=== PATIENT | female | born 1970 | race American Indian/Alaskan Native ===

== ENCOUNTER 2018-08-27 12:16 | Inpatient (IN) | payer MEDICARE ==
[2018-08-27] MEDS ORDERED: VANCOMYCIN 1,000 MG in NACL 0.9% 500 ML 500 ML IV ONE (12:34)
[2018-08-27] MEDS ORDERED: NACL 0.9% 1000 ML IV ONE (12:34)
[2018-08-27] MEDS ORDERED: CLEOCIN 600 MG/50 mL 600 MG/50 ML BAG IV ONE (12:38)
[2018-08-27] MEDS ORDERED: TYLENOL PR ONE (12:38)
--- NOTE | 2018-08-27 12:38 | Emergency Department Report ---
ED General Adult HPI - General Chief complaint: Fever Stated complaint: LOW BLOOD PRESSURE Time Seen by Provider: 08/27/18 12:33 Source: patient, EMS (ems notes not available at time of chart dictation), RN notes reviewed, old records reviewed Mode of arrival: Stretcher Limitations: Physical Limitation, Other (patient poor historian. Patient has Down syndrome.) - History of Present Illness Initial comments: Primary care Dr.: Dr. Mercer Past medical history: Down syndrome, anemia, iron deficiency anemia, depression, Alzheimer's, functional paraplegia, chronic sacral wounds His is a 48-year-old female who is brought to the hospital by EMS for history of hypotension. Patient currently being treated with doxycycline for "upper respiratory tract infection", as per her [facility] paperwork. As per verbal report from EMS, blood pressure was in the 90s, and may have had a fever. Patient is poorly verbal, a poor historian, he cannot describe exacerbating or relief factors. She is not able to describe the qualitative nature of her symptoms. Patient found to be febrile to 101, initially somewhat hypotensive with a blood pressure in the 90s, found to have a necrotic sacral wound, with foul-smelling discharge. Patient called as a code sepsis, and was resuscitated with IV fluids, vancomycin and aztreonam. Prior culture results were reviewed from August 2017, demonstrating Escherichia coli, with intermediate sensitivity to multiple agents, but sensitive to aztreonam. Patient was seen in consultation with general surgery, Dr. Beck, who will see the patient in consultation. Hospital physician, Dr. Perez, has accepted the patient to the medical service for continued medical management of presumed sepsis secondary to infected sacral wound, and possible healthcare associated pneumonia. -: unknown Quality: other Consistency: other Improves with: other Worsens with: other Associated Symptoms: fever/chills, weakness - Related Data Home Medications Medication Instructions Recorded Confirmed Last Taken Acetaminophen [Non-Aspirin] 650 mg PO Q4H 09/07/17 09/07/17 Unknown Docusate Sodium [Colace CAP] 100 mg PO BID PRN 09/07/17 09/07/17 Unknown Donepezil HCl 5 mg PO HS 09/07/17 09/07/17 Unknown Doxycycline Hyclate [Doxycycline 100 mg PO BID 09/07/17 09/07/17 Unknown Hyclate TAB] Famotidine [Pepcid] 20 mg PO BID 09/07/17 09/07/17 Unknown Ferrous Sulfate [Feosol 325 MG tab] 325 mg PO BID 09/07/17 09/07/17 Unknown Folic Acid [Folvite] 1 mg PO DAILY 09/07/17 09/07/17 Unknown Ipratropium/Albuterol Sulfate 1 puff PO BID 09/07/17 09/07/17 Unknown [DUONEB *Not for PRN Use*] Ketoconazole 2% [Nizoral] 1 applicatio TP DAILY 09/07/17 09/07/17 Unknown Vit D3/Folic Acid/B2/B6/B12 1 each PO DAILY 09/07/17 09/07/17 Unknown [Folgard Tablet] guaiFENesin DM [Robitussin Dm] 10 ml PO TID 09/07/17 09/07/17 Unknown Previous Rx's Medication Instructions Recorded Last Taken Type Warfarin [Coumadin] 5 mg PO DAILY@1700 #30 tablet 09/15/17 Unknown Rx cefUROXime [Ceftin] 500 mg PO Q12H 3 Days tablet 09/15/17 Unknown Rx Allergies Allergy/AdvReac Type Severity Reaction Status Date / Time lisinopril Allergy Unknown Verified 09/07/17 14:53 Penicillins Allergy Unknown Verified 09/07/17 14:53 ED Review of Systems ROS: Stated complaint: LOW BLOOD PRESSURE Other details as noted in HPI Comment: Unobtainable due to pts medical conditions Constitutional: fever ED Past Medical Hx - Past Medical History Additional medical history: Iron deficiency, Down Syndrome, Alzheimer's Disease, Major Depressive, Deficiency of other specified group vitamins, Spinal Stenosis, Paraplegia, gastro-esophageal reflux disease esophagitis, essential hypertension, anemia, calculus of kidney - Surgical History Additional Surgical History: cardiac surgery scar - Social History Smoking Status: Never Smoker - Medications Home Medications: Home Medications Medication Instructions Recorded Confirmed Last Taken Type Acetaminophen [Non-Aspirin] 650 mg PO Q4H 09/07/17 09/07/17 Unknown History Docusate Sodium [Colace CAP] 100 mg PO BID PRN 09/07/17 09/07/17 Unknown History Donepezil HCl 5 mg PO HS 09/07/17 09/07/17 Unknown History Doxycycline Hyclate [Doxycycline 100 mg PO BID 09/07/17 09/07/17 Unknown History Hyclate TAB] Famotidine [Pepcid] 20 mg PO BID 09/07/17 09/07/17 Unknown History Ferrous Sulfate [Feosol 325 MG tab] 325 mg PO BID 09/07/17 09/07/17 Unknown History Folic Acid [Folvite] 1 mg PO DAILY 09/07/17 09/07/17 Unknown History Ipratropium/Albuterol Sulfate 1 puff PO BID 09/07/17 09/07/17 Unknown History [DUONEB *Not for PRN Use*] Ketoconazole 2% [Nizoral] 1 applicatio TP DAILY 09/07/17 09/07/17 Unknown History Vit D3/Folic Acid/B2/B6/B12 1 each PO DAILY 09/07/17 09/07/17 Unknown History [Folgard Tablet] guaiFENesin DM [Robitussin Dm] 10 ml PO TID 09/07/17 09/07/17 Unknown History Warfarin [Coumadin] 5 mg PO DAILY@1700 #30 tablet 09/15/17 Unknown Rx cefUROXime [Ceftin] 500 mg PO Q12H 3 Days tablet 09/15/17 Unknown Rx ED Physical Exam - General Limitations: Physical Limitation General appearance: in no apparent distress, obese - Head Head exam: Present: atraumatic - Eye Eye exam: Present: normal appearance - ENT ENT exam: Present: normal orophraynx, mucous membranes dry, normal external ear exam - Neck Neck exam: Present: normal inspection, full ROM. Absent: tenderness, meningismus - Respiratory Respiratory exam: Present: decreased breath sounds. Absent: respiratory distress, wheezes, rales, rhonchi, stridor - Cardiovascular Cardiovascular Exam: Present: normal rhythm, tachycardia, normal heart sounds - GI/Abdominal GI/Abdominal exam: Present: soft. Absent: distended, tenderness, guarding, rebound, rigid, pulsatile mass - Rectal Rectal exam: Present: other (unstable sacral wound, with black necrotic tissue, foul-smelling) - Extremities Exam Extremities exam: Present: other (ulcers noted on the bilateral heels.) - Back Exam Back exam: Present: normal inspection. Absent: tenderness, CVA tenderness (R), paraspinal tenderness - Neurological Exam Neurological exam: Present: alert (alert to name. Answer simple questions. Moving upper extremities spontaneously.), other (unable to complete detailed neurologic examination secondary to Down syndrome.) - Psychiatric Psychiatric exam: Present: anxious - Skin Skin exam: Present: other (unstageable sacral ulcer noted.). Absent: intact ED Course Vital Signs 08/27/18 08/27/18 08/27/18 12:47 14:22 16:37 Temperature 101.2 F H Temperature [ Pre-Procedure] Pulse Rate 115 H 101 H 90 Pulse Rate [Pre -Procedure] Respiratory 16 16 16 Rate Respiratory Rate [Pre- Procedure] Blood Pressure 90/50 Blood Pressure [Pre-Procedure] Blood Pressure 90/50 99/66 98/59 [Right] O2 Sat by Pulse 98 96 96 Oximetry 08/27/18 08/27/18 08/27/18 18:00 18:44 18:57 Temperature Temperature [ 99.0 F Pre-Procedure] Pulse Rate 88 88 Pulse Rate [Pre 100 H -Procedure] Respiratory 16 16 Rate Respiratory 18 Rate [Pre- Procedure] Blood Pressure Blood Pressure 80/53 [Pre-Procedure] Blood Pressure 79/48 92/59 [Right] O2 Sat by Pulse 98 96 Oximetry - Procedure Description Procedures done: Using ultrasound guidance, left internal jugular vein was visualized, and a 3 inch 18-gauge Angiocath is advanced, after the area is p repped with typical aseptic technique, and anesthetized with 5 mL of 1% lidocaine. Vein collapse, unable to cannulate, catheter withdrawn, direct pressure applied, patient tolerated the procedure well without complication. - Central Line Placement Right Femoral Consent Obtained: emergent situation Time Out Performed: Yes Patient Placed on Monitor/Pulse Ox: Yes MD Prep: mask, gown, gloves Central Line Prep: Povidone-Iodine 1%, Chlorhexidine scrub, sterile drapes applied Local Anesthesia Used: Lidocaine 2% Amount of Anesthesia Used (mls): 10 Ultrasound Used for Placement: Yes Central Line Lumen Inserted: triple Bloods Obtained for Lab: No Central Line Position: good blood return, all ports aspirated, flus, sutured in place with 2-0 Dressing Applied: Tegaderm Patient Tolerated Procedure: well, no complications Complications: none left femoral Consent Obtained: emergent situation Time Out Performed: Yes Patient Placed on Monitor/Pulse Ox: Yes MD Prep: mask, gown, gloves Central Line Prep: Povidone-Iodine 1%, Chlorhexidine scrub, sterile drapes applied Local Anesthesia Used: Lidocaine 1% Amount of Anesthesia Used (mls): 10 Ultrasound Used for Placement: Yes Central Line Lumen Inserted: triple Bloods Obtained for Lab: No Additional Comments: Using ultrasound guidance, the left femoral vein is visualized. Catheter is a dvanced, and successfully cannulates left femoral vein, however line became contaminated secondary wires touching the line, therefore line is withdrawn, dispose of, direct pressure applied, wound cleansed, and bandaged. Patient tolerated the procedure well. ED Medical Decision Making - Lab Data Result diagrams: 08/27/18 13:15 08/27/18 13:15 Vital Signs 08/27/18 08/27/18 12:47 14:22 Temperature 101.2 F H Pulse Rate 115 H 101 H Respiratory 16 16 Rate Blood Pressure 90/50 Blood Pressure 90/50 99/66 [Right] O2 Sat by Pulse 98 96 Oximetry Lab Results 08/27/18 08/27/18 08/27/18 Range/Units 13:15 13:15 13:15 WBC 15.2 H (4.5-11.0) K/mm3 RBC 3.34 L (3.65-5.03) M/mm3 Hgb 9.1 L (10.1-14.3) gm/dl Hct 29.2 L (30.3-42.9) % MCV 87 (79-97) fl MCH 27 L (28-32) pg MCHC 31 (30-34) % RDW 19.3 H (13.2-15.2) % Plt Count 438 (140-440) K/mm3 Lymph % (Auto) 12.2 L (13.4-35.0) % Pickett % (Auto) 5.5 (0.0-7.3) % Eos % (Auto) 0.3 (0.0-4.3) % Baso % (Auto) 0.9 (0.0-1.8) % Lymph # 1.9 (1.2-5.4) K/mm3 Pickett # 0.8 (0.0-0.8) K/mm3 Eos # 0.0 (0.0-0.4) K/mm3 Baso # 0.1 (0.0-0.1) K/mm3 Seg Neutrophils % 81.1 H (40.0-70.0) % Seg Neutrophils # 12.4 H (1.8-7.7) K/mm3 PT (12.2-14.9) Sec. INR (0.87-1.13) APTT (24.2-36.6) Sec. Sodium (137-145) mmol/L Potassium (3.6-5.0) mmol/L Chloride (98-107) mmol/L Carbon Dioxide (22-30) mmol/L Anion Gap mmol/L BUN (7-17) mg/dL Creatinine (0.7-1.2) mg/dL Estimated GFR ml/min BUN/Creatinine Ratio % Glucose (65-100) mg/dL Lactic Acid 1.80 (0.7-2.0) mmol/L Calcium (8.4-10.2) mg/dL Total Bilirubin (0.1-1.2) mg/dL AST (5-40) units/L ALT (7-56) units/L Alkaline Phosphatase (35-129) units/L Total Creatine Kinase (30-135) units/L Total Protein (6.3-8.2) g/dL Albumin (3.9-5) g/dL Albumin/Globulin Ratio % Blood Type A POSITIVE Antibody Screen Negative 08/27/18 08/27/18 Range/Units 13:15 13:15 WBC (4.5-11.0) K/mm3 RBC (3.65-5.03) M/mm3 Hgb (10.1-14.3) gm/dl Hct (30.3-42.9) % MCV (79-97) fl MCH (28-32) pg MCHC (30-34) % RDW (13.2-15.2) % Plt Count (140-440) K/mm3 Lymph % (Auto) (13.4-35.0) % Pickett % (Auto) (0.0-7.3) % Eos % (Auto) (0.0-4.3) % Baso % (Auto) (0.0-1.8) % Lymph # (1.2-5.4) K/mm3 Pickett # (0.0-0.8) K/mm3 Eos # (0.0-0.4) K/mm3 Baso # (0.0-0.1) K/mm3 Seg Neutrophils % (40.0-70.0) % Seg Neutrophils # (1.8-7.7) K/mm3 PT 16.4 H (12.2-14.9) Sec. INR 1.28 H (0.87-1.13) APTT 37.8 H (24.2-36.6) Sec. Sodium 147 H (137-145) mmol/L Potassium 4.4 (3.6-5.0) mmol/L Chloride 112.3 H (98-107) mmol/L Carbon Dioxide 22 (22-30) mmol/L Anion Gap 17 mmol/L BUN 33 H (7-17) mg/dL Creatinine 1.1 (0.7-1.2) mg/dL Estimated GFR > 60 ml/min BUN/Creatinine Ratio 30 % Glucose 121 H (65-100) mg/dL Lactic Acid (0.7-2.0) mmol/L Calcium 8.3 L (8.4-10.2) mg/dL Total Bilirubin 0.30 (0.1-1.2) mg/dL AST 35 (5-40) units/L ALT 35 (7-56) units/L Alkaline Phosphatase 87 (35-129) units/L Total Creatine Kinase 242 H (30-135) units/L Total Protein 6.5 (6.3-8.2) g/dL Albumin 2.4 L (3.9-5) g/dL Albumin/Globulin Ratio 0.6 % Blood Type Antibody Screen - Radiology Data Radiology results: report reviewed, image reviewed X-ray of the chest shows median sternotomy, airspace opacities. CT scan of the pelvis: Findings [facility] [address] [place] [address] Cat Scan Report Signed Patient: JOANA MOER MR#: [id number] : 1970 Acct:[id number] Age/Sex: 48 / F ADM Date: 08/27/18 [facility] [address]: VIGNESH PEREZ MD Ordering Physician: MORTEZA FAGAN MD Date of Service: 08/27/18 Procedure(s): CT pelvis wo con Accession Number(s): [id number] cc: MORTEZA FAGAN MD FINAL REPORT PROCEDURE: CT PELVIS WO CON TECHNIQUE: Computerized axial tomography of the pelvis was performed without contrast material. HISTORY: infected wound. BEST STUDY POSSIBLE. PT HAS MENTAL/PHYSICAL DISABILITY. COMPARISON: None available for comparison TECHNICAL QUALITY: Satisfactory. FINDINGS: Imaged small and large intestine: There is a large volume of stool in the visualized portions of the colon. Genitourinary system: Urinary bladder wall thickening. The uterus is present. Lymph nodes/mesentery: Bilateral inguinal lymphadenopathy Intraperitoneal fluid: None . There is a right hip joint effusion. There are subarticular cysts or erosions in the right acetabulum and right femoral head. This could be related to an inflammatory arthritis, with infectious arthritis not excluded. There also some erosive changes of the posterior cortex of the right acetabulum. There is stranding in the right posterior subcutaneous tissues which could be related to cellulitis. There appear to be a few dots of subcutaneous air also present, which could be related to the given history of a wound. IMPRESSION: There is a right hip joint effusion with subarticular erosive changes, as well as erosive changes of the posterior right acetabulum. Although findings could be related to nonspecific inflammatory arthritis, cannot exclude inflammatory infectious process. There is right posterior subcutaneous stranding and a few dots of air, which are compatible with given history of a soft tissue wound. No IV contrast was administered to evaluate for small abscess. Transcribed By: [facility] Dictated By: DEYANIRA BRANHAM M.D. Electronically Authenticated By: Dianelys TAMAYO Date/Time: 08/27/18 [id number] - Medical Decision Making Differential diagnosis, including but not limited to: Urinary tract infection, pneumonia, bacteremia, inspected sacral decubitus ulcer Assessment and plan: 48-year-old female with probable sepsis secondary to infected sacral decubitus ulcer. Patient febrile, tachycardic, initially hypotensive, blood pressure now the 100s. Pending bed placement. Right femoral central line was attempted in the right groin, however it was aborted due to breaches in sterility. The patient tolerated this procedure wel l. Blood pressure now in the 100s, patient being adequately resuscitated, and does have peripheral IV access. Currently, does not meet criteria for vasopressor therapy, does not require central venous access at this time. Critical Care Time: Yes Critical care time in (mins) excluding proc time.: 35 Critical care attestation.: If time is entered above; I have spent that time in minutes in the direct care of this critically ill patient, excluding procedure time. ED Disposition Clinical Impression: Infected decubitus ulcer Sepsis Qualifiers: Sepsis type: sepsis due to unspecified organism Qualified Code(s): A41.9 - Sepsis, unspecified organism Disposition: DC-09 OP ADMIT IP TO THIS HOSP Is pt being admited?: Yes Condition: Fair
[2018-08-27] MEDS ORDERED: VANCOMYCIN/NS 1 GM/250 ML 1 GM/250 ML BAG IV ONE (13:00)
[2018-08-27] MEDS ORDERED: XYLOCAINE 1% 20 mL INFILTRATI ONE (13:10)
--- NOTE | 2018-08-27 13:18 | Consultation ---
History of Present Illness Consult date: 08/27/18 Chief complaint: sespis, sacral wound - History of present illness History of present illness: 48 yo F with hx of down's syndrome, bedbound, residing at custodial who presents for hypotension. She was found to have a foul smelling sacral wound along with multiple other wounds. The patient cannot provide any history due to baseline mental status and all history is obtained from the chart. No family at the bedside. Further workup of hypotension is pending. Surgery consulted by ER to evaluate sacral wounds. +fever in ER of 101.2 Past History Past Medical History: other (downs syndrome, GERD, dementia) Social history: other (lives in custodial) Family history: no significant family history Medications and Allergies Allergies Allergy/AdvReac Type Severity Reaction Status Date / Time lisinopril Allergy Unknown Verified 09/07/17 14:53 Penicillins Allergy Unknown Verified 09/07/17 14:53 Home Medications Medication Instructions Recorded Confirmed Last Taken Type Acetaminophen [Non-Aspirin] 650 mg PO Q4H 09/07/17 09/07/17 Unknown History Docusate Sodium [Colace CAP] 100 mg PO BID PRN 09/07/17 09/07/17 Unknown History Donepezil HCl 5 mg PO HS 09/07/17 09/07/17 Unknown History Doxycycline Hyclate [Doxycycline 100 mg PO BID 09/07/17 09/07/17 Unknown History Hyclate TAB] Famotidine [Pepcid] 20 mg PO BID 09/07/17 09/07/17 Unknown History Ferrous Sulfate [Feosol 325 MG tab] 325 mg PO BID 09/07/17 09/07/17 Unknown History Folic Acid [Folvite] 1 mg PO DAILY 09/07/17 09/07/17 Unknown History Ipratropium/Albuterol Sulfate 1 puff PO BID 09/07/17 09/07/17 Unknown History [DUONEB *Not for PRN Use*] Ketoconazole 2% [Nizoral] 1 applicatio TP DAILY 09/07/17 09/07/17 Unknown History Vit D3/Folic Acid/B2/B6/B12 1 each PO DAILY 09/07/17 09/07/17 Unknown History [Folgard Tablet] guaiFENesin DM [Robitussin Dm] 10 ml PO TID 09/07/17 09/07/17 Unknown History Warfarin [Coumadin] 5 mg PO DAILY@1700 #30 tablet 09/15/17 Unknown Rx cefUROXime [Ceftin] 500 mg PO Q12H 3 Days tablet 09/15/17 Unknown Rx Active Meds: Active Medications Vancomycin HCl (Vancomycin/Ns 1 Gm/250 Ml) 1 gm in 250 mls @ 166.667 mls/hr IV ONCE.ED ONE Stop: 08/27/18 14:29 Aztreonam 500 mg/ Sodium (Chloride) 50 mls @ 50 mls/hr IV Q12H YOSEPH; Protocol Sodium Hypochlorite (Dakin's Half Strength) 1 applic TP ONCE ONE Stop: 08/27/18 13:17 Review of Systems ROS unobtainable: due to mental status Exam Vital Signs Temp Pulse Resp BP Pulse Ox 101.2 F H 115 H 16 90/50 96 08/27/18 12:47 08/27/18 12:47 08/27/18 12:47 08/27/18 12:47 08/27/18 12:47 Narrative exam: Gen; awake and alert. NAD ENT: no scleral icterus or conjunctival pallor CV: s1, S2+ resp: even and unlabored Ext: multiple stage 2 wounds of feet - do not appear to be infected sacrum: large excoriation of lower back and sacral area with an approximately 5cm unstageable sacral wound. Foul smelling with necrotic tissue throughout wound. No drainage. No surrounding cellulitis. Moderate sensation in the area. Assessment and Plan 48 yo F with 1. unstageable sacral wound, infected 2. sepsis 3. hypotension Plan; 1. dakins to all wounds 2. antibiotics 3. sepsis w/u per 1'. 4. will need debridement of wound - will check with OR in the am to see when we can get her scheduled 5. consulting psychiatrist consult Thank you, please call with questions.
[2018-08-27 13:36] LABS: Basophils # (Auto) 0.1 K/mm3 (0.0-0.1); Basophils % (Auto) 0.9 % (0.0-1.8); Eosinophils % (Auto) 0.3 % (0.0-4.3); Hemoglobin 9.1 gm/dl (10.1-14.3); Lymphocytes # (Auto) 1.9 K/mm3 (1.2-5.4); Lymphocytes % (Auto) 12.2 % (13.4-35.0); Monocytes # (Auto) 0.8 K/mm3 (0.0-0.8); Monocytes % (Auto) 5.5 % (0.0-7.3)
[2018-08-27 13:45] LABS: Hematocrit 29.2 % (30.3-42.9); Mean Corpuscular HGB Conc 31 % (30-34); Mean Corpuscular Volume 87 fl (79-97); Platelet Count 438 K/mm3 (140-440); Red Blood Count 3.34 M/mm3 (3.65-5.03); Red Cell Distribution Width 19.3 % (13.2-15.2)
[2018-08-27 13:46] LABS: INR 1.28 (0.87-1.13)
[2018-08-27 13:47] LABS: Partial Thromboplastin Time 37.8 Sec. (24.2-36.6)
[2018-08-27 13:58] LABS: Alanine Aminotransferase 35 units/L (7-56); Albumin 2.4 g/dL (3.9-5); BUN/Creatinine Ratio 30; Blood Urea Nitrogen 33 mg/dL (7-17); Calcium 8.3 mg/dL (8.4-10.2); Hemolysis Index 3
[2018-08-27] MEDS ORDERED: DAKIN'S HALF STRENGTH TP ONE (14:16)
--- NOTE | 2018-08-27 14:17 | XRay Report ---
FINAL REPORT PROCEDURE: XR CHEST 1V AP TECHNIQUE: Chest radiograph anteroposterior view. CPT 35827 HISTORY: sepsis COMPARISON: 09/08/2017 FINDINGS: Heart: Normal. Mediastinum/Vessels: Normal. Lungs/Pleural space: Minimal patchy bilateral perihilar airspace opacities. No effusion or pneumothor ax. Bony thorax: No acute osseous abnormality. Life support devices: None. IMPRESSION: Mild patchy bilateral perihilar airspace opacities could be related to mild pulmonary edema or infect ious process.
[2018-08-27] MEDS ORDERED: TYLENOL PO ONE (14:23)
--- NOTE | 2018-08-27 14:25 | History and Physical Report ---
History of Present Illness Chief complaint: Unresponsive History of present illness: 48 YO Female [employer] [facility] Res[facility] with Downs Syndrome, Dementia, Debility, Sacral Decubitus Ulcer, HTN, GERD, Spinal Stenosis, Depression, Paraplegia presents to ED for evaluation. Pt is stuporous and unable to provide history. Pt history taken from ED staff as well as SNF staff. As per staff, the patient was found to have foul smelling discharge in the area of her sacral decubitus ulcer, as well as fever to 101.2 and low blood pressure. EMS notified and upon arrival the patient was found to be in distress with systolic blood pressure in the 80's. Pt transported to [facility] for further care and evaluation. Pt seen and evaluated in ED and found to have Sepsis, Infected Sacral Decubitus Ulcer and Encephalopathy. Pt admitted to [facility] and initiated on sepsis protocol. Surgery consulted in ED. Past History Past Medical History: pulmonary embolism, other (downs syndrome, GERD, dementia) Past Surgical History: CABG Social history: single, other (lives in residential) Family history: no significant family history Medications and Allergies Allergies Allergy/AdvReac Type Severity Reaction Status Date / Time lisinopril Allergy Unknown Verified 09/07/17 14:53 Penicillins Allergy Unknown Verified 09/07/17 14:53 Home Medications Medication Instructions Recorded Confirmed Last Taken Type Acetaminophen [Non-Aspirin] 650 mg PO Q4H 09/07/17 09/07/17 Unknown History Docusate Sodium [Colace CAP] 100 mg PO BID PRN 09/07/17 09/07/17 Unknown History Donepezil HCl 5 mg PO HS 09/07/17 09/07/17 Unknown History Doxycycline Hyclate [Doxycycline 100 mg PO BID 09/07/17 09/07/17 Unknown History Hyclate TAB] Famotidine [Pepcid] 20 mg PO BID 09/07/17 09/07/17 Unknown History Ferrous Sulfate [Feosol 325 MG tab] 325 mg PO BID 09/07/17 09/07/17 Unknown History Folic Acid [Folvite] 1 mg PO DAILY 09/07/17 09/07/17 Unknown History Ipratropium/Albuterol Sulfate 1 puff PO BID 09/07/17 09/07/17 Unknown History [DUONEB *Not for PRN Use*] Ketoconazole 2% [Nizoral] 1 applicatio TP DAILY 09/07/17 09/07/17 Unknown History Vit D3/Folic Acid/B2/B6/B12 1 each PO DAILY 09/07/17 09/07/17 Unknown History [Folgard Tablet] guaiFENesin DM [Robitussin Dm] 10 ml PO TID 09/07/17 09/07/17 Unknown History Warfarin [Coumadin] 5 mg PO DAILY@1700 #30 tablet 09/15/17 Unknown Rx cefUROXime [Ceftin] 500 mg PO Q12H 3 Days tablet 09/15/17 Unknown Rx Active Meds: Active Medications Vancomycin HCl (Vancomycin/Ns 1 Gm/250 Ml) 1 gm in 250 mls @ 166.667 mls/hr IV ONCE.ED ONE Stop: 08/27/18 14:29 Aztreonam 500 mg/ Sodium (Chloride) 50 mls @ 50 mls/hr IV Q12H YOSEPH; Protocol Review of Systems ROS unobtainable: due to mental status Exam - Constitutional Vitals: Temp Pulse Resp BP Pulse Ox 101.2 F H 101 H 16 99/66 96 08/27/18 12:47 08/27/18 14:22 08/27/18 14:22 08/27/18 14:22 08/27/18 14:22 General appearance: Present: mild distress - EENT Eyes: Present: miosis - Neck Neck: Present: supple, normal ROM - Respiratory Respiratory effort: normal Respiratory: bilateral: CTA - Cardiovascular Rhythm: other (tachycardia) Heart Sounds: Present: S1 & S2. Absent: rub, click Peripheral Pulses: abnormal (capillary refill greater than 3.5 seconds) - Abdominal General gastrointestinal: Present: soft, non-tender, non-distended, normal bowel sounds Female genitourinary: Present: normal - Integumentary Integumentary: Present: clear, dry, clammy, pale, decreased turgor - Musculoskeletal Musculoskeletal: generalized weakness - Psychiatric Psychiatric: no appropriate mood/affect, no intact judgment & insight, no memory intact - Neurologic Neurologic: CNII-XII intact, moves all extremities, no gait normal Results - Labs CBC & Chem 7: 08/27/18 13:15 08/27/18 13:15 Labs: Abnormal lab results 08/27/18 08/27/18 08/27/18 Range/Units 13:15 13:15 13:15 WBC 15.2 H (4.5-11.0) K/mm3 RBC 3.34 L (3.65-5.03) M/mm3 Hgb 9.1 L (10.1-14.3) gm/dl Hct 29.2 L (30.3-42.9) % MCH 27 L (28-32) pg RDW 19.3 H (13.2-15.2) % Lymph % (Auto) 12.2 L (13.4-35.0) % Seg Neutrophils % 81.1 H (40.0-70.0) % Seg Neutrophils # 12.4 H (1.8-7.7) K/mm3 PT 16.4 H (12.2-14.9) Sec. INR 1.28 H (0.87-1.13) APTT 37.8 H (24.2-36.6) Sec. Sodium 147 H (137-145) mmol/L Chloride 112.3 H (98-107) mmol/L BUN 33 H (7-17) mg/dL Glucose 121 H (65-100) mg/dL Calcium 8.3 L (8.4-10.2) mg/dL Total Creatine Kinase 242 H (30-135) units/L Albumin 2.4 L (3.9-5) g/dL Assessment and Plan - Patient Problems (1) Sepsis Current Visit: Yes Status: Acute Qualifiers: Sepsis type: sepsis due to unspecified organism Qualified Code(s): A41.9 - Sepsis, unspecified organism Plan to address problem: Sepsis protocol: IV Antibiotic therapy, IVF resuscitation therapy, serial lactic acid level, monitor uop q shift, chest x ray, CBC, CMP, (2) Encephalopathy Current Visit: Yes Status: Acute Plan to address problem: Toxic encephalopathy: Treat sepsis, neuro checks, seizure precautions, IVF res uscitation therapy. (3) Infected decubitus ulcer Current Visit: Yes Status: Acute Plan to address problem: IV antiboitic therapy, wound care consulted, surgery consulted in ED. (4) DVT prophylaxis Current Visit: Yes Status: Acute Plan to address problem: SCD to BLE while in bed.
[2018-08-27] MEDS ORDERED: SODIUM CHLORIDE FLUSH SYRINGE 10 ML IV PRN (14:53)
[2018-08-27] MEDS ORDERED: MORPHINE IV PRN (14:53)
[2018-08-27] MEDS ORDERED: COLACE PO PRN (14:57)
[2018-08-27] MEDS: TYLENOL PO SCH ×2 (15:07→22:43)
[2018-08-27] MEDS: NACL 0.9% IV SCH (16:14)
[2018-08-27] MEDS: AZACTAM IV SCH (16:14)
[2018-08-27] MEDS ORDERED: COUMADIN PO SCH (17:00)
--- NOTE | 2018-08-27 17:07 | Cat Scan Report ---
FINAL REPORT PROCEDURE: CT PELVIS WO CON TECHNIQUE: Computerized axial tomography of the pelvis was performed without contrast material. HISTORY: infected wound. BEST STUDY POSSIBLE. PT HAS MENTAL/PHYSICAL DISABILITY. COMPARISON: None available for comparison TECHNICAL QUALITY: Satisfactory. FINDINGS: Imaged small and large intestine: There is a large volume of stool in the visualized portions of the colon. Genitourinary system: Urinary bladder wall thickening. The uterus is present. Lymph nodes/mesentery: Bilateral inguinal lymphadenopathy Intraperitoneal fluid: None . There is a right hip joint effusion. There are subarticular cysts or erosions in the right acetabulum and right femoral head. This could be related to an inflammatory arthritis, with infectious arthriti s not excluded. There also some erosive changes of the posterior cortex of the right acetabulum. Ther e is stranding in the right posterior subcutaneous tissues which could be related to cellulitis. Ther e appear to be a few dots of subcutaneous air also present, which could be related to the given histo ry of a wound. IMPRESSION: There is a right hip joint effusion with subarticular erosive changes, as well as erosive changes of the posterior right acetabulum. Although findings could be related to nonspecific inflammatory arthri tis, cannot exclude inflammatory infectious process. There is right posterior subcutaneous stranding and a few dots of air, which are compatible with give n history of a soft tissue wound. No IV contrast was administered to evaluate for small abscess.
[2018-08-27] MEDS ORDERED: NACL 0.9% 1000 ML 1,000 ML ONE ×2 (17:59)
[2018-08-27] MEDS ORDERED: XYLOCAINE 1% 20 mL ONE (18:09)
[2018-08-27] MEDS ORDERED: LEVOPHED DRIP 4 MG/NS 250 ML 4 MG/250 ML BAG IV ONE (19:07)
[2018-08-27] MEDS: LEVOPHED DRIP 4 MG/NS 250 ML 4 MG/250 ML BAG IV SCH (19:42)
[2018-08-27] MEDS ORDERED: NACL 0.45% 1000 ML 1,000 ML IV ONE (22:43)
[2018-08-27] MEDS: NACL 0.45% 1000 ML 1,000 ML IV SCH (22:45)
[2018-08-27] MEDS: ARICEPT PO SCH (22:53)
[2018-08-27] MEDS: FEOSOL PO SCH (22:54)
[2018-08-27] MEDS: PEPCID PO SCH (22:54)
[2018-08-27] MEDS: SODIUM CHLORIDE FLUSH SYRINGE 10 ML IV SCH (22:54)
[2018-08-28 00:41] LABS: Bacteria,Urine 1+ /HPF (Negative); Bilirubin,Urine NEG (Negative); Blood,Urine MOD (Negative); Color,Urine Yellow (Yellow); Mucus,Urine FEW /HPF; Urobilinogen,Urine < 2.0 mg/dL (<2.0)
[2018-08-28 00:53] LABS: WBC,Urine > 182.0 /HPF (0.0-6.0)
[2018-08-28] MEDS: TYLENOL PO SCH ×6 (02:31→19:00)
[2018-08-28] MEDS ORDERED: LEVOPHED DRIP 4 MG/NS 250 ML 4 MG/250 ML BAG IV ONE ×2 (03:54→15:30)
[2018-08-28] MEDS: NACL 0.9% IV SCH ×2 (03:56→14:00)
[2018-08-28] MEDS: AZACTAM IV SCH ×2 (03:56→14:00)
[2018-08-28 05:02] LABS: INR 1.32 (0.87-1.13)
[2018-08-28] MEDS ORDERED: NACL 0.45% 1000 ML 1,000 ML IV ONE ×2 (06:28→14:21)
--- NOTE | 2018-08-28 07:15 | Progress Note ---
Assessment and Plan Assessment and plan: Unresponsive History of present illness: 48 YO Female [facility] [facility] Resident with Downs Syndrome, Dementia, Debility, Sacral Decubitus Ulcer, HTN, GERD, Spinal Stenosis, Depression, Paraplegia presents to ED for evaluation. Pt is stuporous and unable to provide history. Pt history taken from ED staff as well as SNF staff. As per staff, the patient was found to have foul smelling discharge in the area of her sacral decubitus ulcer, as well as fever to 101.2 and low blood pressure. EMS notified and upon arrival the patient was found to be in distress with systolic blood pressure in the 80's. Pt transported to [facility] for further care and evaluation. Pt seen and evaluated in ED and found to have Sepsis, Infected Sacral Decubitus Ulcer and Encephalopathy. Pt admitted to [facility] and initiated on sepsis protocol. Surgery consulted in ED. Past History Past Medical History: hx of pulmonary embolism, other (downs syndrome, GERD, dementia) Sepsis/ Infected decubitus ulcer POA wound care, empiric abx, case dw jessie DUKE to wounds, planned for surgical debridement metabolic Encephalopathy due to sepsis, improving hx of PE; on warfarin, INR currently 1.3 dvt ppx; chemical fully anticoagulated on warfarin, will dw periop INR goal with mann DUKE 1.3 History Interval history: Review of systems Constitutional: No fevers, no malaise, no joint pains CVS: No chest pain, no orthopnea, no dyspnea on exertion, no pedal edema GI: No abdominal pain, no diarrhea, no vomiting, no constipation Respiratory: No shortness of breath, no wheezing, no coughing Hospitalist Physical - Physical exam Narrative exam: General.:mild distress HEENT: Moist mucous membranes, extraocular muscles intact, no lymphadenopathy Neck: supple Cardiac: S1-S2 heard Lungs: clear to auscultation bilaterally Abdomen: soft , nontender, nondistended, bowel sounds positive Extremities: no edema clubbing or cyanosis Skin: : multiple stage 2 wounds of feet - do not appear to be infected sacrum: large excoriation of lower back and sacral area with an approximately 5cm unstageable sacral wound. Foul smelling with necrotic tissue throughout wound. No drainage. No surrounding cellulitis. Moderate sensation in the area. Neurologic: non verbal, moves all extremities Psych: calm - Constitutional Vitals: Temp Pulse Resp BP Pulse Ox 98.8 F 76 13 106/70 100 08/28/18 04:00 08/28/18 06:45 08/28/18 06:45 08/28/18 06:45 08/28/18 06:45 General appearance: Present: mild distress Results - Labs CBC & Chem 7: 08/27/18 13:15 08/27/18 13:15 Labs: Laboratory Last Values WBC 15.2 K/mm3 (4.5-11.0) H 08/27/18 13:15 RBC 3.34 M/mm3 (3.65-5.03) L 08/27/18 13:15 Hgb 9.1 gm/dl (10.1-14.3) L 08/27/18 13:15 Hct 29.2 % (30.3-42.9) L 08/27/18 13:15 MCV 87 fl (79-97) 08/27/18 13:15 MCH 27 pg (28-32) L 08/27/18 13:15 MCHC 31 % (30-34) 08/27/18 13:15 RDW 19.3 % (13.2-15.2) H 08/27/18 13:15 Plt Count 438 K/mm3 (140-440) 08/27/18 13:15 Lymph % (Auto) 12.2 % (13.4-35.0) L 08/27/18 13:15 [place] % (Auto) 5.5 % (0.0-7.3) 08/27/18 13:15 Eos % (Auto) 0.3 % (0.0-4.3) 08/27/18 13:15 Baso % (Auto) 0.9 % (0.0-1.8) 08/27/18 13:15 Lymph # 1.9 K/mm3 (1.2-5.4) 08/27/18 13:15 [place] # 0.8 K/mm3 (0.0-0.8) 08/27/18 13:15 Eos # 0.0 K/mm3 (0.0-0.4) 08/27/18 13:15 Baso # 0.1 K/mm3 (0.0-0.1) 08/27/18 13:15 Seg Neutrophils % 81.1 % (40.0-70.0) H 08/27/18 13:15 Seg Neutrophils # 12.4 K/mm3 (1.8-7.7) H 08/27/18 13:15 PT 16.8 Sec. (12.2-14.9) H 08/28/18 04:16 INR 1.32 (0.87-1.13) H 08/28/18 04:16 APTT 37.8 Sec. (24.2-36.6) H 08/27/18 13:15 Sodium 147 mmol/L (137-145) H 08/27/18 13:15 Potassium 4.4 mmol/L (3.6-5.0) 08/27/18 13:15 Chloride 112.3 mmol/L (98-107) H 08/27/18 13:15 Carbon Dioxide 22 mmol/L (22-30) 08/27/18 13:15 Anion Gap 17 mmol/L 08/27/18 13:15 BUN 33 mg/dL (7-17) H 08/27/18 13:15 Creatinine 1.1 mg/dL (0.7-1.2) 08/27/18 13:15 Estimated GFR > 60 ml/min 08/27/18 13:15 BUN/Creatinine Ratio 30 % 08/27/18 13:15 Glucose 121 mg/dL (65-100) H 08/27/18 13:15 Lactic Acid 1.40 mmol/L (0.7-2.0) 08/27/18 20:57 Calcium 8.3 mg/dL (8.4-10.2) L 08/27/18 13:15 Total Bilirubin 0.30 mg/dL (0.1-1.2) 08/27/18 13:15 AST 35 units/L (5-40) 08/27/18 13:15 ALT 35 units/L (7-56) 08/27/18 13:15 Alkaline Phosphatase 87 units/L (35-129) 08/27/18 13:15 Total Creatine Kinase 242 units/L (30-135) H 08/27/18 13:15 Total Protein 6.5 g/dL (6.3-8.2) 08/27/18 13:15 Albumin 2.4 g/dL (3.9-5) L 08/27/18 13:15 Albumin/Globulin Ratio 0.6 % 08/27/18 13:15 Urine Color Yellow (Yellow) 08/27/18 00:15 Urine Turbidity Cloudy (Clear) 08/27/18 00:15 Urine pH 5.0 (5.0-7.0) 08/27/18 00:15 Ur Specific [place] 1.010 (1.003-1.030) 08/27/18 00:15 Urine Protein 30 mg/dl mg/dL (Negative) 08/27/18 00:15 Urine Glucose (UA) Neg mg/dL (Negative) 08/27/18 00:15 Urine Ketones Neg mg/dL (Negative) 08/27/18 00:15 Urine Blood Mod (Negative) 08/27/18 00:15 Urine Nitrite Neg (Negative) 08/27/18 00:15 Urine Bilirubin Neg (Negative) 08/27/18 00:15 Urine Urobilinogen < 2.0 mg/dL (<2.0) 08/27/18 00:15 Ur Leukocyte Esterase Lg (Negative) 08/27/18 00:15 Urine WBC (Auto) > 182.0 /HPF (0.0-6.0) H 08/27/18 00:15 Urine RBC (Auto) 37.0 /HPF (0.0-6.0) 08/27/18 00:15 Urine Bacteria (Auto) 1+ /HPF (Negative) 08/27/18 00:15 Urine WBC Clumps 3+ /HPF 08/27/18 00:15 Urine Mucus Few /HPF 08/27/18 00:15 Blood Type A POSITIVE 08/27/18 13: Antibody Screen Negative 08/27/18 13:15
[2018-08-28] MEDS: LEVOPHED DRIP 4 MG/NS 250 ML 4 MG/250 ML BAG IV SCH ×2 (07:42→19:21)
[2018-08-28] MEDS: PEPCID PO SCH (10:00)
[2018-08-28] MEDS: FOLVITE PO SCH (10:00)
[2018-08-28] MEDS ORDERED: NON-FORMULARY (Vit D3/Folic Acid/B2/B6/B12 [Folgard Tablet] 1 EACH) PO SCH (10:00)
[2018-08-28] MEDS: NIZORAL TP SCH (10:00)
[2018-08-28] MEDS: FEOSOL PO SCH (10:00)
--- NOTE | 2018-08-28 11:43 | Consultation ---
History of Present Illness Consult date: 08/28/18 Requesting physician: SHEY GUAMAN Reason for consult: other (Severe sepsis with septic shock) History of present illness: 48 YO Female [facility] Resident with Downs Syndrome, Dementia, Debility, Sacral Decubitus Ulcer, HTN, GERD, Spinal Stenosis, Depression, Paraplegia presents to ED for evaluation. Pt is unable to provide history. Pt history taken from medical records and ED staff She is brought to the hospital by EMS for history of hypotension. Patient currently being treated with doxycycline for "upper respiratory tract infection", as per her halfway paperwork. Patient is poorly verbal, a poor historian, she cannot describe exacerbating or relief factors. She is not able to describe the qualitative nature of her symptoms. Patient found to be febrile to 101.2, initially somewhat hypotensive with a blood pressure in the 90s, found to have a necrotic sacral wound, with foul- smelling discharge. Patient called as a code sepsis, and was resuscitated with IV fluids, vancomycin and aztreonam. Prior culture results from August 2017, demonstrating Escherichia coli, with intermediate sensitivity to multiple agents, but sensitive to aztreonam. Patient received 3L of fluid in [facility] ED and remains hypotensive. A right femoral CVC was placed and the vasopressor support was initiated with norepinephrine. patient continues to require vasopressor support to maintain adequate perfusion pressures. I have been consulted for critical care management. Patient was seen and examined in the ED. Vitals, labs, medications, chart and imaging were reviewed. She is awake, moans and groans but able to give further history. She is currently on vasopressor support. Past medical history: Down syndrome, iron deficiency anemia, depression, functional paraplegia, chronic sacral wounds Past History Past Medical History: pulmonary embolism, other (downs syndrome, GERD, dementia) Past Surgical History: CABG Social history: single, other (lives in halfway) Family history: no significant family history Medications and Allergies Allergies Allergy/AdvReac Type Severity Reaction Status Date / Time lisinopril Allergy Unknown Verified 09/07/17 14:53 Penicillins Allergy Unknown Verified 09/07/17 14:53 Home Medications Medication Instructions Recorded Confirmed Last Taken Type Acetaminophen [Non-Aspirin] 650 mg PO Q8H PRN 09/07/17 08/27/18 Unknown History Docusate Sodium [Colace CAP] 100 mg PO BID PRN 09/07/17 08/27/18 Unknown History Doxycycline Hyclate [Doxycycline 100 mg PO BID 09/07/17 08/27/18 Unknown History Hyclate TAB] Famotidine [Pepcid] 20 mg PO BID 09/07/17 08/27/18 Unknown History Ketoconazole 2% [Nizoral] 1 applicatio TP DAILY 09/07/17 08/27/18 Unknown History Vit D3/Folic Acid/B2/B6/B12 1 each PO DAILY 09/07/17 08/27/18 Unknown History [Folgard Tablet] guaiFENesin DM [Robitussin Dm] 10 ml PO QID PRN 09/07/17 08/27/18 Unknown History Multivitamin Tab W-MINERAL 1 each PO QD 08/27/18 08/27/18 Unknown History [Multiple Vitamin/Mineral (Theragran M)] Active Meds: Active Medications Acetaminophen (Tylenol) 650 mg PO Q4H COUNTS INCLUDE 234 BEDS AT THE [facility] Last Admin: 08/28/18 05:27 Dose: Not Given Documented by: Docusate Sodium (Colace) 100 mg PO BID PRN PRN Reason: Constipation Donepezil HCl (Aricept) 5 mg PO HS COUNTS INCLUDE 234 BEDS AT THE [facility] Last Admin: 08/27/18 22:53 Dose: Not Given Documented by: Famotidine (Pepcid) 20 mg PO BID COUNTS INCLUDE 234 BEDS AT THE [facility] Last Admin: 08/27/18 22:54 Dose: Not Given Documented by: Ferrous Sulfate (Feosol) 325 mg PO BID COUNTS INCLUDE 234 BEDS AT THE [facility] Last Admin: 08/27/18 22:54 Dose: Not Given Documented by: Folic Acid (Folvite) 1 mg PO DAILY COUNTS INCLUDE 234 BEDS AT THE [facility] Guaifenesin (Guaifenesin Dm Syrup) 10 ml PO TID COUNTS INCLUDE 234 BEDS AT THE [facility] Last Admin: 08/27/18 22:53 Dose: Not Given Documented by: Aztreonam 500 mg/ Sodium (Chloride) 50 mls @ 50 mls/hr IV Q12H COUNTS INCLUDE 234 BEDS AT THE [facility]; Protocol Last Admin: 08/28/18 03:56 Dose: 50 mls/hr Documented by: Sodium Chloride (Nacl 0.45% 1000 Ml) 1,000 mls @ 125 mls/hr IV DIRECT COUNTS INCLUDE 234 BEDS AT THE [facility] Last Admin: 08/27/18 22:45 Dose: 125 mls/hr Documented by: Norepinephrine (Levophed Drip 4 Mg/Ns 250 Ml) 4 mg in 250 mls @ 7.5 mls/hr IV TITR YOSEPH; Protocol Last Admin: 08/28/18 07:42 Dose: 8 mcg/min, 30 mls/hr Documented by: Ketoconazole (Nizoral) 1 applic TP DAILY COUNTS INCLUDE 234 BEDS AT THE [facility] Morphine Sulfate (Morphine) 2 mg IV Q4H PRN PRN Reason: Pain, Moderate (4-6) Sodium Chloride (Sodium Chloride Flush Syringe 10 Ml) 10 ml IV BID COUNTS INCLUDE 234 BEDS AT THE [facility] Last Admin: 08/27/18 22:54 Dose: 10 ml Documented by: Sodium Chloride (Sodium Chloride Flush Syringe 10 Ml) 10 ml IV PRN PRN PRN Reason: LINE FLUSH Warfarin Sodium (Coumadin) 5 mg PO DAILY@1700 COUNTS INCLUDE 234 BEDS AT THE [facility]; Protocol Review of Systems ROS unobtainable: due to mental status Physical Examination Vital signs: Vital Signs Temp Pulse Resp BP Pulse Ox 101.2 F H 115 H 16 90/50 96 08/27/18 12:47 08/27/18 12:47 08/27/18 12:47 08/27/18 12:47 08/27/18 12:47 General.:mild distress, awake, alert HEENT: Dry mucous membranes, extraocular muscles intact, no lymphadenopathy Neck: supple Cardiac: Sternotomy scar, Tachycardia, S1-S2 heard Lungs: Decreased AE bilaterally, occasional rhonchi Abdomen: soft , obese, non tender, non distended, bowel sounds positive right femoral CVC, garland catheter Extremities: no edema clubbing or cyanosis Skin: : multiple stage 2 wounds of feet - do not appear to be infected sacrum: large excoriation of lower back and sacral area with an approximately 5cm unstageable sacral wound. Foul smelling with necrotic tissue throughout wound. No drainage. No surrounding cellulitis. Moderate sensation in the area( p er documentation). Neurologic: non verbal, moves all extremities Results - Laboratory Findings CBC and BMP: 08/27/18 13:15 08/27/18 13:15 PT/INR, D-dimer PT 16.8 Sec. (12.2-14.9) H 08/28/18 04:16 INR 1.32 (0.87-1.13) H 08/28/18 04:16 Abnormal lab findings: Abnormal Labs 08/27/18 08/27/18 08/27/18 00:15 13:15 13:15 WBC 15.2 H RBC 3.34 L Hgb 9.1 L Hct 29.2 L MCH 27 L RDW 19.3 H Lymph % (Auto) 12.2 L Seg Neutrophils % 81.1 H Seg Neutrophils # 12.4 H PT 16.4 H INR 1.28 H APTT 37.8 H Sodium Chloride BUN Glucose Lactic Acid Calcium Total Creatine Kinase Albumin Urine WBC (Auto) > 182.0 H 08/27/18 08/27/18 08/28/18 13:15 15:18 04:16 WBC RBC Hgb Hct MCH RDW Lymph % (Auto) Seg Neutrophils % Seg Neutrophils # PT 16.8 H INR 1.32 H APTT Sodium 147 H Chloride 112.3 H BUN 33 H Glucose 121 H Lactic Acid 2.40 H* Calcium 8.3 L Total Creatine Kinase 242 H Albumin 2.4 L Urine WBC (Auto) - Diagnostic Findings Chest x-ray: image reviewed (Bilateral perihilar infitrates, Sternotomy wires, no effusions) Assessment and Plan -Severe sepsis with septic shock -Sacral decubitius ulcer, infected POA -Lactic acidosis -Hyperglycemia -Hypernatremia -Acute on chronic encephalopathy( toxic, metabolic) -h/o CAD, unknown EF -Perihilar infiltrates on CXR -Anemia -History of PE, subtherapeutic INR -Admit ICU -Wean vasopressor support for MAP>65 -Continue broad spectrum antibiotics (Aztreonam, Vancomycin) ,follow cultures -De-escalate antibiotic therapy based on LILIANA and cultures reports -Garland catheter for accurate intake and output monitoring in this critically ill patient on vasopressor support in the setting of severe sepsis and septic shock -Re-assess need for garland catheter in the next 24 hours -Will discontinue femoral CVC in the next 24 hours and assess need for ongoing CVC access -PT/OT to evaluate -Nutritional consult for malnutrition -Aspiration precautions, place a small bowel feeding tube for nutritional support and free water administration if she fails swallow evaluation -Accuchecks with glycemic control. Target glucose 140-180 mg/dL -Therapeutic anticoagulation with lovenox. Once sacral debridement is done, bridge to coumadin with goal INR 2-3 for history of PE. -Mobility program for pressure ulcer prevention -Wound care, surgery plans for debridement once she is hemodynamically normal -Echocardiogram to assess LVEF especially in the setting of CXR findings suggestive of pulmonary edema FULL CODE CONDITION: CRITICAL PROGNOSIS: GUARDED The high probability of a clinically significant, sudden or life-threatening deterioration of the [respiratory, cardiovascular] system(s) required my full and direct attention, intervention and personal management. The aggregate critical care time was [75] minutes without overlap. Time includes spent on; [x] Data Review and interpretation [x] Patient assessment and monitoring of vital signs [x] Documentation [x] Medication orders and management
--- NOTE | 2018-08-28 13:35 | Event Note ---
Date: 08/28/18 Chart reviewed. Patient with UTI, sepsis on pressors, sacral wound. Will plan on bedside debridement when patient is more stable and able to be weaned from pressors. Until then, may be managed with BID dressing changes with dakmarcela per RN and antibiotics. I spoke with her sister Ms. Steinberg (POA) who is agreeable to bedside debridement but does not want anesthesia at this time. I will call her again when the patient is stable and obtain consent, hopefully within the next 24-48 hrs.
[2018-08-28] MEDS: NACL 0.45% 1000 ML 1,000 ML IV SCH (14:23)
[2018-08-29] MEDS: LEVOPHED DRIP 4 MG/NS 250 ML 4 MG/250 ML BAG IV SCH ×2 (01:39→23:53)
[2018-08-29] MEDS ORDERED: VANCOMYCIN PHARMACY TO DOSE IV SCH (01:46)
[2018-08-29] MEDS: NACL 0.9% IV SCH ×2 (02:53→12:41)
[2018-08-29] MEDS: AZACTAM IV SCH ×2 (02:53→12:41)
[2018-08-29] MEDS: VANCOMYCIN/NS 1 GM/250 ML 1 GM/250 ML BAG IV SCH ×2 (02:55→13:03)
[2018-08-29 05:17] LABS: INR 1.21 (0.87-1.13)
[2018-08-29] MEDS: TYLENOL PO SCH (06:12)
[2018-08-29] MEDS: NACL 0.45% 1000 ML 1,000 ML IV SCH (08:20)
[2018-08-29] MEDS: LOVENOX SUB-Q SCH ×2 (09:28→22:22)
[2018-08-29] MEDS: FOLVITE PO SCH (09:28)
[2018-08-29] MEDS: PEPCID PO SCH ×2 (09:28→22:22)
[2018-08-29] MEDS: FEOSOL PO SCH ×2 (09:29→22:23)
[2018-08-29] MEDS ORDERED: TYLENOL PO PRN (10:00)
[2018-08-29] MEDS ORDERED: XYLOCAINE TOPICAL 4% TP ONE (11:00)
--- NOTE | 2018-08-29 11:36 | Progress Note ---
Assessment and Plan Severe sepsis with septic shock Sacral decubitius ulcer, infected POA Lactic acidosis Hyperglycemia Hypernatremia Acute on chronic encephalopathy( toxic, metabolic) h/o CAD, unknown EF Perihilar infiltrates on CXR Anemia History of PE, subtherapeutic INR - Bolus 500 mls IVNS and 25 gms of 25% Albumin - continue to Wean vasopressor support for MAP>65 - Continue broad spectrum antibiotics (Aztreonam, Vancomycin) - De-escalate antibiotic therapy based on LILIANA and cultures reports - Garland catheter for accurate intake and output monitoring in this critically ill patient on vasopressor support in the setting of severe sepsis and septic shock - Re-assess need for garland catheter in the next 24 hours - Will discontinue femoral CVC in the next 24 hours and assess need for ongoing CVC access - PT/OT to evaluate - Nutritional consult for malnutrition - tolerating oral meals well - continue accuchecks with glycemic control for target glucose 140-180 mg/dL - continue anticoagulation for target INR 2.0 to 3.0 - repeat CBC in am re: bleeding post debridement - continue mobility program for pressure ulcer prevention - continue wound care per RN, WCT, surgeon - follow 2D ECHO ... re-evaluate in am & prn FULL CODE CONDITION: CRITICAL PROGNOSIS: GUARDED The high probability of a clinically significant, sudden or life-threatening deterioration of the [respiratory, cardiovascular] system(s) required my full and direct attention, intervention and personal management. The aggregate critical care time was [33] minutes without overlap. Time includes spent on; [x] Data Review and interpretation [x] Patient assessment and monitoring of vital signs [x] Documentation [x] Medication orders and management Subjective Date of service: 08/29/18 Principal diagnosis: Severe sepsis with septic shock; Sacral decubitus ulcer (infected POA) Interval history: Patient is seen today for: Severe sepsis with septic shock; Sacral decubitus ulcer, infected POA; Lactic acidosis; Hyperglycemia; Hypernatremia Seen and examined at bedside; 24hour events reviewed; nursing and respiratory care staff consulted; no adverse overnight events reported to me; remains on levophed drip at 4 mics/min; s/p sacral decubitus debridement by surgeon; no emesis or overt aspiration; no gross bleeding Objective Vital Signs - 12hr 08/29/18 08/29/18 08/29/18 00:00 00:04 01:24 Temperature 98.7 F 98.8 F Pulse Rate 78 78 Pulse Rate [ From Monitor] Respiratory 18 13 Rate Blood Pressure 109/63 Blood Pressure 118/65 [Right] O2 Sat by Pulse 100 100 100 Oximetry 08/29/18 08/29/18 08/29/18 01:30 01:40 01:50 Temperature Pulse Rate 79 81 73 Pulse Rate [ From Monitor] Respiratory 15 16 18 Rate Blood Pressure 109/63 109/63 Blood Pressure [Right] O2 Sat by Pulse 100 100 100 Oximetry 08/29/18 08/29/18 08/29/18 02:00 02:10 02:20 Temperature Pulse Rate 70 74 72 Pulse Rate [ From Monitor] Respiratory 17 16 17 Rate Blood Pressure 101/59 101/59 101/59 Blood Pressure [Right] O2 Sat by Pulse 100 100 100 Oximetry 08/29/18 08/29/18 08/29/18 02:30 02:40 02:50 Temperature Pulse Rate 80 75 76 Pulse Rate [ From Monitor] Respiratory 19 14 19 Rate Blood Pressure 101/59 93/66 93/66 Blood Pressure [Right] O2 Sat by Pulse 100 100 100 Oximetry 08/29/18 08/29/18 08/29/18 03:00 03:10 03:20 Temperature Pulse Rate 78 80 87 Pulse Rate [ From Monitor] Respiratory 16 14 15 Rate Blood Pressure 93/66 129/71 129/71 Blood Pressure [Right] O2 Sat by Pulse 100 100 100 Oximetry 08/29/18 08/29/18 08/29/18 03:30 03:37 03:40 Temperature 98.5 F Pulse Rate 74 82 Pulse Rate [ From Monitor] Respiratory 15 16 Rate Blood Pressure 129/71 130/67 Blood Pressure [Right] O2 Sat by Pulse 100 100 Oximetry 08/29/18 08/29/18 08/29/18 03:50 04:00 04:10 Temperature Pulse Rate 77 80 79 Pulse Rate [ From Monitor] Respiratory 12 13 16 Rate Blood Pressure 130/67 130/67 123/74 Blood Pressure [Right] O2 Sat by Pulse 100 100 100 Oximetry 08/29/18 08/29/18 08/29/18 04:20 04:30 04:40 Temperature Pulse Rate 79 78 78 Pulse Rate [ From Monitor] Respiratory 13 15 11 L Rate Blood Pressure 123/74 106/72 106/72 Blood Pressure [Right] O2 Sat by Pulse 100 100 100 Oximetry 08/29/18 08/29/18 08/29/18 04:50 05:00 05:10 Temperature Pulse Rate 81 94 H 96 H Pulse Rate [ From Monitor] Respiratory 17 14 14 Rate Blood Pressure 123/74 109/82 109/82 Blood Pressure [Right] O2 Sat by Pulse 100 95 100 Oximetry 08/29/18 08/29/18 08/29/18 05:20 05:30 05:40 Temperature Pulse Rate 75 82 82 Pulse Rate [ From Monitor] Respiratory 12 15 13 Rate Blood Pressure 109/82 120/84 120/84 Blood Pressure [Right] O2 Sat by Pulse 100 100 100 Oximetry 08/29/18 08/29/18 08/29/18 05:50 06:00 06:10 Temperature Pulse Rate 80 70 77 Pulse Rate [ From Monitor] Respiratory 11 L 20 18 Rate Blood Pressure 120/84 120/84 139/69 Blood Pressure [Right] O2 Sat by Pulse 100 100 100 Oximetry 08/29/18 08/29/18 08/29/18 06:20 06:30 06:40 Temperature Pulse Rate 79 80 78 Pulse Rate [ From Monitor] Respiratory 16 17 16 Rate Blood Pressure 139/69 139/69 85/42 Blood Pressure [Right] O2 Sat by Pulse 100 100 100 Oximetry 08/29/18 08/29/18 08/29/18 06:50 07:00 07:10 Temperature Pulse Rate 76 77 77 Pulse Rate [ From Monitor] Respiratory 19 19 20 Rate Blood Pressure 85/42 93/52 93/52 Blood Pressure [Right] O2 Sat by Pulse 100 100 Oximetry 08/29/18 08/29/18 08/29/18 07:20 07:30 07:40 Temperature Pulse Rate 79 90 85 Pulse Rate [ From Monitor] Respiratory 18 14 14 Rate Blood Pressure 93/52 98/65 98/65 Blood Pressure [Right] O2 Sat by Pulse 100 100 100 Oximetry 08/29/18 08/29/18 07:50 08:00 Temperature 98.3 F Pulse Rate 83 87 Pulse Rate [ 87 From Monitor] Respiratory 15 10 L Rate Blood Pressure 98/65 116/68 Blood Pressure [Right] O2 Sat by Pulse 100 100 Oximetry Constitutional: appears uncomfortable, other (middle aged AAF with downs syndrome fascies and mildly increased respiratory effort) Eyes: non-icteric ENT: oropharynx moist Neck: supple, no lymphadenopathy, no JVD Effort: mildly labored Ascultation: Bilateral: diminished breath sounds, rhonchi Percussion: Bilateral: not dull Cardiovascular: regular rate and rhythm Gastrointestinal: normoactive bowel sounds, soft, non-tender, non-distended Integumentary: decubitus ulcer Extremities: no cyanosis, edema, other (contracted) Neurologic: non-focal exam (grossly), pupils equal and round, unable to assess (otherwise) Psychiatric: anxious, other CBC and BMP: 08/27/18 13:15 08/27/18 13:15 ABG, PT/INR, D-dimer: PT/INR, D-dimer PT 15.7 Sec. (12.2-14.9) H 08/29/18 04:55 INR 1.21 (0.87-1.13) H 08/29/18 04:55 Abnormal lab findings: Abnormal Labs 08/27/18 08/27/18 08/27/18 00:15 13:15 13:15 WBC 15.2 H RBC 3.34 L Hgb 9.1 L Hct 29.2 L MCH 27 L RDW 19.3 H Lymph % (Auto) 12.2 L Seg Neutrophils % 81.1 H Seg Neutrophils # 12.4 H PT 16.4 H INR 1.28 H APTT 37.8 H Sodium Chloride BUN Glucose POC Glucose Lactic Acid Calcium Total Creatine Kinase Albumin Urine WBC (Auto) > 182.0 H 08/27/18 08/27/18 08/28/18 13:15 15:18 04:16 WBC RBC Hgb Hct MCH RDW Lymph % (Auto) Seg Neutrophils % Seg Neutrophils # PT 16.8 H INR 1.32 H APTT Sodium 147 H Chloride 112.3 H BUN 33 H Glucose 121 H POC Glucose Lactic Acid 2.40 H* Calcium 8.3 L Total Creatine Kinase 242 H Albumin 2.4 L Urine WBC (Auto) 08/29/18 08/29/18 08/29/18 03:23 04:55 05:56 WBC RBC Hgb Hct MCH RDW Lymph % (Auto) Seg Neutrophils % Seg Neutrophils # PT 15.7 H INR 1.21 H APTT Sodium Chloride BUN Glucose POC Glucose 141 H 118 H Lactic Acid Calcium Total Creatine Kinase Albumin Urine WBC (Auto) 08/29/18 10:14 WBC RBC Hgb Hct MCH RDW Lymph % (Auto) Seg Neutrophils % Seg Neutrophils # PT INR APTT Sodium Chloride BUN Glucose POC Glucose 171 H Lactic Acid Calcium Total Creatine Kinase Albumin Urine WBC (Auto) Chest x-ray: image reviewed (mild increased interstitial edema pattern) Allied health notes reviewed: nursing
--- NOTE | 2018-08-29 12:44 | Progress Note ---
Assessment and Plan Assessment and plan: Unresponsive History of present illness: 48 YO Female [facility] Resident with Downs Syndrome, Dementia, Debility, Sacral Decubitus Ulcer, HTN, GERD, Spinal Stenosis, Depression, Paraplegia presents to ED for evaluation. Pt is stuporous and unable to provide history. Pt history taken from ED staff as well as SNF staff. As per staff, the patient was found to have foul smelling discharge in the area of her sacral decubitus ulcer, as well as fever to 101.2 and low blood pressure. EMS notified and upon arrival the patient was found to be in distress with systolic blood pressure in the 80's. Pt transported to [facility] for further care and evaluation. Pt seen and evaluated in ED and found to have Sepsis, Infected Sacral Decubitus Ulcer and Encephalopathy. Past History Past Medical History: hx of pulmonary embolism, other (downs syndrome, GERD, dementia) DX Sepsis/ Infected decubitus ulcer POA septic shock Bilat feet ulcers POA- not infected septic shock acute metabolic Encephalopathy hx of PE Plan wound care, empiric abx, case dw jessie [facility] to wounds, planned for surgical debridement of sacral ulcer cont ivf, on iv pressors ID consult appreciated on lovenox, will bridge to warfarin after surgical debridement dvt ppx; fully anticoagulated CCT 33 minutes History Interval history: Review of systems Constitutional: No fevers, no malaise, no joint pains CVS: No chest pain, no orthopnea, no dyspnea on exertion, no pedal edema GI: No abdominal pain, no diarrhea, no vomiting, no constipation Respiratory: No shortness of breath, no wheezing, no coughing Hospitalist Physical - Physical exam Narrative exam: General.:mild distress HEENT: Moist mucous membranes, extraocular muscles intact, no lymphadenopathy Neck: supple Cardiac: S1-S2 heard Lungs: clear to auscultation bilaterally Abdomen: soft , nontender, nondistended, bowel sounds positive Extremities: no edema clubbing or cyanosis Skin: : multiple stage 2 wounds of feet - do not appear to be infected sacrum: large excoriation of lower back and sacral area with an approximately 5cm unstageable sacral wound. Foul smelling with necrotic tissue throughout woun d. No drainage. No surrounding cellulitis. Moderate sensation in the area. Neurologic: non verbal, moves all extremities Psych: calm - Constitutional Vitals: Temp Pulse Resp BP Pulse Ox 98.3 F 87 10 L 116/68 100 08/29/18 08:00 08/29/18 08:00 08/29/18 08:00 08/29/18 08:00 08/29/18 08:00 General appearance: Present: mild distress - Additional findings Additional findings: Results - Labs CBC & Chem 7: 08/30/18 13:53 08/30/18 Unknown Labs: Laboratory Last Values WBC 15.2 K/mm3 (4.5-11.0) H 08/27/18 13:15 RBC 3.34 M/mm3 (3.65-5.03) L 08/27/18 13:15 Hgb 9.1 gm/dl (10.1-14.3) L 08/27/18 13:15 Hct 29.2 % (30.3-42.9) L 08/27/18 13:15 MCV 87 fl (79-97) 08/27/18 13:15 MCH 27 pg (28-32) L 08/27/18 13:15 MCHC 31 % (30-34) 08/27/18 13:15 RDW 19.3 % (13.2-15.2) H 08/27/18 13:15 Plt Count 438 K/mm3 (140-440) 08/27/18 13:15 Lymph % (Auto) 12.2 % (13.4-35.0) L 08/27/18 13:15 [place] % (Auto) 5.5 % (0.0-7.3) 08/27/18 13:15 Eos % (Auto) 0.3 % (0.0-4.3) 08/27/18 13:15 Baso % (Auto) 0.9 % (0.0-1.8) 08/27/18 13:15 Lymph # 1.9 K/mm3 (1.2-5.4) 08/27/18 13:15 [place] # 0.8 K/mm3 (0.0-0.8) 08/27/18 13:15 Eos # 0.0 K/mm3 (0.0-0.4) 08/27/18 13:15 Baso # 0.1 K/mm3 (0.0-0.1) 08/27/18 13:15 Seg Neutrophils % 81.1 % (40.0-70.0) H 08/27/18 13:15 Seg Neutrophils # 12.4 K/mm3 (1.8-7.7) H 08/27/18 13:15 PT 15.7 Sec. (12.2-14.9) H 08/29/18 04:55 INR 1.21 (0.87-1.13) H 08/29/18 04:55 APTT 37.8 Sec. (24.2-36.6) H 08/27/18 13:15 Sodium 147 mmol/L (137-145) H 08/27/18 13:15 Potassium 4.4 mmol/L (3.6-5.0) 08/27/18 13:15 Chloride 112.3 mmol/L (98-107) H 08/27/18 13:15 Carbon Dioxide 22 mmol/L (22-30) 08/27/18 13:15 Anion Gap 17 mmol/L 08/27/18 13:15 BUN 33 mg/dL (7-17) H 08/27/18 13:15 Creatinine 1.1 mg/dL (0.7-1.2) 08/27/18 13:15 Estimated GFR > 60 ml/min 08/27/18 13:15 BUN/Creatinine Ratio 30 % 08/27/18 13:15 Glucose 121 mg/dL (65-100) H 08/27/18 13:15 POC Glucose 171 (70-105) H 08/29/18 10:14 Lactic Acid 1.40 mmol/L (0.7-2.0) 08/27/18 20:57 Calcium 8.3 mg/dL (8.4-10.2) L 08/27/18 13:15 Total Bilirubin 0.30 mg/dL (0.1-1.2) 08/27/18 13:15 AST 35 units/L (5-40) 08/27/18 13:15 ALT 35 units/L (7-56) 08/27/18 13:15 Alkaline Phosphatase 87 units/L (35-129) 08/27/18 13:15 Total Creatine Kinase 242 units/L (30-135) H 08/27/18 13:15 Total Protein 6.5 g/dL (6.3-8.2) 08/27/18 13:15 Albumin 2.4 g/dL (3.9-5) L 08/27/18 13:15 Albumin/Globulin Ratio 0.6 % 08/27/18 13:15 Urine Color Yellow (Yellow) 08/27/18 00:15 Urine Turbidity Cloudy (Clear) 08/27/18 00:15 Urine pH 5.0 (5.0-7.0) 08/27/18 00:15 Ur Specific [place] 1.010 (1.003-1.030) 08/27/18 00:15 Urine Protein 30 mg/dl mg/dL (Negative) 08/27/18 00:15 Urine Glucose (UA) Neg mg/dL (Negative) 08/27/18 00:15 Urine Ketones Neg mg/dL (Negative) 08/27/18 00:15 Urine Blood Mod (Negative) 08/27/18 00:15 Urine Nitrite Neg (Negative) 08/27/18 00:15 Urine Bilirubin Neg (Negative) 08/27/18 00:15 Urine Urobilinogen < 2.0 mg/dL (<2.0) 08/27/18 00:15 Ur Leukocyte Esterase Lg (Negative) 08/27/18 00:15 Urine WBC (Auto) > 182.0 /HPF (0.0-6.0) H 08/27/18 00:15 Urine RBC (Auto) 37.0 /HPF (0.0-6.0) 08/27/18 00:15 Urine Bacteria (Auto) 1+ /HPF (Negative) 08/27/18 00:15 Urine WBC Clumps 3+ /HPF 08/27/18 00:15 Urine Mucus Few /HPF 08/27/18 00:15 Blood Type A POSITIVE 08/27/18 13: Antibody Screen Negative 08/27/18 13:15
[2018-08-29] MEDS ORDERED: NACL 0.9% 500 ML 500 ML IV SCH (13:00)
--- NOTE | 2018-08-29 13:00 | Procedure Note ---
Date of procedure: 08/29/18 Pre-op diagnosis: infected sacral wound Post-op diagnosis: same Procedure: excisional debridement of infected sacral wound Findings: Consent obtained from the patient's sister/POA and timeout performed. 4% topical lidocaine was applied to the wound for approximately 10 minutes. The patient was positioned in a left lateral decubitus position. An excisional debridement was performed of all necrotic skin and subcutaneous tissue using a forcep, scalpel. There was pinpoint bleeding from the subcutaneous tissue which was controlled with pressure. Cultures were obtained. The wound did extend down to the bone, making this a stage IV sacral wound. Once all of the necrotic tissue was debrided, the wound was cleansed and packed with Dakin's moistened Kerlix (1 piece). This was covered with a sacral foam dressing. Predebridement measurements: 5 cm (l) x 5cm (w) x 5 cm (d) Post-debridement measurements: 6 cm (l) x 5cm (w) x 5.5 cm (d) Patient tolerated the procedure well, all sharps are disposed appropriately. The patient was in stable condition end of the procedure. Will plan to place wound vac tomorrow. Discussed with cyanide case hardener Anesthesia: local Surgeon: MAURIZIO FAM Estimated blood loss: minimal Pathology: list (wound culture) Specimen disposition: to lab Condition: stable Disposition: ICU
[2018-08-29] MEDS: SODIUM CHLORIDE FLUSH SYRINGE 10 ML IV SCH (13:04)
[2018-08-29] MEDS: AZACTAM/NS 2 GM/100 ML 2 GM/100 ML VIAL IV SCH ×2 (14:00→22:48)
--- NOTE | 2018-08-29 15:12 | Consultation ---
History of Present Illness - Reason for Consult Consult date: 08/29/18 sepsis, infected sacral decubitus Requesting physician: SHEY GUAMAN - History of Present Illness The patient is a 48-year-old female who is a sn[facility] resident with Down syndrome, dementia, debility, sacral decubitus ulcer, spinal stenosis, paraplegia was brought to the emergency room on 08/27/2018 with fever and altered mental status. She was noted to have some foul-smelling drainage from he r sacral decubitus ulcer and a fever of 101.2F with hypotension. Was admitted to the hospital, given IV fluids, started on empiric antibiotics due to concerns for sepsis. Patient was evaluated by general surgery who performed an excisional debridement of the infected sacral wound on 08/29/2018. Intraoperatively, as per the operative note, the wound was debrided all the way down to the bone. She is currently in ICU, on pressors which were just weaned off earlier today. Has indwelling Garland catheter which was inserted in the emergency room for discussion with the nurse. Patient is nonverbal at baseline, able to provide history. Review of Systems: Cannot be obtained due to patient's mental status. Past History Past Medical History: pulmonary embolism, other (downs syndrome, GERD, dementia) Past Surgical History: CABG Social history: single, other (lives in snf) Family history: no significant family history Medications and Allergies Allergies Allergy/AdvReac Type Severity Reaction Status Date / Time lisinopril Allergy Unknown Verified 09/07/17 14:53 Penicillins Allergy Unknown Verified 09/07/17 14:53 Home Medications Medication Instructions Recorded Confirmed Last Taken Type Acetaminophen [Non-Aspirin] 650 mg PO Q8H PRN 09/07/17 08/27/18 Unknown History Docusate Sodium [Colace CAP] 100 mg PO BID PRN 09/07/17 08/27/18 Unknown History Doxycycline Hyclate [Doxycycline 100 mg PO BID 09/07/17 08/27/18 Unknown History Hyclate TAB] Famotidine [Pepcid] 20 mg PO BID 09/07/17 08/27/18 Unknown History Ketoconazole 2% [Nizoral] 1 applicatio TP DAILY 09/07/17 08/27/18 Unknown History Vit D3/Folic Acid/B2/B6/B12 1 each PO DAILY 09/07/17 08/27/18 Unknown History [Folgard Tablet] guaiFENesin DM [Robitussin Dm] 10 ml PO QID PRN 09/07/17 08/27/18 Unknown History Multivitamin Tab W-MINERAL 1 each PO QD 08/27/18 08/27/18 Unknown History [Multiple Vitamin/Mineral (Theragran M)] Active Meds: Active Medications Acetaminophen (Tylenol) 650 mg PO Q4H PRN PRN Reason: Pain, Mild (1-3) Docusate Sodium (Colace) 100 mg PO BID PRN PRN Reason: Constipation Donepezil HCl (Aricept) 5 mg PO HS [facility] Last Admin: 08/27/18 22:53 Dose: Not Given Documented by: Enoxaparin Sodium (Lovenox) 70 mg 1 mg/kg (70 mg) SUB-Q Q12HR [facility] Last Admin: 08/29/18 09:28 Dose: 70 mg Documented by: Famotidine (Pepcid) 20 mg PO BID [facility] Last Admin: 08/29/18 09:28 Dose: 20 mg Documented by: Ferrous Sulfate (Feosol) 325 mg PO BID [facility] Last Admin: 08/29/18 09:29 Dose: 325 mg Documented by: Folic Acid (Folvite) 1 mg PO DAILY [facility] Last Admin: 08/29/18 09:28 Dose: 1 mg Documented by: Guaifenesin (Guaifenesin Dm Syrup) 10 ml PO TID [facility] Last Admin: 08/29/18 13:03 Dose: 10 ml Documented by: Sodium Chloride (Nacl 0.45% 1000 Ml) 1,000 mls @ 125 mls/hr IV DIRECT [facility] Last Admin: 08/29/18 08:20 Dose: 125 mls/hr Documented by: Norepinephrine (Levophed Drip 4 Mg/Ns 250 Ml) 4 mg in 250 mls @ 7.5 mls/hr IV TITR [facility]; Protocol Last Titration: 08/29/18 13:06 Dose: 0 mcg/min, 0 mls/hr Documented by: Vancomycin HCl (Vancomycin/Ns 1 Gm/250 Ml) 1 gm in 250 mls @ 250 mls/hr IV Q12H [facility] Last Admin: 08/29/18 13:03 Dose: 250 mls/hr Documented by: Sodium Chloride (Nacl 0.9% 500 Ml) 500 mls @ 999 mls/hr IV ONCE [facility] Last Admin: 08/29/18 12:42 Dose: 999 mls/hr Documented by: Aztreonam (Azactam/Ns 2 Gm/100 Ml) 2 gm in 100 mls @ 100 mls/hr IV Q8HR YOSEPH; Protocol Metronidazole (Flagyl 500 Mg/100 Ml) 500 mg in 100 mls @ 100 mls/hr IV Q8HR YOSEPH; Protocol Ketoconazole (Nizoral) 1 applic TP DAILY [facility] Last Admin: 08/28/18 10:00 Dose: Not Given Documented by: Morphine Sulfate (Morphine) 2 mg IV Q4H PRN PRN Reason: Pain, Moderate (4-6) Sodium Chloride (Sodium Chloride Flush Syringe 10 Ml) 10 ml IV BID [facility] Last Admin: 08/29/18 13:04 Dose: 10 ml Documented by: Sodium Chloride (Sodium Chloride Flush Syringe 10 Ml) 10 ml IV PRN PRN PRN Reason: LINE FLUSH Physical Examination - Physical Exam Narrative exam: Physical Exam: Constitutional: awake, confused. Head, Ears, Nose: Normocephalic, atraumatic. External ears, nose normal Eyes: Conjunctivae/corneas clear. No icterus. No ptosis. Neck: Supple, no meningeal signs Oral: unable to examine Cardiovascular: S1, S2 normal. Respiratory: Good air entry, clear to auscultation bilaterally GI: Soft, non-tender; bowel sounds normal. No peritoneal signs Musculoskeletal: contractures +, no pedal edema. Sacral wound +. garland +, femor al CVL + Skin: No rash or abscess Hem/Lymphatic: No palpable cervical or supraclavicular nodes. No lymphangitis Psych: no agitation Neurological: Awake, alert, non verbal. - Constitutional Vitals: Vital Signs Temp Pulse Resp BP Pulse Ox 98.3 F 87 10 L 116/68 100 08/29/18 08:00 08/29/18 08:00 08/29/18 08:00 08/29/18 08:00 08/29/18 08:00 Temperature -Last 24 Hours Temperature 98.3 F Temperature 98.5 F Temperature 98.8 F Temperature 98.7 F Results - Labs CBC & Chem 7: 08/27/18 13:15 08/27/18 13:15 Labs: Abnormal lab results 01/08/29/18 08/29/18 Range/Units 03:23 04:55 05:56 PT 15.7 H (12.2-14.9) Sec. INR 1.21 H (0.87-1.13) POC Glucose 141 H 118 H (70-105) 08/29/18 08/29/18 Range/Units 10:14 13:56 PT (12.2-14.9) Sec. INR (0.87-1.13) POC Glucose 171 H 176 H (70-105) - Imaging and Cardiology Chest x-ray: report reviewed, image reviewed (did not show any obvious pneumonia.) CT scan - pelvis: report reviewed, image reviewed (showed sacral cellulitis, right hip effusion. ) Assessment and Plan Cultures: 09/13/2017 sacral wound culture: Gram-negative rods 08/27/2018 urine culture: No growth at 24 hours 08/27/2018 blood culture: No growth at 48 hours A/P: 48-year-old female who is a snf resident with Down syndrome, dementia, debility, sacral decubitus ulcer, spinal stenosis, paraplegia, admitted with: #1 Septic shock: Likely secondary to infected sacral decubitus ulcer, stage IV and possible UTI: Status post debridement which was all the way down to the bone on 08/29/2018 by general surgery. Expect this to be polymicrobial, recommend treating with IV aztreonam, vancomycin and Flagyl. #2 UTI: UA on admission showed significant pyuria. Patient cannot provide any history. Urine culture so far with no growth. Continue IV antibiotics. #3 Acute encephalopathy: On background of Down syndrome and dementia. #4 penicillin allergy: Cannot clarify what kind of allergic reaction was due to the patient's mental status. Hence we'll treat with IV aztreonam. #5 Right hip effusion noted on CT: likely inflammatory. Watch for now. Recs: Increased aztreonam dose to 2 g every 8 hours IV Added IV Flagyl 500 mg every 8 hours Continue IV vancomycin Consider removal of femoral central line when feasible Will follow. Please call with questions. MD Stef [facility] C: [phone] O: [phone] F: [phone]
[2018-08-29] MEDS ORDERED: D50W (25GM) Syringe IV PRN (17:19)
[2018-08-29] MEDS: HumuLIN R SUB-Q SCH (17:40)
[2018-08-29] MEDS: FLAGYL 500 MG/100 ML 500 MG/100 ML BAG IV SCH ×2 (17:45→22:22)
[2018-08-29] MEDS: ARICEPT PO SCH (22:23)
[2018-08-30] MEDS: SODIUM CHLORIDE FLUSH SYRINGE 10 ML IV SCH ×3 (02:17→22:18)
[2018-08-30] MEDS: VANCOMYCIN/NS 1 GM/250 ML 1 GM/250 ML BAG IV SCH (02:17)
[2018-08-30] MEDS: LEVOPHED DRIP 4 MG/NS 250 ML 4 MG/250 ML BAG IV SCH ×2 (02:25→06:20)
[2018-08-30] MEDS: NACL 0.45% 1000 ML 1,000 ML IV SCH ×3 (02:25→20:22)
[2018-08-30] MEDS: FLAGYL 500 MG/100 ML 500 MG/100 ML BAG IV SCH ×3 (06:20→22:32)
[2018-08-30] MEDS: HumuLIN R SUB-Q SCH ×4 (06:24→18:30)
[2018-08-30 08:13] LABS: INR 15.43 (0.87-1.13)
[2018-08-30] MEDS: NIZORAL TP SCH (10:00)
[2018-08-30 10:16] LABS: INR 1.29 (0.87-1.13)
[2018-08-30] MEDS: LOVENOX SUB-Q SCH ×2 (10:18→22:18)
[2018-08-30] MEDS: FOLVITE PO SCH (10:18)
[2018-08-30] MEDS: PEPCID PO SCH ×2 (10:18→22:17)
[2018-08-30] MEDS: FEOSOL PO SCH ×2 (10:18→22:18)
--- NOTE | 2018-08-30 11:50 | Progress Note ---
Assessment and Plan Cultures: 09/13/2017 sacral wound culture: Proteus mirabilis. 08/27/2018 urine culture: No growth at 24 hours 08/27/2018 blood culture: No growth at 48 hours 08/29/2018 Debridement culture: in process A/P: 48-year-old female who is a fdc resident with Down syndrome, dementia, debility, sacral decubitus ulcer, spinal stenosis, paraplegia, admitted with: #1 Septic shock: Likely secondary to infected sacral decubitus ulcer, stage IV and possible UTI: Status post debridement which was all the way down to the bone on 08/29/2018 by general surgery. Hence, eventually will plan to treat as acute osteomyelitis. #2 UTI: UA on admission showed significant pyuria. Patient cannot provide any history. Urine culture so far with no growth. Continue IV antibiotics. #3 Acute encephalopathy: On background of Down syndrome and dementia. #4 Penicillin allergy: Per review of her chart in detail, it seems patient received IV Ceftriaxone during a prior admission in 08/2017, hence Cephalosporins should be safe. #5 Right hip effusion noted on CT: likely inflammatory. Watch for now. Recs: discontinued Aztreonam and Vancomycin Started IV Ceftriaxone 2 gm q24 hrs Continue IV Flagyl 500 mg every 8 hours Consider removal of femoral central line when feasible Will follow. Please call with questions. Sly Wilson MD [facility] C: [phone] O: [phone] F: [phone] Subjective Date of service: 08/30/18 Interval history: Seems awake, no distress. No fever. Non verbal. Off pressors. Objective - Exam Narrative Exam: Physical Exam: Constitutional: awake, confused. Head, Ears, Nose: Normocephalic, atraumatic. External ears, nose normal Eyes: Conjunctivae/corneas clear. No icterus. No ptosis. Neck: Supple, no meningeal signs Oral: unable to examine Cardiovascular: S1, S2 normal. Respiratory: Good air entry, clear to auscultation bilaterally GI: Soft, non-tender; bowel sounds normal. No peritoneal signs Musculoskeletal: contractures +, no pedal edema. Sacral wound +. femoral CVL +. Skin: No rash. Hem/Lymphatic: No palpable cervical or supraclavicular nodes. No lymphangitis Psych: no agitation Neurological: Awake, alert, non verbal. - Constitutional Vitals: Vital Signs Temp Pulse Resp BP Pulse Ox 99.0 F 81 27 H 127/60 99 08/30/18 08:00 08/30/18 08:45 08/30/18 08:45 08/30/18 08:45 08/30/18 08:45 Temperature -Last 24 Hours Temperature 99.0 F Temperature 99.8 F Temperature 99.4 F Temperature 99.9 F Temperature 98.2 F Temperature 97.4 F - Labs CBC & Chem 7: 08/27/18 13:15 08/27/18 13:15 Labs: Abnormal lab results 08/29/18 08/29/18 08/29/18 Range/Units 13:56 17:36 21:38 PT (12.2-14.9) Sec. INR (0.87-1.13) POC Glucose 176 H 136 H 178 H (70-105) 08/30/18 08/30/18 08/30/18 Range/Units 00:31 05:31 07:09 PT 109.8 H (12.2-14.9) Sec. INR 15.43 H* (0.87-1.13) POC Glucose 184 H 184 H (70-105) 08/30/18 08/30/18 Range/Units 08:39 11:28 PT 16.5 H (12.2-14.9) Sec. INR 1.29 H (0.87-1.13) POC Glucose 174 H (70-105)
--- NOTE | 2018-08-30 13:15 | Progress Note ---
Assessment and Plan Severe sepsis with septic shock Sacral decubitius ulcer, infected POA Lactic acidosis Hyperglycemia Hypernatremia Acute on chronic encephalopathy( toxic, metabolic) h/o CAD, unknown EF Perihilar infiltrates on CXR Anemia History of PE, subtherapeutic INR - IVNS at 75 mls/hr X 2 liters - continue to Wean vasopressor support for MAP>65 - Continue broad spectrum antibiotics (Aztreonam, Vancomycin) - De-escalate antibiotic therapy based on LILIANA and cultures reports - continue garland catheter for accurate intake and output monitoring in this critically ill patient on vasopressor support in the setting of severe sepsis a nd septic shock (also s/p sacral ulcer debridement and ongoing wound care) - Re-assess need for garland catheter daily - Discontinued femoral CVL - PT/OT to evaluate - Nutritional consult for optimization of nutritional intake - has good appetite and is tolerating oral meals well - continue accuchecks with glycemic control for target glucose 140-180 mg/dL - continue anticoagulation for target INR 2.0 to 3.0 - continue mobility program for pressure ulcer prevention - continue wound care per RN, WCT, surgeon - follow 2D ECHO ... re-evaluate in am & prn FULL CODE CONDITION: CRITICAL PROGNOSIS: GUARDED The high probability of a clinically significant, sudden or life-threatening deterioration of the [respiratory, cardiovascular] system(s) required my full and direct attention, intervention and personal management. The aggregate critical care time was [31] minutes without overlap. Time includes spent on; [x] Data Review and interpretation [x] Patient assessment and monitoring of vital signs [x] Documentation [x] Medication orders and management Subjective Date of service: 08/30/18 Principal diagnosis: Severe sepsis with septic shock; Sacral decubitus ulcer (infected POA) Interval history: Patient is seen today for: Severe sepsis with septic shock; Sacral decubitus ulcer, infected POA; Lactic acidosis; Hyperglycemia; Hypernatremia Seen and examined at bedside; 24hour events reviewed; nursing and respiratory care staff consulted; no adverse overnight events reported to me; remains on levophed drip; no emesis or overt aspiration; no gross bleeding from debridement site; no new issues respiratory-[place]ol[place] Objective Vital Signs - 12hr 08/30/18 08/30/18 08/30/18 01:30 01:45 02:00 Temperature Pulse Rate 88 85 83 Pulse Rate [ From Monitor] Respiratory 27 H 22 23 Rate Blood Pressure 91/48 97/49 91/47 O2 Sat by Pulse 100 100 100 Oximetry 08/30/18 08/30/18 08/30/18 02:15 02:30 02:45 Temperature Pulse Rate 81 80 76 Pulse Rate [ From Monitor] Respiratory 23 24 22 Rate Blood Pressure 76/40 76/40 120/63 O2 Sat by Pulse 100 100 100 Oximetry 08/30/18 08/30/18 08/30/18 03:00 03:15 03:30 Temperature Pulse Rate 86 85 94 H Pulse Rate [ From Monitor] Respiratory 20 23 19 Rate Blood Pressure 125/63 119/48 100/52 O2 Sat by Pulse 100 100 100 Oximetry 08/30/18 08/30/18 08/30/18 03:45 03:57 04:00 Temperature 99.8 F H Pulse Rate 84 80 Pulse Rate [ 86 From Monitor] Respiratory 23 24 Rate Blood Pressure 86/41 89/39 O2 Sat by Pulse 100 100 Oximetry 08/30/18 08/30/18 08/30/18 04:15 04:30 04:45 Temperature Pulse Rate 90 78 81 Pulse Rate [ From Monitor] Respiratory 25 H 22 25 H Rate Blood Pressure 118/62 95/47 101/51 O2 Sat by Pulse 100 100 100 Oximetry 08/30/18 08/30/18 08/30/18 05:00 05:15 05:30 Temperature Pulse Rate 83 89 82 Pulse Rate [ From Monitor] Respiratory 20 26 H 22 Rate Blood Pressure 96/41 96/51 90/44 O2 Sat by Pulse 100 100 100 Oximetry 08/30/18 08/30/18 08/30/18 05:45 06:00 06:15 Temperature Pulse Rate 82 80 78 Pulse Rate [ From Monitor] Respiratory 17 23 24 Rate Blood Pressure 73/33 79/37 114/58 O2 Sat by Pulse 100 100 100 Oximetry 08/30/18 08/30/18 08/30/18 06:30 06:45 07:00 Temperature Pulse Rate 89 79 92 H Pulse Rate [ From Monitor] Respiratory 22 18 22 Rate Blood Pressure 120/62 120/62 101/57 O2 Sat by Pulse 100 100 100 Oximetry 08/30/18 08/30/18 08/30/18 07:15 07:30 07:45 Temperature Pulse Rate 78 84 72 Pulse Rate [ From Monitor] Respiratory 0 L 28 H 25 H Rate Blood Pressure 87/37 98/53 98/47 O2 Sat by Pulse 100 100 Oximetry 08/30/18 08/30/18 08/30/18 08:00 08:15 08:31 Temperature 99.0 F Pulse Rate 75 74 74 Pulse Rate [ 75 From Monitor] Respiratory 24 24 19 Rate Blood Pressure 117/59 116/51 111/62 O2 Sat by Pulse 100 100 100 Oximetry 08/30/18 08:45 Temperature Pulse Rate 81 Pulse Rate [ From Monitor] Respiratory 27 H Rate Blood Pressure 127/60 O2 Sat by Pulse 99 Oximetry Constitutional: appears uncomfortable, other (middle aged AAF with downs syndrome fascies and mildly increased respiratory effort) Eyes: non-icteric ENT: oropharynx moist Neck: supple, no lymphadenopathy, no JVD Effort: mildly labored Ascultation: Bilateral: diminished breath sounds, rhonchi Percussion: Bilateral: not dull Cardiovascular: regular rate and rhythm Gastrointestinal: normoactive bowel sounds, soft, non-tender, non-distended Integumentary: decubitus ulcer Extremities: no cyanosis, edema, other (contracted) Neurologic: non-focal exam (grossly), pupils equal and round, unable to assess (otherwise) Psychiatric: anxious, other CBC and BMP: 09/04/18 05:57 09/04/18 05:57 ABG, PT/INR, D-dimer: PT/INR, D-dimer PT 16.5 Sec. (12.2-14.9) H 08/30/18 08:39 INR 1.29 (0.87-1.13) H 08/30/18 08:39 Abnormal lab findings: Abnormal Labs 08/27/18 08/27/18 08/27/18 00:15 13:15 13:15 WBC 15.2 H RBC 3.34 L Hgb 9.1 L Hct 29.2 L MCH 27 L RDW 19.3 H Lymph % (Auto) 12.2 L Seg Neutrophils % 81.1 H Seg Neutrophils # 12.4 H PT 16.4 H INR 1.28 H APTT 37.8 H Sodium Chloride BUN Glucose POC Glucose Lactic Acid Calcium Total Creatine Kinase Albumin Urine WBC (Auto) > 182.0 H 08/27/18 08/27/18 08/28/18 13:15 15:18 04:16 WBC RBC Hgb Hct MCH RDW Lymph % (Auto) Seg Neutrophils % Seg Neutrophils # PT 16.8 H INR 1.32 H APTT Sodium 147 H Chloride 112.3 H BUN 33 H Glucose 121 H POC Glucose Lactic Acid 2.40 H* Calcium 8.3 L Total Creatine Kinase 242 H Albumin 2.4 L Urine WBC (Auto) 08/29/18 08/29/18 08/29/18 03:23 04:55 05:56 WBC RBC Hgb Hct MCH RDW Lymph % (Auto) Seg Neutrophils % Seg Neutrophils # PT 15.7 H INR 1.21 H APTT Sodium Chloride BUN Glucose POC Glucose 141 H 118 H Lactic Acid Calcium Total Creatine Kinase Albumin Urine WBC (Auto) 08/29/18 08/29/18 08/29/18 10:14 13:56 17:36 WBC RBC Hgb Hct MCH RDW Lymph % (Auto) Seg Neutrophils % Seg Neutrophils # PT INR APTT Sodium Chloride BUN Glucose POC Glucose 171 H 176 H 136 H Lactic Acid Calcium Total Creatine Kinase Albumin Urine WBC (Auto) 08/29/18 08/30/18 08/30/18 21:38 00:31 05:31 WBC RBC Hgb Hct MCH RDW Lymph % (Auto) Seg Neutrophils % Seg Neutrophils # PT INR APTT Sodium Chloride BUN Glucose POC Glucose 178 H 184 H 184 H Lactic Acid Calcium Total Creatine Kinase Albumin Urine WBC (Auto) 08/30/18 08/30/18 08/30/18 07:09 08:39 11:28 WBC RBC Hgb Hct MCH RDW Lymph % (Auto) Seg Neutrophils % Seg Neutrophils # PT 109.8 H 16.5 H INR 15.43 H* 1.29 H APTT Sodium Chloride BUN Glucose POC Glucose 174 H Lactic Acid Calcium Total Creatine Kinase Albumin Urine WBC (Auto) Chest x-ray: image reviewed (hypoventilation; new PICC line with tip in distal SVC) Allied health notes reviewed: nursing
[2018-08-30 14:24] LABS: Basophils # (Auto) 0.1 K/mm3 (0.0-0.1); Basophils % (Auto) 0.5 % (0.0-1.8); Eosinophils # (Auto) 0.1 K/mm3 (0.0-0.4); Hematocrit 25.4 % (30.3-42.9); Hemoglobin 7.6 gm/dl (10.1-14.3); Lymphocytes # (Auto) 1.4 K/mm3 (1.2-5.4); Lymphocytes % (Auto) 12.7 % (13.4-35.0); Mean Corpuscular HGB Conc 30 % (30-34); Mean Corpuscular Volume 90 fl (79-97); Monocytes # (Auto) 0.4 K/mm3 (0.0-0.8); Monocytes % (Auto) 3.3 % (0.0-7.3); Platelet Count 382 K/mm3 (140-440); Red Blood Count 2.81 M/mm3 (3.65-5.03); Red Cell Distribution Width 19.4 % (13.2-15.2)
[2018-08-30 14:39] LABS: BUN/Creatinine Ratio 17; Blood Urea Nitrogen 10 mg/dL (7-17); Hemolysis Index 0
[2018-08-30] MEDS: ROCEPHIN/NS 2 GM/100 ML 2 GM/100 ML BAG IV SCH (15:42)
[2018-08-30] MEDS: PROAMATINE PO SCH ×2 (15:42→22:18)
--- NOTE | 2018-08-30 15:43 | Progress Note ---
Assessment and Plan Assessment and plan: Unresponsive History of present illness: 48 YO Female Long Term Facility Resident with Downs Syndrome, Dementia, Debility, Sacral Decubitus Ulcer, HTN, GERD, Spinal Stenosis, Depression, Paraplegia presents to ED for evaluation. Pt is stuporous and unable to provide history. Pt history taken from ED staff as well as SNF staff. As per staff, the patient was found to have foul smelling discharge in the area of her sacral decubitus ulcer, as well as fever to 101.2 and low blood pressure. EMS notified and upon arrival the patient was found to be in distress with systolic blood pressure in the 80's. Pt transported to [facility] for further care and evaluation. Pt seen and evaluated in ED and found to have Sepsis, Infected Sacral Decubitus Ulcer and Encephalopathy. Past History Past Medical History: hx of pulmonary embolism, other (downs syndrome, GERD, dementia) DX Sepsis/ Infected decubitus ulcer POA septic shock Bilat feet ulcers POA- not infected septic shock acute metabolic Encephalopathy hx of PE Plan wound care, empiric abx, case dw LEILANI, jessie to wounds, sp excisional debridement of infected sacral wound 08/29/18 cont ivf, on iv pressors ID consult appreciated on lovenox, will bridge to warfarin after surgical debridement dvt ppx; fully anticoagulated CCT 33 minutes History Interval history: Review of systems Constitutional: No fevers, no malaise, no joint pains CVS: No chest pain, no orthopnea, no dyspnea on exertion, no pedal edema GI: No abdominal pain, no diarrhea, no vomiting, no constipation Respiratory: No shortness of breath, no wheezing, no coughing Hospitalist Physical - Physical exam Narrative exam: General.:mild distress HEENT: Moist mucous membranes, extraocular muscles intact, no lymphadenopathy Neck: supple Cardiac: S1-S2 heard Lungs: clear to auscultation bilaterally Abdomen: soft , nontender, nondistended, bowel sounds positive Extremities: no edema clubbing or cyanosis Skin: : multiple stage 2 wounds of feet - do not appear to be infected sacrum: large excoriation of lower back and sacral area with an approximately 5cm unstageable sacral wound. Foul smelling with necrotic tissue throughout wound. No drainage. No surrounding cellulitis. Moderate sensation in the area. Neurologic: non verbal, moves all extremities Psych: calm - Constitutional Vitals: Temp Pulse Resp BP Pulse Ox 99.0 F 81 27 H 127/60 99 08/30/18 08:00 08/30/18 08:45 08/30/18 08:45 08/30/18 08:45 08/30/18 08:45 General appearance: Present: mild distress Results - Labs CBC & Chem 7: 08/30/18 13:53 08/30/18 Unknown Labs: Laboratory Last Values WBC 11.3 K/mm3 (4.5-11.0) H 08/30/18 13:53 RBC 2.81 M/mm3 (3.65-5.03) L 08/30/18 13:53 Hgb 7.6 gm/dl (10.1-14.3) L 08/30/18 13:53 Hct 25.4 % (30.3-42.9) L 08/30/18 13:53 MCV 90 fl (79-97) 08/30/18 13:53 MCH 27 pg (28-32) L 08/30/18 13:53 MCHC 30 % (30-34) 08/30/18 13:53 RDW 19.4 % (13.2-15.2) H 08/30/18 13:53 Plt Count 382 K/mm3 (140-440) 08/30/18 13:53 Lymph % (Auto) 12.7 % (13.4-35.0) L 08/30/18 13:53 [place] % (Auto) 3.3 % (0.0-7.3) 08/30/18 13:53 Eos % (Auto) 1.0 % (0.0-4.3) 08/30/18 13:53 Baso % (Auto) 0.5 % (0.0-1.8) 08/30/18 13:53 Lymph # 1.4 K/mm3 (1.2-5.4) 08/30/18 13:53 [place] # 0.4 K/mm3 (0.0-0.8) 08/30/18 13:53 Eos # 0.1 K/mm3 (0.0-0.4) 08/30/18 13:53 Baso # 0.1 K/mm3 (0.0-0.1) 08/30/18 13:53 Seg Neutrophils % 82.5 % (40.0-70.0) H 08/30/18 13:53 Seg Neutrophils # 9.3 K/mm3 (1.8-7.7) H 08/30/18 13:53 PT 16.5 Sec. (12.2-14.9) H 08/30/18 08:39 INR 1.29 (0.87-1.13) H 08/30/18 08:39 APTT 37.8 Sec. (24.2-36.6) H 08/27/18 13:15 Sodium 143 mmol/L (137-145) 08/30/18 Unknown Potassium 3.6 mmol/L (3.6-5.0) 08/30/18 Unknown Chloride 112.2 mmol/L (98-107) H 08/30/18 Unknown Carbon Dioxide 22 mmol/L (22-30) 08/30/18 Unknown Anion Gap 12 mmol/L 08/30/18 Unknown BUN 10 mg/dL (7-17) 08/30/18 Unknown Creatinine 0.6 mg/dL (0.7-1.2) L 08/30/18 Unknown Estimated GFR > 60 ml/min 08/30/18 Unknown BUN/Creatinine Ratio 17 % 08/30/18 Unknown Glucose 137 mg/dL (65-100) H 08/30/18 Unknown POC Glucose 174 (70-105) H 08/30/18 11:28 Lactic Acid 1.40 mmol/L (0.7-2.0) 08/27/18 20:57 Calcium 8.0 mg/dL (8.4-10.2) L 08/30/18 Unknown Total Bilirubin 0.30 mg/dL (0.1-1.2) 08/27/18 13:15 AST 35 units/L (5-40) 08/27/18 13:15 ALT 35 units/L (7-56) 08/27/18 13:15 Alkaline Phosphatase 87 units/L (35-129) 08/27/18 13:15 Total Creatine Kinase 242 units/L (30-135) H 08/27/18 13:15 Total Protein 6.5 g/dL (6.3-8.2) 08/27/18 13:15 Albumin 2.4 g/dL (3.9-5) L 08/27/18 13:15 Albumin/Globulin Ratio 0.6 % 08/27/18 13:15 Urine Color Yellow (Yellow) 08/27/18 00:15 Urine Turbidity Cloudy (Clear) 08/27/18 00:15 Urine pH 5.0 (5.0-7.0) 08/27/18 00:15 Ur Specific [place] 1.010 (1.003-1.030) 08/27/18 00:15 Urine Protein 30 mg/dl mg/dL (Negative) 08/27/18 00:15 Urine Glucose (UA) Neg mg/dL (Negative) 08/27/18 00:15 Urine Ketones Neg mg/dL (Negative) 08/27/18 00:15 Urine Blood Mod (Negative) 08/27/18 00:15 Urine Nitrite Neg (Negative) 08/27/18 00:15 Urine Bilirubin Neg (Negative) 08/27/18 00:15 Urine Urobilinogen < 2.0 mg/dL (<2.0) 08/27/18 00:15 Ur Leukocyte Esterase Lg (Negative) 08/27/18 00:15 Urine WBC (Auto) > 182.0 /HPF (0.0-6.0) H 08/27/18 00:15 Urine RBC (Auto) 37.0 /HPF (0.0-6.0) 08/27/18 00:15 Urine Bacteria (Auto) 1+ /HPF (Negative) 08/27/18 00:15 Urine WBC Clumps 3+ /HPF 08/27/18 00:15 Urine Mucus Few /HPF 08/27/18 00:15 Vancomycin Trough 13.8 ug/mL (5.0-20.0) 08/30/18 13:53 Blood Type A POSITIVE 08/27/18 13:15 Antibody Screen Negative 08/27/18 13:15 Nutrition/Malnutrition Assess - Dietary Evaluation Nutrition/Malnutrition Findings: Nutrition Notes Start: 08/29/18 15:12 Freq: Status: Active Protocol: Document 08/29/18 15:12 JOHN (Rec: 08/29/18 15:48 JOHN [email or web address]) Co-Sign 08/29/18 15:12 NHALL Nutrition Notes Current Diagnosis Decubitus(Pressure Ulcer) Sepsis Other Pertinent Diagnosis Down syndrome, AMS, anemia, functional paraplegia, spinal stenosis Labs/Tests Na: 147 BUN: 33 Pertinent Medications Norepinephrine Height 4 ft 2 in Weight 69.7 kg [place] Body Weight (lbs) 50.0 BMI 43.2 Weight Status Morbidly Obese Subjective/Other Information MD consult for malnutrition. Observed pt. tray with only a few bites missing. Pt. cannot feed herself per RN. RN agreed pt. would benefit from ensure enlive for extra nutrition. FLAME DEGREASER note stated pt. would eat more of meals if her diet was downgraded to pureed with thin liquids. Burn Absent Trauma Absent Current % PO Negligible #1 Nutrition Diagnosis Inadequate oral intake Etiology Chewing difficulties As Evidenced by Signs and Symptoms Pt ate <25% of breakfast tray Is patient on ventilator? No Is Patient Ambulatory and/or Out of Bed No REE-([facility]-confined to bed) 1311.468 Calculation Used for Recommendations [facility] Additional Notes Pro: 57 g/day (2.5g/kg IBW) Fluid: 1 ml/kcal Nutrition Intervention Change Diet Order: Pureed diet with thin liquids Add Supplement/Snack (indicate name/kcal Ensure Enlive daily /protein ) Provides kCal: 350 Provides Protein (gm) 20 Goal #1 Meet at least 80% of energy and protein needs via PO and ONS intakes Anticipated Discharge Needs: Pureed Diet with ONS PRN Follow-Up By: 08/31/18 Additional Comments F/u: PO and ONS intake
--- NOTE | 2018-08-30 16:20 | XRay Report ---
FINAL REPORT EXAM: XR CHEST 1V AP HISTORY: picc placement. picc line was pulled back 5cm TECHNIQUE: Frontal portable view of the chest Comparison: Chest x-ray performed earlier today at 13:10 FINDINGS: The PICC line catheter has been pulled back with the tip now projected in the region of the superior vena cava. There continues to be hypoinflation with prominence of the interstitial markings in both lungs and pa tchy areas of pulmonary consolidation in both lungs similar in appearance to the previous study. The cardiac silhouette is enlarged similar in appearance to the previous study. The bony structures are not significantly changed in the interval. IMPRESSION: 1. Tip of PICC line catheter projected in the region of the superior vena cava. 2. Hypoinflation with bilateral interstitial and airspace process and enlarged cardiac silhouette whi ch may represent changes of CHF. An infectious process cannot entirely be excluded.
--- NOTE | 2018-08-30 16:24 | XRay Report ---
FINAL REPORT EXAM: XR CHEST 1V AP HISTORY: Right arm PICC placement TECHNIQUE: Frontal portable view of the chest Comparison: Chest x-ray performed later today at 15:35 and chest x-ray dated August 27, 2018 FINDINGS: There is bilateral hypoinflation. There is prominence of the interstitial markings in both lungs with areas of pulmonary consolidation in both lungs and possible small right pleural fluid collection. The cardiac silhouette is enlarged similar in appearance to the previous study. A right-sided PICC line is demonstrated with the tip projected in the region the right atrium. The bony structures are not significantly changed in the interval. IMPRESSION: 1. Right-sided PICC line with tip projected in the region the right atrium. On the subsequent study p erformed at 1535 today the catheter was pulled back with the tip subsequently projected in the region of the superior vena cava. 2. Bilateral interstitial and airspace process with possible small right pleural fluid collection and enlarged cardiac silhouette. This may represent changes of CHF. An infectious component cannot entir alicia be excluded.
[2018-08-30] MEDS ORDERED: COUMADIN PO ONE (20:39)
[2018-08-30] MEDS: ARICEPT PO SCH (22:17)
[2018-08-31] MEDS: HumuLIN R SUB-Q SCH ×3 (00:33→12:36)
[2018-08-31] MEDS: NACL 0.45% 1000 ML 1,000 ML IV SCH (05:27)
[2018-08-31] MEDS: PROAMATINE PO SCH ×3 (05:31→21:39)
[2018-08-31] MEDS: FLAGYL 500 MG/100 ML 500 MG/100 ML BAG IV SCH ×3 (05:31→21:37)
[2018-08-31 05:48] LABS: INR 1.23 (0.87-1.13)
--- NOTE | 2018-08-31 09:49 | Progress Note ---
Assessment and Plan -Severe sepsis with septic shock -Sacral decubitius ulcer, infected POA -Lactic acidosis -Hyperglycemia -Hypernatremia -Acute on chronic encephalopathy( toxic, metabolic) -h/o CAD, unknown EF -Perihilar infiltrates on CXR -Anemia -History of PE, subtherapeutic INR -Continue broad antibiotics to complete a total of 4 week course per discussions with ID -RUE PICC line -Aspiration precautions with modified diet -Accuchecks with glycemic control. Target glucose 140-180 mg/dL -Therapeutic anticoagulation -Mobility program for pressure ulcer prevention -Wound care, wound vac -Supportive care Subjective Date of service: 08/31/18 Principal diagnosis: Severe sepsis with septic shock; Sacral decubitus ulcer (infected POA) Interval history: Patient is seen today for: Severe sepsis with septic shock, pressure ulcer, encephaloapthy Seen and examined at bedside; 24-hour events reviewed; nursing and respiratory care staff consulted; no adverse overnight events reported to me; Off vasopressor support, tolerating diet. No fevers or chills.. Objective Vital Signs - 12hr 08/30/18 08/30/18 08/30/18 22:00 22:15 22:30 Temperature Pulse Rate 78 72 81 Respiratory 19 18 15 Rate Blood Pressure 110/55 116/59 110/53 O2 Sat by Pulse 100 100 100 Oximetry 08/30/18 08/30/18 08/30/18 22:45 23:00 23:15 Temperature Pulse Rate 66 75 73 Respiratory 19 20 21 Rate Blood Pressure 99/41 95/41 99/47 O2 Sat by Pulse 100 100 100 Oximetry 08/30/18 08/30/18 08/31/18 23:30 23:45 00:00 Temperature 97.9 F Pulse Rate 71 73 Respiratory 21 24 Rate Blood Pressure 106/48 106/48 89/45 O2 Sat by Pulse 100 100 Oximetry 08/31/18 08/31/18 08/31/18 00:15 01:00 02:00 Temperature Pulse Rate 72 75 69 Respiratory 19 12 20 Rate Blood Pressure 93/48 101/54 99/48 O2 Sat by Pulse 100 100 Oximetry 08/31/18 08/31/18 08/31/18 02:45 03:00 03:15 Temperature Pulse Rate 63 58 L 59 L Respiratory 21 20 24 Rate Blood Pressure 82/46 86/42 113/47 O2 Sat by Pulse 100 100 100 Oximetry 08/31/18 08/31/18 08/31/18 03:30 03:45 03:53 Temperature 97.7 F Pulse Rate 61 63 Respiratory 19 22 Rate Blood Pressure 147/58 144/54 O2 Sat by Pulse 100 100 Oximetry 08/31/18 08/31/18 08/31/18 04:00 04:01 04:15 Temperature Pulse Rate 73 71 73 Respiratory 20 18 Rate Blood Pressure 147/60 105/38 O2 Sat by Pulse 100 Oximetry 08/31/18 08/31/18 08/31/18 04:30 04:45 05:00 Temperature Pulse Rate 61 62 63 Respiratory 17 19 20 Rate Blood Pressure 102/45 103/55 100/49 O2 Sat by Pulse 100 100 100 Oximetry 08/31/18 08/31/18 08/31/18 05:15 05:30 05:45 Temperature Pulse Rate 70 76 79 Respiratory 18 16 22 Rate Blood Pressure 99/45 95/50 105/57 O2 Sat by Pulse 100 100 100 Oximetry 08/31/18 08/31/18 08/31/18 06:00 06:15 06:30 Temperature Pulse Rate 78 81 71 Respiratory 20 11 L 21 Rate Blood Pressure 113/62 118/62 102/43 O2 Sat by Pulse 99 100 100 Oximetry 08/31/18 08/31/18 08/31/18 06:45 07:00 07:01 Temperature 97.7 F Pulse Rate 60 60 Respiratory 18 18 Rate Blood Pressure 117/42 120/36 O2 Sat by Pulse 100 100 Oximetry 08/31/18 08:13 Temperature Pulse Rate Respiratory Rate Blood Pressure O2 Sat by Pulse 100 Oximetry Constitutional: appears uncomfortable, other (middle aged AAF with downs syndrome fascies and mildly increased respiratory effort) Eyes: non-icteric ENT: oropharynx moist Neck: supple, no lymphadenopathy, no JVD Effort: mildly labored Ascultation: Bilateral: diminished breath sounds, rhonchi Percussion: Bilateral: not dull Cardiovascular: regular rate and rhythm Gastrointestinal: normoactive bowel sounds, soft, non-tender, non-distended Integumentary: decubitus ulcer, other (left hip pressure ulcer with wound vac in place) Extremities: no cyanosis, edema, other (contracted) Neurologic: non-focal exam (grossly), pupils equal and round Psychiatric: anxious, other CBC and BMP: 09/03/18 06:16 09/03/18 08:02 ABG, PT/INR, D-dimer: PT/INR, D-dimer PT 15.9 Sec. (12.2-14.9) H 08/31/18 04:48 INR 1.23 (0.87-1.13) H 08/31/18 04:48 Abnormal lab findings: Abnormal Labs 08/27/18 08/27/18 08/27/18 00:15 13:15 13:15 WBC 15.2 H RBC 3.34 L Hgb 9.1 L Hct 29.2 L MCH 27 L RDW 19.3 H Lymph % (Auto) 12.2 L Seg Neutrophils % 81.1 H Seg Neutrophils # 12.4 H PT 16.4 H INR 1.28 H APTT 37.8 H Sodium Chloride BUN Creatinine Glucose POC Glucose Lactic Acid Calcium Total Creatine Kinase Albumin Urine WBC (Auto) > 182.0 H 08/27/18 08/27/18 08/28/18 13:15 15:18 04:16 WBC RBC Hgb Hct MCH RDW Lymph % (Auto) Seg Neutrophils % Seg Neutrophils # PT 16.8 H INR 1.32 H APTT Sodium 147 H Chloride 112.3 H BUN 33 H Creatinine Glucose 121 H POC Glucose Lactic Acid 2.40 H* Calcium 8.3 L Total Creatine Kinase 242 H Albumin 2.4 L Urine WBC (Auto) 08/29/18 08/29/18 08/29/18 03:23 04:55 05:56 WBC RBC Hgb Hct MCH RDW Lymph % (Auto) Seg Neutrophils % Seg Neutrophils # PT 15.7 H INR 1.21 H APTT Sodium Chloride BUN Creatinine Glucose POC Glucose 141 H 118 H Lactic Acid Calcium Total Creatine Kinase Albumin Urine WBC (Auto) 08/29/18 08/29/18 08/29/18 10:14 13:56 17:36 WBC RBC Hgb Hct MCH RDW Lymph % (Auto) Seg Neutrophils % Seg Neutrophils # PT INR APTT Sodium Chloride BUN Creatinine Glucose POC Glucose 171 H 176 H 136 H Lactic Acid Calcium Total Creatine Kinase Albumin Urine WBC (Auto) 08/29/18 08/30/18 08/30/18 21:38 00:31 05:31 WBC RBC Hgb Hct MCH RDW Lymph % (Auto) Seg Neutrophils % Seg Neutrophils # PT INR APTT Sodium Chloride BUN Creatinine Glucose POC Glucose 178 H 184 H 184 H Lactic Acid Calcium Total Creatine Kinase Albumin Urine WBC (Auto) 08/30/18 08/30/18 08/30/18 07:09 08:39 11:28 WBC RBC Hgb Hct MCH RDW Lymph % (Auto) Seg Neutrophils % Seg Neutrophils # PT 109.8 H 16.5 H INR 15.43 H* 1.29 H APTT Sodium Chloride BUN Creatinine Glucose POC Glucose 174 H Lactic Acid Calcium Total Creatine Kinase Albumin Urine WBC (Auto) 08/30/18 08/30/18 08/30/18 13:53 17:56 Unknown WBC 11.3 H RBC 2.81 L Hgb 7.6 L Hct 25.4 L MCH 27 L RDW 19.4 H Lymph % (Auto) 12.7 L Seg Neutrophils % 82.5 H Seg Neutrophils # 9.3 H PT INR APTT Sodium Chloride 112.2 H BUN Creatinine 0.6 L Glucose 137 H POC Glucose 126 H Lactic Acid Calcium 8.0 L Total Creatine Kinase Albumin Urine WBC (Auto) 08/31/18 08/31/18 00:33 04:48 WBC RBC Hgb Hct MCH RDW Lymph % (Auto) Seg Neutrophils % Seg Neutrophils # PT 15.9 H INR 1.23 H APTT Sodium Chloride BUN Creatinine Glucose POC Glucose 126 H Lactic Acid Calcium Total Creatine Kinase Albumin Urine WBC (Auto) Allied health notes reviewed: nursing
[2018-08-31] MEDS: FOLVITE PO SCH (09:52)
[2018-08-31] MEDS: FEOSOL PO SCH ×2 (09:52→21:39)
[2018-08-31] MEDS: LOVENOX SUB-Q SCH ×2 (09:53→21:38)
[2018-08-31] MEDS: ROCEPHIN/NS 2 GM/100 ML 2 GM/100 ML BAG IV SCH (10:12)
[2018-08-31] MEDS: SODIUM CHLORIDE FLUSH SYRINGE 10 ML IV SCH ×2 (10:13→21:37)
--- NOTE | 2018-08-31 10:50 | Progress Note ---
Assessment and Plan Cultures: 09/13/2017 sacral wound culture: Proteus mirabilis. 08/27/2018 urine culture: No growth 08/27/2018 blood culture: No growth 08/29/2018 Debridement culture: in process, no growth thus far A/P: 48-year-old female who is a alf resident with Down syndrome, dementia, debility, sacral decubitus ulcer, spinal stenosis, paraplegia, admitted with: #1 Septic shock: Likely secondary to infected sacral decubitus ulcer, stage IV and possible UTI: Status post debridement which was all the way down to the bone on 08/29/2018 by general surgery. Hence, eventually will plan to treat as acute osteomyelitis. #2 UTI: UA on admission showed significant pyuria. Patient cannot provide any history. Urine culture so far with no growth. Continue IV antibiotics. #3 Acute encephalopathy: On background of Down syndrome and dementia. #4 Penicillin allergy: Per review of her chart in detail, it seems patient received IV Ceftriaxone during a prior admission in 08/2017, hence Cephalosporins should be safe and she has been tolerating it well. #5 Right hip effusion noted on CT: likely inflammatory. Watch for now. Recs: Continue IV Ceftriaxone 2 gm q24 hrs Continue IV Flagyl 500 mg every 8 hours Will follow. Please call with questions. Sly Wilson MD [facility] C: [phone] O: [phone] F: [phone] Subjective Date of service: 08/31/18 Principal diagnosis: Severe sepsis with septic shock; Sacral decubitus ulcer (infected POA) Interval history: Off pressors. Had a new PICC line. Femoral CVL removed. Objective - Exam Narrative Exam: Physical Exam: Constitutional: awake, confused but no distress Head, Ears, Nose: Normocephalic, atraumatic. External ears, nose normal Eyes: Conjunctivae/corneas clear. No icterus. No ptosis. Neck: Supple, no meningeal signs Oral: unable to examine Cardiovascular: S1, S2 normal. Respiratory: Good air entry, clear to auscultation bilaterally GI: Soft, non-tender; bowel sounds normal. No peritoneal signs Musculoskeletal: contractures +, no pedal edema. Sacral wound + with dressing Skin: No rash. Hem/Lymphatic: No palpable cervical or supraclavicular nodes. No lymphangitis Psych: calm, not agitated Neurological: Awake, alert, non verbal. - Constitutional Vitals: Vital Signs Temp Pulse Resp BP Pulse Ox 97.7 F 60 18 120/36 100 08/31/18 07:00 08/31/18 07:01 08/31/18 07:01 08/31/18 07:01 08/31/18 08:13 Temperature -Last 24 Hours Temperature 97.7 F Temperature 97.7 F Temperature 97.9 F Temperature 97.5 F Temperature 98.9 F Temperature 98.8 F - Labs CBC & Chem 7: 08/30/18 13:53 08/30/18 Unknown Labs: Abnormal lab results 08/30/18 08/30/18 08/30/18 Range/Units 11:28 13:53 17:56 WBC 11.3 H (4.5-11.0) K/mm3 RBC 2.81 L (3.65-5.03) M/mm3 Hgb 7.6 L (10.1-14.3) gm/dl Hct 25.4 L (30.3-42.9) % MCH 27 L (28-32) pg RDW 19.4 H (13.2-15.2) % Lymph % (Auto) 12.7 L (13.4-35.0) % Seg Neutrophils % 82.5 H (40.0-70.0) % Seg Neutrophils # 9.3 H (1.8-7.7) K/mm3 PT (12.2-14.9) Sec. INR (0.87-1.13) Chloride (98-107) mmol/L Creatinine (0.7-1.2) mg/dL Glucose (65-100) mg/dL POC Glucose 174 H 126 H (70-105) Calcium (8.4-10.2) mg/dL 08/30/18 08/31/18 08/31/18 Range/Units Unknown 00:33 04:48 WBC (4.5-11.0) K/mm3 RBC (3.65-5.03) M/mm3 Hgb (10.1-14.3) gm/dl Hct (30.3-42.9) % MCH (28-32) pg RDW (13.2-15.2) % Lymph % (Auto) (13.4-35.0) % Seg Neutrophils % (40.0-70.0) % Seg Neutrophils # (1.8-7.7) K/mm3 PT 15.9 H (12.2-14.9) Sec. INR 1.23 H (0.87-1.13) Chloride 112.2 H (98-107) mmol/L Creatinine 0.6 L (0.7-1.2) mg/dL Glucose 137 H (65-100) mg/dL POC Glucose 126 H (70-105) Calcium 8.0 L (8.4-10.2) mg/dL
[2018-08-31] MEDS: NIZORAL TP SCH (13:20)
[2018-08-31] MEDS: PEPCID PO SCH ×2 (13:26→21:38)
--- NOTE | 2018-08-31 15:59 | Progress Note ---
Assessment and Plan Assessment and plan: Unresponsive History of present illness: 48 YO Female Nursing Home Facility Resident with Downs Syndrome, Dementia, Debility, Sacral Decubitus Ulcer, HTN, GERD, Spinal Stenosis, Depression, Paraplegia presents to ED for evaluation. Pt is stuporous and unable to provide history. Pt history taken from ED staff as well as SNF staff. As per staff, the patient was found to have foul smelling discharge in the area of her sacral decubitus ulcer, as well as fever to 101.2 and low blood pressure. EMS notified and upon arrival the patient was found to be in distress with systolic blood pressure in the 80's. Pt transported to [facility] for further care and evaluation. Pt seen and evaluated in ED and found to have Sepsis, Infected Sacral Decubitus Ulcer and Encephalopathy. Past History Past Medical History: hx of pulmonary embolism, other (downs syndrome, GERD, dementia) DX Sepsis/ Infected decubitus ulcer POA septic shock Bilat feet ulcers POA- not infected septic shock acute metabolic Encephalopathy hx of PE Plan wound care, empiric abx, case dw LEILANI, jessie to wounds, sp excisional debridement of infected sacral wound 08/29/18 cont ivf, on iv pressors ID consult appreciated on warfarin with lovenox bridge, goal INR is 2 dvt ppx; fully anticoagulated CCT 33 minutes History Interval history: Review of systems Constitutional: No fevers, no malaise, no joint pains CVS: No chest pain, no orthopnea, no dyspnea on exertion, no pedal edema GI: No abdominal pain, no diarrhea, no vomiting, no constipation Respiratory: No shortness of breath, no wheezing, no coughing Hospitalist Physical - Physical exam Narrative exam: General.:mild distress HEENT: Moist mucous membranes, extraocular muscles intact, no lymphadenopathy Neck: supple Cardiac: S1-S2 heard Lungs: clear to auscultation bilaterally Abdomen: soft , nontender, nondistended, bowel sounds positive Extremities: no edema clubbing or cyanosis Skin: : multiple stage 2 wounds of feet - do not appear to be infected sacrum: sacral dressing was not removed Neurologic: non verbal, moves all extremities Psych: calm - Constitutional Vitals: Temp Pulse Resp BP Pulse Ox 97.6 F 83 17 101/56 100 08/31/18 12:00 08/31/18 13:00 08/31/18 13:00 08/31/18 13:00 08/31/18 12:45 General appearance: Present: mild distress Results - Labs CBC & Chem 7: 09/01/18 09:00 09/01/18 09:00 Labs: Laboratory Last Values WBC 11.3 K/mm3 (4.5-11.0) H 08/30/18 13:53 RBC 2.81 M/mm3 (3.65-5.03) L 08/30/18 13:53 Hgb 7.6 gm/dl (10.1-14.3) L 08/30/18 13:53 Hct 25.4 % (30.3-42.9) L 08/30/18 13:53 MCV 90 fl (79-97) 08/30/18 13:53 MCH 27 pg (28-32) L 08/30/18 13:53 MCHC 30 % (30-34) 08/30/18 13:53 RDW 19.4 % (13.2-15.2) H 08/30/18 13:53 Plt Count 382 K/mm3 (140-440) 08/30/18 13:53 Lymph % (Auto) 12.7 % (13.4-35.0) L 08/30/18 13:53 Bell % (Auto) 3.3 % (0.0-7.3) 08/30/18 13:53 Eos % (Auto) 1.0 % (0.0-4.3) 08/30/18 13:53 Baso % (Auto) 0.5 % (0.0-1.8) 08/30/18 13:53 Lymph # 1.4 K/mm3 (1.2-5.4) 08/30/18 13:53 Bell # 0.4 K/mm3 (0.0-0.8) 08/30/18 13:53 Eos # 0.1 K/mm3 (0.0-0.4) 08/30/18 13:53 Baso # 0.1 K/mm3 (0.0-0.1) 08/30/18 13:53 Seg Neutrophils % 82.5 % (40.0-70.0) H 08/30/18 13:53 Seg Neutrophils # 9.3 K/mm3 (1.8-7.7) H 08/30/18 13:53 PT 15.9 Sec. (12.2-14.9) H 08/31/18 04:48 INR 1.23 (0.87-1.13) H 08/31/18 04:48 APTT 37.8 Sec. (24.2-36.6) H 08/27/18 13:15 Sodium 143 mmol/L (137-145) 08/30/18 Unknown Potassium 3.6 mmol/L (3.6-5.0) 08/30/18 Unknown Chloride 112.2 mmol/L (98-107) H 08/30/18 Unknown Carbon Dioxide 22 mmol/L (22-30) 08/30/18 Unknown Anion Gap 12 mmol/L 08/30/18 Unknown BUN 10 mg/dL (7-17) 08/30/18 Unknown Creatinine 0.6 mg/dL (0.7-1.2) L 08/30/18 Unknown Estimated GFR > 60 ml/min 08/30/18 Unknown BUN/Creatinine Ratio 17 % 08/30/18 Unknown Glucose 137 mg/dL (65-100) H 08/30/18 Unknown POC Glucose 96 (70-105) 08/31/18 11:20 Lactic Acid 1.40 mmol/L (0.7-2.0) 08/27/18 20:57 Calcium 8.0 mg/dL (8.4-10.2) L 08/30/18 Unknown Total Bilirubin 0.30 mg/dL (0.1-1.2) 08/27/18 13:15 AST 35 units/L (5-40) 08/27/18 13:15 ALT 35 units/L (7-56) 08/27/18 13:15 Alkaline Phosphatase 87 units/L (35-129) 08/27/18 13:15 Total Creatine Kinase 242 units/L (30-135) H 08/27/18 13:15 Total Protein 6.5 g/dL (6.3-8.2) 08/27/18 13:15 Albumin 2.4 g/dL (3.9-5) L 08/27/18 13:15 Albumin/Globulin Ratio 0.6 % 08/27/18 13:15 Urine Color Yellow (Yellow) 08/27/18 00:15 Urine Turbidity Cloudy (Clear) 08/27/18 00:15 Urine pH 5.0 (5.0-7.0) 08/27/18 00:15 Ur Specific [place] 1.010 (1.003-1.030) 08/27/18 00:15 Urine Protein 30 mg/dl mg/dL (Negative) 08/27/18 00:15 Urine Glucose (UA) Neg mg/dL (Negative) 08/27/18 00:15 Urine Ketones Neg mg/dL (Negative) 08/27/18 00:15 Urine Blood Mod (Negative) 08/27/18 00:15 Urine Nitrite Neg (Negative) 08/27/18 00:15 Urine Bilirubin Neg (Negative) 08/27/18 00:15 Urine Urobilinogen < 2.0 mg/dL (<2.0) 08/27/18 00:15 Ur Leukocyte Esterase Lg (Negative) 08/27/18 00:15 Urine WBC (Auto) > 182.0 /HPF (0.0-6.0) H 08/27/18 00:15 Urine RBC (Auto) 37.0 /HPF (0.0-6.0) 08/27/18 00:15 Urine Bacteria (Auto) 1+ /HPF (Negative) 08/27/18 00:15 Urine WBC Clumps 3+ /HPF 08/27/18 00:15 Urine Mucus Few /HPF 08/27/18 00:15 Vancomycin Trough 13.8 ug/mL (5.0-20.0) 08/30/18 13:53 Blood Type A POSITIVE 08/27/18 13:15 Antibody Screen Negative 08/27/18 13:15 Nutrition/Malnutrition Assess - Dietary Evaluation Nutrition/Malnutrition Findings: Nutrition Notes Start: 08/29/18 15:12 Freq: Status: Active Protocol: Document 08/31/18 12:32 KH (Rec: 08/31/18 13:10 [email or web address]) Co-Sign 08/31/18 12:32 OL Nutrition Notes Initial or Follow up Reassessment Current Diagnosis Decubitus(Pressure Ulcer) Sepsis Other Pertinent Diagnosis Down syndrome, AMS, anemia, functional paraplegia, spinal stenosis Current Diet Pureed Diet Labs/Tests Reviewed Pertinent Medications Coumadin Height 4 ft 2 in Weight 69.7 kg [place] Body Weight (lbs) 50.0 BMI 43.2 Weight Status Morbidly Obese Subjective/Other Information MD consult for DNI education and F/u for PO and ONS intakes . Per RN, PO and ONS intakes are good. Franki has been ordered for pt. to aid in sacral wound healing. Pt. not appropriate for diet education . #2 Nutrition Diagnosis Increased nutrient needs ( specify in comment below) Comments: Protein Etiology wound healing needs As Evidenced by Signs and Symptoms Presence of chronic sacral wounds #1 Nutrition Diagnosis Inadequate oral intake As Evidenced by Signs and Symptoms Pt eating most of food trays Diagnosis Progress(for reassessment Improved documentation) Is patient on ventilator? No Is Patient Ambulatory and/or Out of Bed No [facility] [phone] Calculation Used for Recommendations [facility] Additional Notes Pro: 57 g/day (2.5g/kg IBW) Fluid: 1 ml/kcal Nutrition Intervention Change Diet Order: Continue Pureed diet with thin liquids Add Supplement/Snack (indicate name/kcal Ensure Enlive daily and franki /protein ) BID Provides kCal: 540 Provides Protein (gm) 25 Goal #1 Meet at least 80% of energy and protein needs via PO and ONS intakes Follow-Up By: 09/04/18 Additional Comments F/u: PO and ONS intakes
[2018-08-31] MEDS: COUMADIN PO SCH (18:44)
[2018-08-31] MEDS ORDERED: D5/0.45NS 1,000 ML IV SCH (20:00)
[2018-08-31] MEDS: ARICEPT PO SCH (21:38)
[2018-09-01] MEDS: HumuLIN R SUB-Q SCH ×4 (00:15→20:30)
[2018-09-01 03:37] LABS: INR 1.3 (0.87-1.13)
[2018-09-01] MEDS: FLAGYL 500 MG/100 ML 500 MG/100 ML BAG IV SCH (05:00)
[2018-09-01] MEDS: PROAMATINE PO SCH ×3 (05:44→22:33)
[2018-09-01] MEDS: SODIUM CHLORIDE FLUSH SYRINGE 10 ML IV SCH ×3 (07:43→22:33)
[2018-09-01] MEDS: NIZORAL TP SCH ×2 (07:43→11:16)
[2018-09-01] MEDS: AZACTAM/NS 2 GM/100 ML 2 GM/100 ML VIAL IV SCH (07:44)
[2018-09-01] MEDS: ARICEPT PO SCH ×2 (07:45→22:34)
[2018-09-01] MEDS: PEPCID PO SCH ×3 (07:45→22:34)
[2018-09-01] MEDS: FEOSOL PO SCH ×3 (07:45→22:34)
--- NOTE | 2018-09-01 10:01 | Progress Note ---
Assessment and Plan -Severe sepsis with septic shock -Sacral decubitius ulcer, infected POA -Lactic acidosis -Hyperglycemia -Hypernatremia -Acute on chronic encephalopathy( toxic, metabolic) -h/o CAD, unknown EF -Perihilar infiltrates on CXR -Anemia -History of PE, subtherapeutic INR -Continue antibiotics to complete a 4 week course per discussions with ID -Wound care, has wound vac to the left trochanteric region -Aspiration precautions -Accuchecks with glycemic control. Target glucose 140-180 mg/dL -Therapeutic anticoagulation -Mobility program for pressure ulcer prevention -Discharge planning Subjective Date of service: 09/01/18 Principal diagnosis: Severe sepsis with septic shock; Sacral decubitus ulcer (infected POA) Interval history: Patient is seen today for: severe sepsis with septic shock, decubitus ulcer, encephalopathy Seen and examined at bedside; 24-hour events reviewed; nursing and respiratory care staff consulted; no adverse overnight events reported to me; No fevers, no vomiting, tolerating her diet. Wound care on going Objective - Exam Narrative Exam: General.:mild distress HEENT: Moist mucous membranes, extraocular muscles intact, no lymphadenopathy Neck: supple Cardiac: S1-S2 heard Lungs: clear to auscultation bilaterally Abdomen: soft , nontender, nondistended, bowel sounds positive Extremities: no edema clubbing or cyanosis Skin: : multiple stage 2 wounds of feet - do not appear to be infected sacrum: sacral dressing was not removed Neurologic: non verbal, moves all extremities Psych: calm Vital Signs - 12hr 08/31/18 08/31/18 08/31/18 22:15 22:31 22:45 Temperature Pulse Rate 79 76 77 Respiratory 21 20 19 Rate Blood Pressure 106/52 103/53 99/57 O2 Sat by Pulse 100 100 100 Oximetry 08/31/18 08/31/18 08/31/18 23:00 23:15 23:27 Temperature Pulse Rate 78 74 72 Respiratory 20 18 19 Rate Blood Pressure 103/60 103/60 103/60 O2 Sat by Pulse 100 100 100 Oximetry 08/31/18 08/31/18 08/31/18 23:30 23:31 23:34 Temperature 96.5 F L Pulse Rate 75 Respiratory 18 20 Rate Blood Pressure 103/60 O2 Sat by Pulse 100 100 Oximetry 08/31/18 09/01/18 09/01/18 23:45 00:00 00:03 Temperature Pulse Rate 77 75 76 Respiratory 21 19 18 Rate Blood Pressure 103/60 97/54 97/54 O2 Sat by Pulse 100 100 100 Oximetry 09/01/18 09/01/18 09/01/18 00:05 00:13 00:15 Temperature 97.5 F L Pulse Rate 77 67 Respiratory 19 Rate Blood Pressure 103/60 O2 Sat by Pulse 100 Oximetry 09/01/18 09/01/18 09/01/18 00:31 00:45 01:00 Temperature Pulse Rate 72 71 69 Respiratory 18 18 19 Rate Blood Pressure 103/60 103/60 80/36 O2 Sat by Pulse 100 100 100 Oximetry 09/01/18 09/01/18 09/01/18 01:15 01:31 01:45 Temperature Pulse Rate 70 78 73 Respiratory 24 23 21 Rate Blood Pressure 94/56 94/56 94/56 O2 Sat by Pulse 100 97 100 Oximetry 09/01/18 09/01/18 09/01/18 02:00 02:05 02:15 Temperature Pulse Rate 72 73 73 Respiratory 20 18 16 Rate Blood Pressure 103/59 103/59 O2 Sat by Pulse 100 100 100 Oximetry 09/01/18 09/01/18 09/01/18 02:31 02:45 03:01 Temperature Pulse Rate 59 L 68 73 Respiratory 19 17 17 Rate Blood Pressure 103/59 103/59 116/67 O2 Sat by Pulse 100 100 100 Oximetry 09/01/18 09/01/18 09/01/18 03:15 03:19 03:31 Temperature Pulse Rate 76 78 77 Respiratory 18 17 Rate Blood Pressure 103/59 103/59 O2 Sat by Pulse 100 100 Oximetry 09/01/18 09/01/18 09/01/18 03:45 04:00 04:10 Temperature 97.5 F L Pulse Rate 74 72 68 Respiratory 13 19 18 Rate Blood Pressure 103/59 108/57 O2 Sat by Pulse 100 100 100 Oximetry 09/01/18 09/01/18 09/01/18 04:15 04:31 04:45 Temperature Pulse Rate 68 55 L 68 Respiratory 18 20 18 Rate Blood Pressure 108/57 108/57 108/57 O2 Sat by Pulse 100 100 100 Oximetry 09/01/18 09/01/18 09/01/18 05:00 05:15 05:31 Temperature Pulse Rate 74 88 76 Respiratory 17 19 19 Rate Blood Pressure 100/59 100/59 100/59 O2 Sat by Pulse 100 100 100 Oximetry 09/01/18 09/01/18 09/01/18 05:45 06:00 06:15 Temperature Pulse Rate 76 74 77 Respiratory 17 17 17 Rate Blood Pressure 100/59 108/53 108/53 O2 Sat by Pulse 100 100 100 Oximetry 09/01/18 09/01/18 09/01/18 06:31 06:45 07:00 Temperature Pulse Rate 76 71 70 Respiratory 18 17 19 Rate Blood Pressure 108/53 108/53 110/50 O2 Sat by Pulse 100 100 100 Oximetry 09/01/18 09/01/18 09/01/18 07:15 07:31 07:45 Temperature Pulse Rate 64 61 59 L Respiratory 17 18 16 Rate Blood Pressure 110/50 108/53 108/53 O2 Sat by Pulse 100 100 100 Oximetry 09/01/18 08:07 Temperature Pulse Rate Respiratory Rate Blood Pressure O2 Sat by Pulse 100 Oximetry Constitutional: appears uncomfortable, other (middle aged AAF with downs syndrome fascies and mildly increased respiratory effort) Eyes: non-icteric ENT: oropharynx moist Neck: supple, no lymphadenopathy, no JVD Effort: mildly labored Ascultation: Bilateral: diminished breath sounds, rhonchi Percussion: Bilateral: not dull Cardiovascular: regular rate and rhythm Gastrointestinal: normoactive bowel sounds, soft, non-tender, non-distended Integumentary: decubitus ulcer, other (left hip wound vac) Extremities: no cyanosis, edema, other (contracted) Neurologic: non-focal exam (grossly), pupils equal and round, unable to assess (otherwise) Psychiatric: anxious, other CBC and BMP: 09/03/18 06:16 09/03/18 08:02 ABG, PT/INR, D-dimer: PT/INR, D-dimer PT 16.6 Sec. (12.2-14.9) H 09/01/18 03:15 INR 1.30 (0.87-1.13) H 09/01/18 03:15 Abnormal lab findings: Abnormal Labs 08/27/18 08/27/18 08/27/18 00:15 13:15 13:15 WBC 15.2 H RBC 3.34 L Hgb 9.1 L Hct 29.2 L MCH 27 L RDW 19.3 H Lymph % (Auto) 12.2 L Seg Neutrophils % 81.1 H Seg Neutrophils # 12.4 H PT 16.4 H INR 1.28 H APTT 37.8 H Sodium Chloride BUN Creatinine Glucose POC Glucose Lactic Acid Calcium Total Creatine Kinase Albumin Urine WBC (Auto) > 182.0 H 08/27/18 08/27/18 08/28/18 13:15 15:18 04:16 WBC RBC Hgb Hct MCH RDW Lymph % (Auto) Seg Neutrophils % Seg Neutrophils # PT 16.8 H INR 1.32 H APTT Sodium 147 H Chloride 112.3 H BUN 33 H Creatinine Glucose 121 H POC Glucose Lactic Acid 2.40 H* Calcium 8.3 L Total Creatine Kinase 242 H Albumin 2.4 L Urine WBC (Auto) 08/29/18 08/29/18 08/29/18 03:23 04:55 05:56 WBC RBC Hgb Hct MCH RDW Lymph % (Auto) Seg Neutrophils % Seg Neutrophils # PT 15.7 H INR 1.21 H APTT Sodium Chloride BUN Creatinine Glucose POC Glucose 141 H 118 H Lactic Acid Calcium Total Creatine Kinase Albumin Urine WBC (Auto) 08/29/18 08/29/18 08/29/18 10:14 13:56 17:36 WBC RBC Hgb Hct MCH RDW Lymph % (Auto) Seg Neutrophils % Seg Neutrophils # PT INR APTT Sodium Chloride BUN Creatinine Glucose POC Glucose 171 H 176 H 136 H Lactic Acid Calcium Total Creatine Kinase Albumin Urine WBC (Auto) 08/29/18 08/30/18 08/30/18 21:38 00:31 05:31 WBC RBC Hgb Hct MCH RDW Lymph % (Auto) Seg Neutrophils % Seg Neutrophils # PT INR APTT Sodium Chloride BUN Creatinine Glucose POC Glucose 178 H 184 H 184 H Lactic Acid Calcium Total Creatine Kinase Albumin Urine WBC (Auto) 08/30/18 08/30/18 08/30/18 07:09 08:39 11:28 WBC RBC Hgb Hct MCH RDW Lymph % (Auto) Seg Neutrophils % Seg Neutrophils # PT 109.8 H 16.5 H INR 15.43 H* 1.29 H APTT Sodium Chloride BUN Creatinine Glucose POC Glucose 174 H Lactic Acid Calcium Total Creatine Kinase Albumin Urine WBC (Auto) 08/30/18 08/30/18 08/30/18 13:53 17:56 Unknown WBC 11.3 H RBC 2.81 L Hgb 7.6 L Hct 25.4 L MCH 27 L RDW 19.4 H Lymph % (Auto) 12.7 L Seg Neutrophils % 82.5 H Seg Neutrophils # 9.3 H PT INR APTT Sodium Chloride 112.2 H BUN Creatinine 0.6 L Glucose 137 H POC Glucose 126 H Lactic Acid Calcium 8.0 L Total Creatine Kinase Albumin Urine WBC (Auto) 08/31/18 08/31/18 08/31/18 00:33 04:48 16:48 WBC RBC Hgb Hct MCH RDW Lymph % (Auto) Seg Neutrophils % Seg Neutrophils # PT 15.9 H INR 1.23 H APTT Sodium Chloride BUN Creatinine Glucose POC Glucose 126 H 148 H Lactic Acid Calcium Total Creatine Kinase Albumin Urine WBC (Auto) 08/31/18 09/01/18 09/01/18 21:35 00:14 03:15 WBC RBC Hgb Hct MCH RDW Lymph % (Auto) Seg Neutrophils % Seg Neutrophils # PT 16.6 H INR 1.30 H APTT Sodium Chloride BUN Creatinine Glucose POC Glucose 134 H 177 H Lactic Acid Calcium Total Creatine Kinase Albumin Urine WBC (Auto) 09/01/18 04:44 WBC RBC Hgb Hct MCH RDW Lymph % (Auto) Seg Neutrophils % Seg Neutrophils # PT INR APTT Sodium Chloride BUN Creatinine Glucose POC Glucose 161 H Lactic Acid Calcium Total Creatine Kinase Albumin Urine WBC (Auto) Allied health notes reviewed: nursing
--- NOTE | 2018-09-01 10:09 | Progress Note ---
Assessment and Plan Cultures: 09/13/2017 sacral wound culture: Proteus mirabilis. 08/27/2018 urine culture: No growth 08/27/2018 blood culture: No growth 08/29/2018 Debridement culture: in process, no growth thus far A/P: 48-year-old female who is a shelter resident with Down syndrome, dementia, debility, sacral decubitus ulcer, spinal stenosis, paraplegia, admitted with: #1 Septic shock: Likely secondary to infected sacral decubitus ulcer, stage IV and possible UTI: Status post debridement which was all the way down to the bone on 08/29/2018 by general surgery. Hence, eventually will plan to treat as acute osteomyelitis. #2 UTI: UA on admission showed significant pyuria. Patient cannot provide any history. Urine culture so far with no growth. Has received adequate antibiotics. #3 Acute encephalopathy: On background of Down syndrome and dementia. #4 Penicillin allergy: Per review of her chart in detail, it seems patient re ceived IV Ceftriaxone during a prior admission in 08/2017, hence Cephalosporins should be safe and she has been tolerating it well. #5 Right hip effusion noted on CT: likely inflammatory. Watch for now. Recs: Continue IV Ceftriaxone 2 gm q24 hrs, plan for 4 weeks from date of debridement will discontinue Flagyl Will follow. Please call with questions. Sly Wilson MD [facility], [place], [facility] C: [phone] O: [phone] F: [phone] Subjective Date of service: 09/01/18 Principal diagnosis: Severe sepsis with septic shock; Sacral decubitus ulcer (infected POA) Interval history: No fever. Stable. Non verbal at baseline. Objective - Exam Narrative Exam: Physical Exam: Constitutional: awake, non verbal. No distress Head, Ears, Nose: Normocephalic, atraumatic. External ears, nose normal Eyes: Conjunctivae/corneas clear. No icterus. No ptosis. Neck: Supple, no meningeal signs Oral: unable to examine. Cardiovascular: S1, S2 normal. Respiratory: Good air entry, clear to auscultation bilaterally GI: Soft, non-tender; bowel sounds normal. No peritoneal signs Musculoskeletal: contractures +, no pedal edema. Sacral wound + with dressing Skin: No rash. Hem/Lymphatic: No palpable cervical or supraclavicular nodes. No lymphangitis Psych: no agitation Neurological: Awake, alert, non verbal. - Constitutional Vitals: Vital Signs Temp Pulse Resp BP Pulse Ox 97.5 F L 59 L 16 108/53 100 09/01/18 04:10 09/01/18 07:45 09/01/18 07:45 09/01/18 07:45 09/01/18 08:07 Temperature -Last 24 Hours Temperature 97.5 F Temperature 97.5 F Temperature 96.5 F Temperature 98.4 F Temperature 97.5 F Temperature 97.6 F - Labs CBC & Chem 7: 08/30/18 13:53 08/30/18 Unknown Labs: Abnormal lab results 08/31/18 08/31/18 09/01/18 Range/Units 16:48 21:35 00:14 PT (12.2-14.9) Sec. INR (0.87-1.13) POC Glucose 148 H 134 H 177 H (70-105) 09/01/18 09/01/18 Range/Units 03:15 04:44 PT 16.6 H (12.2-14.9) Sec. INR 1.30 H (0.87-1.13) POC Glucose 161 H (70-105)
[2018-09-01] MEDS: FOLVITE PO SCH (10:30)
[2018-09-01] MEDS: LOVENOX SUB-Q SCH ×2 (11:16→22:33)
[2018-09-01] MEDS: ROCEPHIN/NS 2 GM/100 ML 2 GM/100 ML BAG IV SCH (11:17)
[2018-09-01 12:03] LABS: Mean Corpuscular HGB Conc 30 % (30-34); Mean Corpuscular Volume 93 fl (79-97); Platelet Count 283 K/mm3 (140-440); Red Blood Count 3.42 M/mm3 (3.65-5.03)
[2018-09-01 12:05] LABS: Hematocrit 31.8 % (30.3-42.9); Hemoglobin 9.6 gm/dl (10.1-14.3)
[2018-09-01 12:06] LABS: Red Cell Distribution Width 20.4 % (13.2-15.2)
[2018-09-01 12:27] LABS: BUN/Creatinine Ratio 10; Blood Urea Nitrogen 7 mg/dL (7-17); Calcium 7.6 mg/dL (8.4-10.2); Hemolysis Index 42
[2018-09-01 13:09] LABS: Basophils % (Manual) 0 % (0.0-1.8); Eosinophils % (Manual) 0 % (0.0-4.3); Total Cells Counted 100
[2018-09-01 13:15] LABS: Anisocytosis 1+; Platelet Estimate c
--- NOTE | 2018-09-01 14:43 | Progress Note ---
Assessment and Plan Assessment and plan: 48 YO Female Long Term Facility Resident with Downs Syndrome, Dementia, Debility, Sacral Decubitus Ulcer, HTN, GERD, Spinal Stenosis, Depression, Paraplegia presents to ED for evaluation. As per NH staff, the patient was found to have foul smelling discharge in the area of her sacral decubitus ulcer, as well as fever to 101.2 , and hypotension, was also less responsive Past History Past Medical History: hx of pulmonary embolism, other (downs syndrome, GERD, dementia) DX Sepsis/ Infected decubitus ulcer POA septic shock Bilat feet ulcers POA- not infected septic shock acute metabolic Encephalopathy hx of PE Plan wound care, empiric abx, case dw GS, jessie to wounds, sp excisional debridement of infected sacral wound 08/29/18 weaned off pressors on 08/31/18 ID consult appreciated, to continue abx for total of 4 weeks from day, till September 26 2018 planned for dc to [facility] on Tuesday for intensive wound care, then back to SNF on warfarin with lovenox bridge, goal INR is 2 dvt ppx; fully anticoagulated transfer to Med/surg if continues to improve CCT 33 minutes History Interval history: Review of systems Constitutional: No fevers, no malaise, no joint pains CVS: No chest pain, no orthopnea, no dyspnea on exertion, no pedal edema GI: No abdominal pain, no diarrhea, no vomiting, no constipation Respiratory: No shortness of breath, no wheezing, no coughing Hospitalist Physical - Physical exam Narrative exam: General.:mild distress HEENT: Moist mucous membranes, extraocular muscles intact, no lymphadenopathy Neck: supple Cardiac: S1-S2 heard Lungs: clear to auscultation bilaterally Abdomen: soft , nontender, nondistended, bowel sounds positive Extremities: no edema clubbing or cyanosis Skin: : multiple stage 2 wounds of feet - do not appear to be infected sacrum: sacral dressing was not removed Neurologic: non verbal, moves all extremities Psych: calm - Constitutional Vitals: Temp Pulse Resp BP Pulse Ox 97.5 F L 79 15 118/67 100 09/01/18 04:10 09/01/18 12:15 09/01/18 12:15 09/01/18 12:15 09/01/18 12:15 General appearance: Present: mild distress Results - Labs CBC & Chem 7: 09/01/18 09:00 09/01/18 09:00 Labs: Laboratory Last Values WBC 8.3 K/mm3 (4.5-11.0) 09/01/18 09:00 RBC 3.42 M/mm3 (3.65-5.03) L 09/01/18 09:00 Hgb 9.6 gm/dl (10.1-14.3) L 09/01/18 09:00 Hct 31.8 % (30.3-42.9) D 09/01/18 09:00 MCV 93 fl (79-97) 09/01/18 09:00 MCH 28 pg (28-32) 09/01/18 09:00 MCHC 30 % (30-34) 09/01/18 09:00 RDW 20.4 % (13.2-15.2) H 09/01/18 09:00 Plt Count 283 K/mm3 (140-440) 09/01/18 09:00 Lymph % (Auto) 12.7 % (13.4-35.0) L 08/30/18 13:53 Simpson % (Auto) 3.3 % (0.0-7.3) 08/30/18 13:53 Eos % (Auto) 1.0 % (0.0-4.3) 08/30/18 13:53 Baso % (Auto) 0.5 % (0.0-1.8) 08/30/18 13:53 Lymph # 1.4 K/mm3 (1.2-5.4) 08/30/18 13:53 Simpson # 0.4 K/mm3 (0.0-0.8) 08/30/18 13:53 Eos # 0.1 K/mm3 (0.0-0.4) 08/30/18 13:53 Baso # 0.1 K/mm3 (0.0-0.1) 08/30/18 13:53 Add Manual Diff Complete 09/01/18 09:00 Total Counted 100 09/01/18 09:00 Seg Neutrophils % 82.5 % (40.0-70.0) H 08/30/18 13:53 Seg Neuts % (Manual) 84.0 % (40.0-70.0) H 09/01/18 09:00 Band Neutrophils % 0 % 09/01/18 09:00 Lymphocytes % (Manual) 13.0 % (13.4-35.0) L 09/01/18 09:00 Reactive Lymphs % (Man) 0 % 09/01/18 09:00 Monocytes % (Manual) 3.0 % (0.0-7.3) 09/01/18 09:00 Eosinophils % (Manual) 0 % (0.0-4.3) 09/01/18 09:00 Basophils % (Manual) 0 % (0.0-1.8) 09/01/18 09:00 Metamyelocytes % 0 % 09/01/18 09:00 Myelocytes % 0 % 09/01/18 09:00 Promyelocytes % 0 % 09/01/18 09:00 Blast Cells % 0 % 09/01/18 09:00 Nucleated RBC % Not Reportable 09/01/18 09:00 Seg Neutrophils # 9.3 K/mm3 (1.8-7.7) H 08/30/18 13:53 Seg Neutrophils # Man 7.0 K/mm3 (1.8-7.7) 09/01/18 09:00 Band Neutrophils # 0.0 K/mm3 09/01/18 09:00 Lymphocytes # (Manual) 1.1 K/mm3 (1.2-5.4) L 09/01/18 09:00 Abs React Lymphs (Man) 0.0 K/mm3 09/01/18 09:00 Monocytes # (Manual) 0.2 K/mm3 (0.0-0.8) 09/01/18 09:00 Eosinophils # (Manual) 0.0 K/mm3 (0.0-0.4) 09/01/18 09:00 Basophils # (Manual) 0.0 K/mm3 (0.0-0.1) 09/01/18 09:00 Metamyelocytes # 0.0 K/mm3 09/01/18 09:00 Myelocytes # 0.0 K/mm3 09/01/18 09:00 Promyelocytes # 0.0 K/mm3 09/01/18 09:00 Blast Cells # 0.0 K/mm3 09/01/18 09:00 WBC Morphology Not Reportable 09/01/18 09:00 Hypersegmented Neuts Not Reportable 09/01/18 09:00 Hyposegmented Neuts Not Reportable 09/01/18 09:00 Hypogranular Neuts Not Reportable 09/01/18 09:00 Smudge Cells Not Reportable 09/01/18 09:00 Toxic Granulation Not Reportable 09/01/18 09:00 Toxic Vacuolation Not Reportable 09/01/18 09:00 Dohle Bodies Not Reportable 09/01/18 09:00 Pelger-Huet Anomaly Not Reportable 09/01/18 09:00 Carlos Rods Not Reportable 09/01/18 09:00 Platelet Estimate c 09/01/18 09:00 Clumped Platelets Not Reportable 09/01/18 09:00 Plt Clumps, EDTA Not Reportable 09/01/18 09:00 Large Platelets Not Reportable 09/01/18 09:00 Giant Platelets Not Reportable 09/01/18 09:00 Platelet Satelliting Not Reportable 09/01/18 09:00 Plt Morphology Comment Not Reportable 09/01/18 09:00 RBC Morphology Not Reportable 09/01/18 09:00 Dimorphic RBCs Not Reportable 09/01/18 09:00 Polychromasia Not Reportable 09/01/18 09:00 Hypochromasia Not Reportable 09/01/18 09:00 Poikilocytosis Not Reportable 09/01/18 09:00 Anisocytosis 1+ 09/01/18 09:00 Microcytosis Not Reportable 09/01/18 09:00 Macrocytosis Not Reportable 09/01/18 09:00 Spherocytes Not Reportable 09/01/18 09:00 Pappenheimer Bodies Not Reportable 09/01/18 09:00 Sickle Cells Not Reportable 09/01/18 09:00 Target Cells Not Reportable 09/01/18 09:00 Tear Drop Cells Not Reportable 09/01/18 09:00 Ovalocytes Not Reportable 09/01/18 09:00 Helmet Cells Not Reportable 09/01/18 09:00 Cerv[place] Bodies Not Reportable 09/01/18 09:00 Morse Rings Not Reportable 09/01/18 09:00 Leanna Cells Not Reportable 09/01/18 09:00 Bite Cells Not Reportable 09/01/18 09:00 Crenated Cell Not Reportable 09/01/18 09:00 Elliptocytes Not Reportable 09/01/18 09:00 Acanthocytes (Spur) Not Reportable 09/01/18 09:00 Rouleaux Not Reportable 09/01/18 09:00 Hemoglobin C Crystals Not Reportable 09/01/18 09:00 Schistocytes Not Reportable 09/01/18 09:00 Malaria parasites Not Reportable 09/01/18 09:00 Emanuel Bodies Not Reportable 09/01/18 09:00 Hem Pathologist Commnt n 09/01/18 09:00 PT 16.6 Sec. (12.2-14.9) H 09/01/18 03:15 INR 1.30 (0.87-1.13) H 09/01/18 03:15 APTT 37.8 Sec. (24.2-36.6) H 08/27/18 13:15 Sodium 144 mmol/L (137-145) 09/01/18 09:00 Potassium 3.9 mmol/L (3.6-5.0) 09/01/18 09:00 Chloride 113.3 mmol/L (98-107) H 09/01/18 09:00 Carbon Dioxide 19 mmol/L (22-30) L 09/01/18 09:00 Anion Gap 16 mmol/L 09/01/18 09:00 BUN 7 mg/dL (7-17) 09/01/18 09:00 Creatinine 0.7 mg/dL (0.7-1.2) 09/01/18 09:00 Estimated GFR > 60 ml/min 09/01/18 09:00 BUN/Creatinine Ratio 10 % 09/01/18 09:00 Glucose 112 mg/dL (65-100) H 09/01/18 09:00 POC Glucose 190 (70-105) H 09/01/18 11:33 Lactic Acid 1.40 mmol/L (0.7-2.0) 08/27/18 20:57 Calcium 7.6 mg/dL (8.4-10.2) L 09/01/18 09:00 Total Bilirubin 0.30 mg/dL (0.1-1.2) 08/27/18 13:15 AST 35 units/L (5-40) 08/27/18 13:15 ALT 35 units/L (7-56) 08/27/18 13:15 Alkaline Phosphatase 87 units/L (35-129) 08/27/18 13:15 Total Creatine Kinase 242 units/L (30-135) H 08/27/18 13:15 Total Protein 6.5 g/dL (6.3-8.2) 08/27/18 13:15 Albumin 2.4 g/dL (3.9-5) L 08/27/18 13:15 Albumin/Globulin Ratio 0.6 % 08/27/18 13:15 Urine Color Yellow (Yellow) 08/27/18 00:15 Urine Turbidity Cloudy (Clear) 08/27/18 00:15 Urine pH 5.0 (5.0-7.0) 08/27/18 00:15 Ur Specific Ulen 1.010 (1.003-1.030) 08/27/18 00:15 Urine Protein 30 mg/dl mg/dL (Negative) 08/27/18 00:15 Urine Glucose (UA) Neg mg/dL (Negative) 08/27/18 00:15 Urine Ketones Neg mg/dL (Negative) 08/27/18 00:15 Urine Blood Mod (Negative) 08/27/18 00:15 Urine Nitrite Neg (Negative) 08/27/18 00:15 Urine Bilirubin Neg (Negative) 08/27/18 00:15 Urine Urobilinogen < 2.0 mg/dL (<2.0) 08/27/18 00:15 Ur Leukocyte Esterase Lg (Negative) 08/27/18 00:15 Urine WBC (Auto) > 182.0 /HPF (0.0-6.0) H 08/27/18 00:15 Urine RBC (Auto) 37.0 /HPF (0.0-6.0) 08/27/18 00:15 Urine Bacteria (Auto) 1+ /HPF (Negative) 08/27/18 00:15 Urine WBC Clumps 3+ /HPF 08/27/18 00:15 Urine Mucus Few /HPF 08/27/18 00:15 Vancomycin Trough 13.8 ug/mL (5.0-20.0) 08/30/18 13:53 Blood Type A POSITIVE 08/27/18 13:15 Antibody Screen Negative 08/27/18 13:15 Nutrition/Malnutrition Assess - Dietary Evaluation Nutrition/Malnutrition Findings: Nutrition Notes Start: 08/29/18 15:12 Freq: Status: Active Protocol: Document 08/31/18 12:32 KH (Rec: 08/31/18 13:10 [email or web address]) Co-Sign 08/31/18 12:32 OL Nutrition Notes Initial or Follow up Reassessment Current Diagnosis Decubitus(Pressure Ulcer) Sepsis Other Pertinent Diagnosis Down syndrome, AMS, anemia, functional paraplegia, spinal stenosis Current Diet Pureed Diet Labs/Tests Reviewed Pertinent Medications Coumadin Height 4 ft 2 in Weight 69.7 kg [place] Body Weight (lbs) 50.0 BMI 43.2 Weight Status Morbidly Obese Subjective/Other Information MD consult for DNI education and F/u for PO and ONS intakes . Per RN, PO and ONS intakes are good. Franki has been ordered for pt. to aid in sacral wound healing. Pt. not appropriate for diet education . #2 Nutrition Diagnosis Increased nutrient needs ( specify in comment below) Comments: Protein Etiology wound healing needs As Evidenced by Signs and Symptoms Presence of chronic sacral wounds #1 Nutrition Diagnosis Inadequate oral intake As Evidenced by Signs and Symptoms Pt eating most of food trays Diagnosis Progress(for reassessment Improved documentation) Is patient on ventilator? No Is Patient Ambulatory and/or Out of Bed No REE-([place]-confined to bed) 1311.468 Calculation Used for [facility]ations [facility] Additional Notes Pro: 57 g/day (2.5g/kg IBW) Fluid: 1 ml/kcal Nutrition Intervention Change Diet Order: Continue Pureed diet with thin liquids Add Supplement/Snack (indicate name/kcal Ensure Enlive daily and franki /protein ) BID Provides kCal: 540 Provides Protein (gm) 25 Goal #1 Meet at least 80% of energy and protein needs via PO and ONS intakes Follow-Up By: 09/04/18 Additional Comments F/u: PO and ONS intakes
[2018-09-01] MEDS: COUMADIN PO SCH (17:13)
[2018-09-02] MEDS: HumuLIN R SUB-Q SCH ×4 (01:32→17:14)
[2018-09-02] MEDS: PROAMATINE PO SCH ×4 (06:49→21:55)
[2018-09-02 09:23] LABS: INR 1.23 (0.87-1.13)
[2018-09-02] MEDS ORDERED: ATIVAN IV ONE (09:38)
[2018-09-02] MEDS: FOLVITE PO SCH (10:10)
[2018-09-02] MEDS: FEOSOL PO SCH ×3 (10:10→21:55)
[2018-09-02] MEDS: PEPCID PO SCH ×3 (10:11→21:55)
[2018-09-02] MEDS ORDERED: ATIVAN IV PRN (10:12)
[2018-09-02] MEDS: ROCEPHIN/NS 2 GM/100 ML 2 GM/100 ML BAG IV SCH (10:26)
[2018-09-02] MEDS: LOVENOX SUB-Q SCH ×2 (10:36→21:55)
--- NOTE | 2018-09-02 10:55 | XRay Report ---
FINAL REPORT EXAM: XR CHEST 1V AP HISTORY: ams COMPARISON: 08/30/2018 TECHNIQUE: Single frontal view of the chest FINDINGS: Median sternotomy wires are unchanged in position. Right upper extremity PICC line with tip in the superior vena cava. The cardiomediastinal silhouette is normal in appearance. Small right pleural effusion. Unchanged prominence of the interstitium. No acute bony or soft tissue abnormality. IMPRESSION: Small right pleural effusion and unchanged interstitial prominence that may represent interstitial ed leticia.
--- NOTE | 2018-09-02 11:27 | Cat Scan Report ---
FINAL REPORT EXAM: CT HEAD/BRAIN WO CON HISTORY: sz COMPARISON: None. TECHNIQUE: Multiple contiguous axial images were obtained from the skullbase to the vertex without a dministration of IV contrast. FINDINGS: There is cerebral cortical atrophy, advanced for the patient's age. There is no parenchymal hemorrhag e or extra-axial fluid collection. There is no mass or mass effect. There is no acute territorial inf arct. There are patchy areas of decreased attenuation in the subcortical and periventricular white ma tter, which may be due to chronic microvascular ischemic disease or demyelinating disease. The ventri cles are midline. The subarachnoid spaces and basilar cisterns are clear. There is no skull fracture. There is mucosal disease in the bilateral paranasal sinuses. Mastoid air cells are clear.. Bilateral orbits are intact. IMPRESSION: No acute intracranial abnormality. Cerebral cortical atrophy, advanced for the patient's age. Patchy areas of decreased attenuation in the subcortical and periventricular white matter, which may be due to chronic microvascular ischemic disease or demyelinating disease.
[2018-09-02] MEDS: KEPPRA 750 MG in NACL 0.9% 100 ML IV SCH ×2 (12:12→21:54)
[2018-09-02] MEDS: SODIUM CHLORIDE FLUSH SYRINGE 10 ML IV SCH ×2 (12:15→21:55)
[2018-09-02] MEDS: NIZORAL TP SCH (13:45)
[2018-09-02] MEDS ORDERED: NACL 0.9% 500 ML 500 ML IV ONE (15:28)
[2018-09-02] MEDS: NACL 0.9% 1000 ML 1,000 ML IV SCH (16:55)
[2018-09-02] MEDS: COUMADIN PO SCH (17:06)
--- NOTE | 2018-09-02 17:26 | Progress Note ---
Assessment and Plan - Patient Problems (1) Seizure disorder Current Visit: Yes Status: Acute Plan to address problem: patient with acute seizure given Ativan to stop an issue seizure patient was started on Keppra 500 mg twice a day. Neurology follow-up. Head CT scan evaluated showed advanced atrophy. Also white matter disease. Chest x-ray also evaluated possible aspiration pneumonia that his labs obtained. Already on broad-spectrum antibiotics. (2) Encephalopathy Current Visit: Yes Status: Acute Plan to address problem: Patient encephalopathic and also postictal. Encephalopathy multifactorial seizure disorder, sepsis and underlying dementia. (3) Infected decubitus ulcer Current Visit: Yes Status: Acute Plan to address problem: Infected decubitus ulcer. Continue antibiotics for 4 weeks appreciate infectious disease input. Local wound care. Patient scheduled to go to LTAC on Tuesday for further debridement and treatment of wounds and then back to longterm facility. (4) Sepsis Current Visit: Yes Status: Acute Qualifiers: Sepsis type: sepsis due to unspecified organism Qualified Code(s): A41.9 - Sepsis, unspecified organism Plan to address problem: Acute sepsis resolving continue current antibiotic coverage. (5) Acute renal failure Current Visit: No Status: Acute (6) Pulmonary embolism Current Visit: No Status: Acute Qualifiers: Chronicity: acute Acute cor pulmonale presence: without acute cor pulmonale Plan to address problem: Continue current anticoagulation no evidence of bleeding. CT head no evidence of bleeding. History Interval history: Patient today hospital course complicated by an acute seizure. Patient was just in the room being fair. An approximately 20 minutes later nurse was started back in the room to 5 patient having twitching right face arm consistent with Jacksonian seizure. By the time I arrived patient appeared to be in a postictal state. N did in continue to have some twitching. Patient hemodynamically was stable. Respiration was stable oxygenation was stable. After the seizure. During this procedure patient's sats did decrease somewhat. I did call physician from [facility] to assess patient's baseline and patient was not at her baseline at this particular time. Patient probably has not been in her baseline since sepsis. But I did not see the patient upon initial admission. All suggest this point to acute seizure disorder at this time. Hospitalist Physical - Constitutional Vitals: Temp Pulse Resp BP Pulse Ox 97.9 F 81 22 108/61 98 09/02/18 13:23 09/02/18 13:23 09/02/18 13:23 09/02/18 17:04 09/02/18 13:23 General appearance: Present: mild distress, other (remains encephalopathic) - EENT Eyes: Present: PERRL, EOM intact ENT: hearing intact, clear oral mucosa, poor dentition, no dentition normal, no thrush, no ulcerations - Neck Neck: Present: supple, normal ROM - Respiratory Respiratory effort: normal Respiratory: negative: diminished Details: She did not have any accessory muscle use. She did have deep inspirations cons istent with being post ictal. Encephalopathic consistent with both ictal. - Extremities Extremities: pulses intact Extremity abnormal: edema, ulceration, other (debility) Peripheral Pulses: within normal limits - Abdominal General gastrointestinal: non-tender, non-distended, hypoactive bowel sounds, other (obese) - Psychiatric Psychiatric: other (remains encephalopathic appears to have multi-infarct dementia.) Results - Labs CBC & Chem 7: 09/01/18 09:00 09/01/18 09:00 Labs: Laboratory Last Values WBC 8.3 K/mm3 (4.5-11.0) 09/01/18 09:00 RBC 3.42 M/mm3 (3.65-5.03) L 09/01/18 09:00 Hgb 9.6 gm/dl (10.1-14.3) L 09/01/18 09:00 Hct 31.8 % (30.3-42.9) D 09/01/18 09:00 MCV 93 fl (79-97) 09/01/18 09:00 MCH 28 pg (28-32) 09/01/18 09:00 MCHC 30 % (30-34) 09/01/18 09:00 RDW 20.4 % (13.2-15.2) H 09/01/18 09:00 Plt Count 283 K/mm3 (140-440) 09/01/18 09:00 Lymph % (Auto) 12.7 % (13.4-35.0) L 08/30/18 13:53 [place] % (Auto) 3.3 % (0.0-7.3) 08/30/18 13:53 Eos % (Auto) 1.0 % (0.0-4.3) 08/30/18 13:53 Baso % (Auto) 0.5 % (0.0-1.8) 08/30/18 13:53 Lymph # 1.4 K/mm3 (1.2-5.4) 08/30/18 13:53 [place] # 0.4 K/mm3 (0.0-0.8) 08/30/18 13:53 Eos # 0.1 K/mm3 (0.0-0.4) 08/30/18 13:53 Baso # 0.1 K/mm3 (0.0-0.1) 08/30/18 13:53 Add Manual Diff Complete 09/01/18 09:00 Total Counted 100 09/01/18 09:00 Seg Neutrophils % 82.5 % (40.0-70.0) H 08/30/18 13:53 Seg Neuts % (Manual) 84.0 % (40.0-70.0) H 09/01/18 09:00 Band Neutrophils % 0 % 09/01/18 09:00 Lymphocytes % (Manual) 13.0 % (13.4-35.0) L 09/01/18 09:00 Reactive Lymphs % (Man) 0 % 09/01/18 09:00 Monocytes % (Manual) 3.0 % (0.0-7.3) 09/01/18 09:00 Eosinophils % (Manual) 0 % (0.0-4.3) 09/01/18 09:00 Basophils % (Manual) 0 % (0.0-1.8) 09/01/18 09:00 Metamyelocytes % 0 % 09/01/18 09:00 Myelocytes % 0 % 09/01/18 09:00 Promyelocytes % 0 % 09/01/18 09:00 Blast Cells % 0 % 09/01/18 09:00 Nucleated RBC % Not Reportable 09/01/18 09:00 Seg Neutrophils # 9.3 K/mm3 (1.8-7.7) H 08/30/18 13:53 Seg Neutrophils # Man 7.0 K/mm3 (1.8-7.7) 09/01/18 09:00 Band Neutrophils # 0.0 K/mm3 09/01/18 09:00 Lymphocytes # (Manual) 1.1 K/mm3 (1.2-5.4) L 09/01/18 09:00 Abs React Lymphs (Man) 0.0 K/mm3 09/01/18 09:00 Monocytes # (Manual) 0.2 K/mm3 (0.0-0.8) 09/01/18 09:00 Eosinophils # (Manual) 0.0 K/mm3 (0.0-0.4) 09/01/18 09:00 Basophils # (Manual) 0.0 K/mm3 (0.0-0.1) 09/01/18 09:00 Metamyelocytes # 0.0 K/mm3 09/01/18 09:00 Myelocytes # 0.0 K/mm3 09/01/18 09:00 Promyelocytes # 0.0 K/mm3 09/01/18 09:00 Blast Cells # 0.0 K/mm3 09/01/18 09:00 WBC Morphology Not Reportable 09/01/18 09:00 Hypersegmented Neuts Not Reportable 09/01/18 09:00 Hyposegmented Neuts Not Reportable 09/01/18 09:00 Hypogranular Neuts Not Reportable 09/01/18 09:00 Smudge Cells Not Reportable 09/01/18 09:00 Toxic Granulation Not Reportable 09/01/18 09:00 Toxic Vacuolation Not Reportable 09/01/18 09:00 Dohle Bodies Not Reportable 09/01/18 09:00 Pelger-Huet Anomaly Not Reportable 09/01/18 09:00 Carlos Rods Not Reportable 09/01/18 09:00 Platelet Estimate c 09/01/18 09:00 Clumped Platelets Not Reportable 09/01/18 09:00 Plt Clumps, EDTA Not Reportable 09/01/18 09:00 Large Platelets Not Reportable 09/01/18 09:00 Giant Platelets Not Reportable 09/01/18 09:00 Platelet Satelliting Not Reportable 09/01/18 09:00 Plt Morphology Comment Not Reportable 09/01/18 09:00 RBC Morphology Not Reportable 09/01/18 09:00 Dimorphic RBCs Not Reportable 09/01/18 09:00 Polychromasia Not Reportable 09/01/18 09:00 Hypochromasia Not Reportable 09/01/18 09:00 Poikilocytosis Not Reportable 09/01/18 09:00 Anisocytosis 1+ 09/01/18 09:00 Microcytosis Not Reportable 09/01/18 09:00 Macrocytosis Not Reportable 09/01/18 09:00 Spherocytes Not Reportable 09/01/18 09:00 Pappenheimer Bodies Not Reportable 09/01/18 09:00 Sickle Cells Not Reportable 09/01/18 09:00 Target Cells Not Reportable 09/01/18 09:00 Tear Drop Cells Not Reportable 09/01/18 09:00 Ovalocytes Not Reportable 09/01/18 09:00 Helmet Cells Not Reportable 09/01/18 09:00 Cervantes-Max Bodies Not Reportable 09/01/18 09:00 [place] Rings Not Reportable 09/01/18 09:00 [place] Cells Not Reportable 09/01/18 09:00 Bite Cells Not Reportable 09/01/18 09:00 Crenated Cell Not Reportable 09/01/18 09:00 Elliptocytes Not Reportable 09/01/18 09:00 Acanthocytes (Spur) Not Reportable 09/01/18 09:00 Rouleaux Not Reportable 09/01/18 09:00 Hemoglobin C Crystals Not Reportable 09/01/18 09:00 Schistocytes Not Reportable 09/01/18 09:00 Malaria parasites Not Reportable 09/01/18 09:00 Emanuel Bodies Not Reportable 09/01/18 09:00 Hem Pathologist Commnt n 09/01/18 09:00 PT 15.9 Sec. (12.2-14.9) H 09/02/18 08:55 INR 1.23 (0.87-1.13) H 09/02/18 08:55 APTT 37.8 Sec. (24.2-36.6) H 08/27/18 13:15 Sodium 144 mmol/L (137-145) 09/01/18 09:00 Potassium 3.9 mmol/L (3.6-5.0) 09/01/18 09:00 Chloride 113.3 mmol/L (98-107) H 09/01/18 09:00 Carbon Dioxide 19 mmol/L (22-30) L 09/01/18 09:00 Anion Gap 16 mmol/L 09/01/18 09:00 BUN 7 mg/dL (7-17) 09/01/18 09:00 Creatinine 0.7 mg/dL (0.7-1.2) 09/01/18 09:00 Estimated GFR > 60 ml/min 09/01/18 09:00 BUN/Creatinine Ratio 10 % 09/01/18 09:00 Glucose 112 mg/dL (65-100) H 09/01/18 09:00 POC Glucose 131 (70-105) H 09/02/18 17:13 Lactic Acid 1.40 mmol/L (0.7-2.0) 08/27/18 20:57 Calcium 7.6 mg/dL (8.4-10.2) L 09/01/18 09:00 Total Bilirubin 0.30 mg/dL (0.1-1.2) 08/27/18 13:15 AST 35 units/L (5-40) 08/27/18 13:15 ALT 35 units/L (7-56) 08/27/18 13:15 Alkaline Phosphatase 87 units/L (35-129) 08/27/18 13:15 Total Creatine Kinase 242 units/L (30-135) H 08/27/18 13:15 Total Protein 6.5 g/dL (6.3-8.2) 08/27/18 13:15 Albumin 2.4 g/dL (3.9-5) L 08/27/18 13:15 Albumin/Globulin Ratio 0.6 % 08/27/18 13:15 Urine Color Yellow (Yellow) 08/27/18 00:15 Urine Turbidity Cloudy (Clear) 08/27/18 00:15 Urine pH 5.0 (5.0-7.0) 08/27/18 00:15 Ur Specific [place] 1.010 (1.003-1.030) 08/27/18 00:15 Urine Protein 30 mg/dl mg/dL (Negative) 08/27/18 00:15 Urine Glucose (UA) Neg mg/dL (Negative) 08/27/18 00:15 Urine Ketones Neg mg/dL (Negative) 08/27/18 00:15 Urine Blood Mod (Negative) 08/27/18 00:15 Urine Nitrite Neg (Negative) 08/27/18 00:15 Urine Bilirubin Neg (Negative) 08/27/18 00:15 Urine Urobilinogen < 2.0 mg/dL (<2.0) 08/27/18 00:15 Ur Leukocyte Esterase Lg (Negative) 08/27/18 00:15 Urine WBC (Auto) > 182.0 /HPF (0.0-6.0) H 08/27/18 00:15 Urine RBC (Auto) 37.0 /HPF (0.0-6.0) 08/27/18 00:15 Urine Bacteria (Auto) 1+ /HPF (Negative) 08/27/18 00:15 Urine WBC Clumps 3+ /HPF 08/27/18 00:15 Urine Mucus Few /HPF 08/27/18 00:15 Vancomycin Trough 13.8 ug/mL (5.0-20.0) 08/30/18 13:53 Blood Type A POSITIVE 08/27/18 13:15 Antibody Screen Negative 08/27/18 13:15 Nutrition/Malnutrition Assess - Dietary Evaluation Nutrition/Malnutrition Findings: Nutrition Notes Start: 08/29/18 15:12 Freq: Status: Active Protocol: Document 08/31/18 12:32 KH (Rec: 08/31/18 13:10 [email or web address]) Co-Sign 08/31/18 12:32 OL Nutrition Notes Initial or Follow up Reassessment Current Diagnosis Decubitus(Pressure Ulcer) Sepsis Other Pertinent Diagnosis Down syndrome, AMS, anemia, functional paraplegia, spinal stenosis Current Diet Pureed Diet Labs/Tests Reviewed Pertinent Medications Coumadin Height 4 ft 2 in Weight 69.7 kg [place] Body Weight (lbs) 50.0 BMI 43.2 Weight Status Morbidly Obese Subjective/Other Information MD consult for DNI education and F/u for PO and ONS intakes . Per RN, PO and ONS intakes are good. Franki has been ordered for pt. to aid in sacral wound healing. Pt. not appropriate for diet education . #2 Nutrition Diagnosis Increased nutrient needs ( specify in comment below) Comments: Protein Etiology wound healing needs As Evidenced by Signs and Symptoms Presence of chronic sacral wounds #1 Nutrition Diagnosis Inadequate oral intake As Evidenced by Signs and Symptoms Pt eating most of food trays Diagnosis Progress(for reassessment Improved documentation) Is patient on ventilator? No Is Patient Ambulatory and/or Out of Bed No REE-(Barron-St. Jeor-confined to bed) 1311.468 Calculation Used for Recommendations Barron-St Jeor Additional Notes Pro: 57 g/day (2.5g/kg IBW) Fluid: 1 ml/kcal Nutrition Intervention Change Diet Order: Continue Pureed diet with thin liquids Add Supplement/Snack (indicate name/kcal Ensure Enlive daily and franki /protein ) BID Provides kCal: 540 Provides Protein (gm) 25 Goal #1 Meet at least 80% of energy and protein needs via PO and ONS intakes Follow-Up By: 09/04/18 Additional Comments F/u: PO and ONS intakes
[2018-09-02] MEDS: ARICEPT PO SCH ×2 (21:54→21:55)
[2018-09-03] MEDS: NACL 0.9% 1000 ML 1,000 ML IV SCH (02:22)
[2018-09-03] MEDS: PROAMATINE PO SCH ×3 (06:08→22:26)
[2018-09-03] MEDS: HumuLIN R SUB-Q SCH ×4 (06:26→17:18)
[2018-09-03 06:48] LABS: Hematocrit 23.7 % (30.3-42.9); Hemoglobin 7.3 gm/dl (10.1-14.3); Mean Corpuscular HGB Conc 31 % (30-34); Mean Corpuscular Volume 91 fl (79-97); Platelet Count 361 K/mm3 (140-440); Red Cell Distribution Width 20.4 % (13.2-15.2)
[2018-09-03 06:52] LABS: INR 1.28 (0.87-1.13)
[2018-09-03] MEDS ORDERED: NACL 0.9% 1000 ML 1,000 ML IV ONE (07:29)
--- NOTE | 2018-09-03 07:32 | Progress Note ---
Assessment and Plan Assessment and plan: - Patient Problems (1) Seizure disorder Current Visit: Yes Status: Acute Plan to address problem: patient with acute seizure given Ativan to stop an issue seizure patient was started on Keppra 500 mg twice a day. Neurology follow-up. Head CT scan evaluated showed advanced atrophy. Also white matter disease. Chest x-ray also evaluated possible aspiration pneumonia that his labs obtained. Already on broad-spectrum antibiotics. (2) Encephalopathy Current Visit: Yes Status: Acute Plan to address problem: Patient encephalopathic and also postictal. Encephalopathy multifactorial seizure disorder, sepsis and underlying dementia. (3) Infected decubitus ulcer Current Visit: Yes Status: Acute Plan to address problem: Infected decubitus ulcer. Continue antibiotics for 4 weeks appreciate infectious disease input. Local wound care. Patient scheduled to go to LTAC on Tuesday for further debridement and treatment of wounds and then back to alf facility. (4) Sepsis Current Visit: Yes Status: Acute Qualifiers: Sepsis type: sepsis due to unspecified organism Qualified Code(s): A41.9 - Sepsis, unspecified organism Plan to address problem: Acute sepsis resolving continue current antibiotic coverage. (5) Acute renal failure Current Visit: No Status: Acute (6) Pulmonary embolism Current Visit: No Status: Acute Qualifiers: Chronicity: acute Acute cor pulmonale presence: without acute cor pulmonale Plan to address problem: Continue current anticoagulation no evidence of bleeding. CT head no evidence of bleeding. (7) Hypotensive- Give a bolus of fluids (8) Secondary Hypercoagluoble state. Continue with wafarin till goal INR Awaiting transfer to LTAC History Interval history: Patient was seen and examined, remains lethargic, groans but not following any direction at this time. No other complaints from nursing staff. Hospitalist Physical - Physical exam Narrative exam: General appearance: Present: mild distress, other (remains encephalopathic) - EENT Eyes: Present: PERRL, EOM intact ENT: clear oral mucosa, poor dentition, no dentition normal, no thrush, no ulcerations - Neck Neck: Present: supple, normal ROM - Respiratory Respiratory effort: normal Respiratory: negative: diminished Details: She did not have any accessory muscle use. She did have deep inspirations consistent with being post ictal. Encephalopathic consistent with both ictal. - Extremities Extremities: pulses intact Extremity abnormal: edema, ulceration, other (debility) Peripheral Pulses: within normal limits - Abdominal General gastrointestinal: non-tender, non-distended, hypoactive bowel sounds, other (obese) - Psychiatric Psychiatric: other (remains encephalopathic appears to have multi-infarct dementia.) - Constitutional Vitals: Temp Pulse Resp BP Pulse Ox 98.5 F 78 20 88/47 97 09/03/18 05:32 09/03/18 05:32 09/03/18 05:32 09/03/18 05:32 09/03/18 05:32 General appearance: Present: mild distress, other (remains encephalopathic) Results - Labs CBC & Chem 7: 09/04/18 05:57 09/04/18 05:57 Labs: Laboratory Last Values WBC 8.9 K/mm3 (4.5-11.0) 09/03/18 06:16 RBC 2.60 M/mm3 (3.65-5.03) L 09/03/18 06:16 Hgb 7.3 gm/dl (10.1-14.3) L 09/03/18 06:16 Hct 23.7 % (30.3-42.9) L D 09/03/18 06:16 MCV 91 fl (79-97) 09/03/18 06:16 MCH 28 pg (28-32) 09/03/18 06:16 MCHC 31 % (30-34) 09/03/18 06:16 RDW 20.4 % (13.2-15.2) H 09/03/18 06:16 Plt Count 361 K/mm3 (140-440) 09/03/18 06:16 Lymph % (Auto) 12.7 % (13.4-35.0) L 08/30/18 13:53 [place] % (Auto) 3.3 % (0.0-7.3) 08/30/18 13:53 Eos % (Auto) 1.0 % (0.0-4.3) 08/30/18 13:53 Baso % (Auto) 0.5 % (0.0-1.8) 08/30/18 13:53 Lymph # 1.4 K/mm3 (1.2-5.4) 08/30/18 13:53 [place] # 0.4 K/mm3 (0.0-0.8) 08/30/18 13:53 Eos # 0.1 K/mm3 (0.0-0.4) 08/30/18 13:53 Baso # 0.1 K/mm3 (0.0-0.1) 08/30/18 13:53 Add Manual Diff Complete 09/01/18 09:00 Total Counted 100 09/01/18 09:00 Seg Neutrophils % 82.5 % (40.0-70.0) H 08/30/18 13:53 Seg Neuts % (Manual) 84.0 % (40.0-70.0) H 09/01/18 09:00 Band Neutrophils % 0 % 09/01/18 09:00 Lymphocytes % (Manual) 13.0 % (13.4-35.0) L 09/01/18 09:00 Reactive Lymphs % (Man) 0 % 09/01/18 09:00 Monocytes % (Manual) 3.0 % (0.0-7.3) 09/01/18 09:00 Eosinophils % (Manual) 0 % (0.0-4.3) 09/01/18 09:00 Basophils % (Manual) 0 % (0.0-1.8) 09/01/18 09:00 Metamyelocytes % 0 % 09/01/18 09:00 Myelocytes % 0 % 09/01/18 09:00 Promyelocytes % 0 % 09/01/18 09:00 Blast Cells % 0 % 09/01/18 09:00 Nucleated RBC % Not Reportable 09/01/18 09:00 Seg Neutrophils # 9.3 K/mm3 (1.8-7.7) H 08/30/18 13:53 Seg Neutrophils # Man 7.0 K/mm3 (1.8-7.7) 09/01/18 09:00 Band Neutrophils # 0.0 K/mm3 09/01/18 09:00 Lymphocytes # (Manual) 1.1 K/mm3 (1.2-5.4) L 09/01/18 09:00 Abs React Lymphs (Man) 0.0 K/mm3 09/01/18 09:00 Monocytes # (Manual) 0.2 K/mm3 (0.0-0.8) 09/01/18 09:00 Eosinophils # (Manual) 0.0 K/mm3 (0.0-0.4) 09/01/18 09:00 Basophils # (Manual) 0.0 K/mm3 (0.0-0.1) 09/01/18 09:00 Metamyelocytes # 0.0 K/mm3 09/01/18 09:00 Myelocytes # 0.0 K/mm3 09/01/18 09:00 Promyelocytes # 0.0 K/mm3 09/01/18 09:00 Blast Cells # 0.0 K/mm3 09/01/18 09:00 WBC Morphology Not Reportable 09/01/18 09:00 Hypersegmented Neuts Not Reportable 09/01/18 09:00 Hyposegmented Neuts Not Reportable 09/01/18 09:00 Hypogranular Neuts Not Reportable 09/01/18 09:00 Smudge Cells Not Reportable 09/01/18 09:00 Toxic Granulation Not Reportable 09/01/18 09:00 Toxic Vacuolation Not Reportable 09/01/18 09:00 Dohle Bodies Not Reportable 09/01/18 09:00 Pelger-Huet Anomaly Not Reportable 09/01/18 09:00 Carlos Rods Not Reportable 09/01/18 09:00 Platelet Estimate c 09/01/18 09:00 Clumped Platelets Not Reportable 09/01/18 09:00 Plt Clumps, EDTA Not Reportable 09/01/18 09:00 Large Platelets Not Reportable 09/01/18 09:00 Giant Platelets Not Reportable 09/01/18 09:00 Platelet Satelliting Not Reportable 09/01/18 09:00 Plt Morphology Comment Not Reportable 09/01/18 09:00 RBC Morphology Not Reportable 09/01/18 09:00 Dimorphic RBCs Not Reportable 09/01/18 09:00 Polychromasia Not Reportable 09/01/18 09:00 Hypochromasia Not Reportable 09/01/18 09:00 Poikilocytosis Not Reportable 09/01/18 09:00 Anisocytosis 1+ 09/01/18 09:00 Microcytosis Not Reportable 09/01/18 09:00 Macrocytosis Not Reportable 09/01/18 09:00 Spherocytes Not Reportable 09/01/18 09:00 Pappenheimer Bodies Not Reportable 09/01/18 09:00 Sickle Cells Not Reportable 09/01/18 09:00 Target Cells Not Reportable 09/01/18 09:00 Tear Drop Cells Not Reportable 09/01/18 09:00 Ovalocytes Not Reportable 09/01/18 09:00 Helmet Cells Not Reportable 09/01/18 09:00 Cervantes-[place] Bodies Not Reportable 09/01/18 09:00 [place] Rings Not Reportable 09/01/18 09:00 [place] Cells Not Reportable 09/01/18 09:00 Bite Cells Not Reportable 09/01/18 09:00 Crenated Cell Not Reportable 09/01/18 09:00 Elliptocytes Not Reportable 09/01/18 09:00 Acanthocytes (Spur) Not Reportable 09/01/18 09:00 Rouleaux Not Reportable 09/01/18 09:00 Hemoglobin C Crystals Not Reportable 09/01/18 09:00 Schistocytes Not Reportable 09/01/18 09:00 Malaria parasites Not Reportable 09/01/18 09:00 Emanuel Bodies Not Reportable 09/01/18 09:00 Hem Pathologist Commnt n 09/01/18 09:00 PT 16.4 Sec. (12.2-14.9) H 09/03/18 06:16 INR 1.28 (0.87-1.13) H 09/03/18 06:16 APTT 37.8 Sec. (24.2-36.6) H 08/27/18 13:15 Sodium 144 mmol/L (137-145) 09/01/18 09:00 Potassium 3.9 mmol/L (3.6-5.0) 09/01/18 09:00 Chloride 113.3 mmol/L (98-107) H 09/01/18 09:00 Carbon Dioxide 19 mmol/L (22-30) L 09/01/18 09:00 Anion Gap 16 mmol/L 09/01/18 09:00 BUN 7 mg/dL (7-17) 09/01/18 09:00 Creatinine 0.7 mg/dL (0.7-1.2) 09/01/18 09:00 Estimated GFR > 60 ml/min 09/01/18 09:00 BUN/Creatinine Ratio 10 % 09/01/18 09:00 Glucose 112 mg/dL (65-100) H 09/01/18 09:00 POC Glucose 93 (70-105) 09/03/18 06:14 Lactic Acid 1.40 mmol/L (0.7-2.0) 08/27/18 20:57 Calcium 7.6 mg/dL (8.4-10.2) L 09/01/18 09:00 Total Bilirubin 0.30 mg/dL (0.1-1.2) 08/27/18 13:15 AST 35 units/L (5-40) 08/27/18 13:15 ALT 35 units/L (7-56) 08/27/18 13:15 Alkaline Phosphatase 87 units/L (35-129) 08/27/18 13:15 Total Creatine Kinase 242 units/L (30-135) H 08/27/18 13:15 Total Protein 6.5 g/dL (6.3-8.2) 08/27/18 13:15 Albumin 2.4 g/dL (3.9-5) L 08/27/18 13:15 Albumin/Globulin Ratio 0.6 % 08/27/18 13:15 Urine Color Yellow (Yellow) 08/27/18 00:15 Urine Turbidity Cloudy (Clear) 08/27/18 00:15 Urine pH 5.0 (5.0-7.0) 08/27/18 00:15 Ur Specific [place] 1.010 (1.003-1.030) 08/27/18 00:15 Urine Protein 30 mg/dl mg/dL (Negative) 08/27/18 00:15 Urine Glucose (UA) Neg mg/dL (Negative) 08/27/18 00:15 Urine Ketones Neg mg/dL (Negative) 08/27/18 00:15 Urine Blood Mod (Negative) 08/27/18 00:15 Urine Nitrite Neg (Negative) 08/27/18 00:15 Urine Bilirubin Neg (Negative) 08/27/18 00:15 Urine Urobilinogen < 2.0 mg/dL (<2.0) 08/27/18 00:15 Ur Leukocyte Esterase Lg (Negative) 08/27/18 00:15 Urine WBC (Auto) > 182.0 /HPF (0.0-6.0) H 08/27/18 00:15 Urine RBC (Auto) 37.0 /HPF (0.0-6.0) 08/27/18 00:15 Urine Bacteria (Auto) 1+ /HPF (Negative) 08/27/18 00:15 Urine WBC Clumps 3+ /HPF 08/27/18 00:15 Urine Mucus Few /HPF 08/27/18 00:15 Vancomycin Trough 13.8 ug/mL (5.0-20.0) 08/30/18 13:53 Blood Type A POSITIVE 08/27/18 13:15 Antibody Screen Negative 08/27/18 13:15 Nutrition/Malnutrition Assess - Dietary Evaluation Nutrition/Malnutrition Findings: Nutrition Notes Start: 08/29/18 15:12 Freq: Status: Active Protocol: Document 08/31/18 12:32 KH (Rec: 08/31/18 13:10 [email or web address]) Co-Sign 08/31/18 12:32 OL Nutrition Notes Initial or Follow up Reassessment Current Diagnosis Decubitus(Pressure Ulcer) Sepsis Other Pertinent Diagnosis Down syndrome, AMS, anemia, functional paraplegia, spinal stenosis Current Diet Pureed Diet Labs/Tests Reviewed Pertinent Medications Coumadin Height 4 ft 2 in Weight 69.7 kg [place] Body Weight (lbs) 50.0 BMI 43.2 Weight Status Morbidly Obese Subjective/Other Information MD consult for DNI education and F/u for PO and ONS intakes . Per RN, PO and ONS intakes are good. Franki has been ordered for pt. to aid in sacral wound healing. Pt. not appropriate for diet education . #2 Nutrition Diagnosis Increased nutrient needs ( specify in comment below) Comments: Protein Etiology wound healing needs As Evidenced by Signs and Symptoms Presence of chronic sacral wounds #1 Nutrition Diagnosis Inadequate oral intake As Evidenced by Signs and Symptoms Pt eating most of food trays Diagnosis Progress(for reassessment Improved documentation) Is patient on ventilator? No Is Patient Ambulatory and/or Out of Bed No REE-(White-St. Jeor-confined to bed) 1311.468 Calculation Used for Recommendations White-St Jeor Additional Notes Pro: 57 g/day (2.5g/kg IBW) Fluid: 1 ml/kcal Nutrition Intervention Change Diet Order: Continue Pureed diet with thin liquids Add Supplement/Snack (indicate name/kcal Ensure Enlive daily and franki /protein ) BID Provides kCal: 540 Provides Protein (gm) 25 Goal #1 Meet at least 80% of energy and protein needs via PO and ONS intakes Follow-Up By: 09/04/18 Additional Comments F/u: PO and ONS intakes
[2018-09-03 08:30] LABS: BUN/Creatinine Ratio 8; Blood Urea Nitrogen 5 mg/dL (7-17); Calcium 7.8 mg/dL (8.4-10.2); Hemolysis Index 1
[2018-09-03] MEDS: KEPPRA 750 MG in NACL 0.9% 100 ML IV SCH ×2 (09:34→22:31)
[2018-09-03] MEDS: LOVENOX SUB-Q SCH ×2 (09:41→22:26)
[2018-09-03] MEDS: FOLVITE PO SCH (09:42)
[2018-09-03] MEDS: FEOSOL PO SCH ×2 (09:42→22:26)
[2018-09-03] MEDS: PEPCID PO SCH ×2 (09:43→22:26)
[2018-09-03] MEDS: SODIUM CHLORIDE FLUSH SYRINGE 10 ML IV SCH ×2 (09:45→22:27)
[2018-09-03] MEDS: ROCEPHIN/NS 2 GM/100 ML 2 GM/100 ML BAG IV SCH (10:49)
[2018-09-03 11:38] LABS: Anisocytosis 1+; Basophils % (Manual) 0 % (0.0-1.8); Platelet Estimate Consistent w Auto; Total Cells Counted 100
--- NOTE | 2018-09-03 14:32 | Progress Note ---
Assessment and Plan -Severe sepsis with septic shock -Sacral decubitius ulcer, infected POA -Lactic acidosis -Hyperglycemia -Hypernatremia -Acute on chronic encephalopathy( toxic, metabolic) -h/o CAD, unknown EF -Perihilar infiltrates on CXR -Anemia -History of PE, subtherapeutic INR -Continue antibiotics to complete a 4 week course per discussions with ID -Wound care, has wound vac to the left trochanteric region -Aspiration precautions -Accuchecks with glycemic control. Target glucose 140-180 mg/dL -Therapeutic anticoagulation -Mobility program for pressure ulcer prevention -Stop IVFs Discussed care plan with the sister and with the patient's RN. -Discharge planning, LTACH for IV antibiotics and wound care Subjective Date of service: 09/03/18 Principal diagnosis: Severe sepsis with septic shock; Sacral decubitus ulcer (infected POA) Interval history: Patient is seen today for: severe sepsis with septic shock, decubitus ulcer, encephalopathy Seen and examined at bedside; 24-hour events reviewed; nursing and respiratory care staff consulted; no adverse overnight events reported to me; No fevers, no vomiting, tolerating her diet. Wound care on going Sister at the bedside visiting. Objective Vital Signs - 12hr 09/03/18 09/03/18 09/03/18 05:32 10:00 11:00 Temperature 98.5 F Pulse Rate 78 Respiratory 20 Rate Blood Pressure 88/47 138/73 O2 Sat by Pulse 97 99 Oximetry 09/03/18 11:53 Temperature 99.1 F Pulse Rate 95 H Respiratory 28 H Rate Blood Pressure 117/70 O2 Sat by Pulse 100 Oximetry Constitutional: appears uncomfortable, other (middle aged AAF with downs syndrome fascies and mildly increased respiratory effort) Eyes: non-icteric ENT: oropharynx moist Neck: supple, no lymphadenopathy, no JVD Effort: mildly labored Ascultation: Bilateral: diminished breath sounds, rhonchi Percussion: Bilateral: not dull Cardiovascular: regular rate and rhythm Gastrointestinal: normoactive bowel sounds, soft, non-tender, non-distended Integumentary: decubitus ulcer, other (left hip wound vac) Extremities: no cyanosis, edema, other (contracted) Neurologic: non-focal exam (grossly), pupils equal and round, unable to assess (otherwise) Psychiatric: anxious, other CBC and BMP: 09/04/18 05:57 09/04/18 05:57 ABG, PT/INR, D-dimer: PT/INR, D-dimer PT 16.4 Sec. (12.2-14.9) H 09/03/18 06:16 INR 1.28 (0.87-1.13) H 09/03/18 06:16 Abnormal lab findings: Abnormal Labs 08/27/18 08/27/18 08/27/18 00:15 13:15 13:15 WBC 15.2 H RBC 3.34 L Hgb 9.1 L Hct 29.2 L MCH 27 L RDW 19.3 H Lymph % (Auto) 12.2 L Seg Neutrophils % 81.1 H Seg Neuts % (Manual) Lymphocytes % (Manual) Seg Neutrophils # 12.4 H Lymphocytes # (Manual) PT 16.4 H INR 1.28 H APTT 37.8 H Sodium Potassium Chloride Carbon Dioxide BUN Creatinine Glucose POC Glucose Lactic Acid Calcium Total Creatine Kinase Albumin Urine WBC (Auto) > 182.0 H 08/27/18 08/27/18 08/28/18 13:15 15:18 04:16 WBC RBC Hgb Hct MCH RDW Lymph % (Auto) Seg Neutrophils % Seg Neuts % (Manual) Lymphocytes % (Manual) Seg Neutrophils # Lymphocytes # (Manual) PT 16.8 H INR 1.32 H APTT Sodium 147 H Potassium Chloride 112.3 H Carbon Dioxide BUN 33 H Creatinine Glucose 121 H POC Glucose Lactic Acid 2.40 H* Calcium 8.3 L Total Creatine Kinase 242 H Albumin 2.4 L Urine WBC (Auto) 08/29/18 08/29/18 08/29/18 03:23 04:55 05:56 WBC RBC Hgb Hct MCH RDW Lymph % (Auto) Seg Neutrophils % Seg Neuts % (Manual) Lymphocytes % (Manual) Seg Neutrophils # Lymphocytes # (Manual) PT 15.7 H INR 1.21 H APTT Sodium Potassium Chloride Carbon Dioxide BUN Creatinine Glucose POC Glucose 141 H 118 H Lactic Acid Calcium Total Creatine Kinase Albumin Urine WBC (Auto) 08/29/18 08/29/18 08/29/18 10:14 13:56 17:36 WBC RBC Hgb Hct MCH RDW Lymph % (Auto) Seg Neutrophils % Seg Neuts % (Manual) Lymphocytes % (Manual) Seg Neutrophils # Lymphocytes # (Manual) PT INR APTT Sodium Potassium Chloride Carbon Dioxide BUN Creatinine Glucose POC Glucose 171 H 176 H 136 H Lactic Acid Calcium Total Creatine Kinase Albumin Urine WBC (Auto) 08/29/18 08/30/18 08/30/18 21:38 00:31 05:31 WBC RBC Hgb Hct MCH RDW Lymph % (Auto) Seg Neutrophils % Seg Neuts % (Manual) Lymphocytes % (Manual) Seg Neutrophils # Lymphocytes # (Manual) PT INR APTT Sodium Potassium Chloride Carbon Dioxide BUN Creatinine Glucose POC Glucose 178 H 184 H 184 H Lactic Acid Calcium Total Creatine Kinase Albumin Urine WBC (Auto) 08/30/18 08/30/18 08/30/18 07:09 08:39 11:28 WBC RBC Hgb Hct MCH RDW Lymph % (Auto) Seg Neutrophils % Seg Neuts % (Manual) Lymphocytes % (Manual) Seg Neutrophils # Lymphocytes # (Manual) PT 109.8 H 16.5 H INR 15.43 H* 1.29 H APTT Sodium Potassium Chloride Carbon Dioxide BUN Creatinine Glucose POC Glucose 174 H Lactic Acid Calcium Total Creatine Kinase Albumin Urine WBC (Auto) 08/30/18 08/30/18 08/30/18 13:53 17:56 Unknown WBC 11.3 H RBC 2.81 L Hgb 7.6 L Hct 25.4 L MCH 27 L RDW 19.4 H Lymph % (Auto) 12.7 L Seg Neutrophils % 82.5 H Seg Neuts % (Manual) Lymphocytes % (Manual) Seg Neutrophils # 9.3 H Lymphocytes # (Manual) PT INR APTT Sodium Potassium Chloride 112.2 H Carbon Dioxide BUN Creatinine 0.6 L Glucose 137 H POC Glucose 126 H Lactic Acid Calcium 8.0 L Total Creatine Kinase Albumin Urine WBC (Auto) 08/31/18 08/31/18 08/31/18 00:33 04:48 16:48 WBC RBC Hgb Hct MCH RDW Lymph % (Auto) Seg Neutrophils % Seg Neuts % (Manual) Lymphocytes % (Manual) Seg Neutrophils # Lymphocytes # (Manual) PT 15.9 H INR 1.23 H APTT Sodium Potassium Chloride Carbon Dioxide BUN Creatinine Glucose POC Glucose 126 H 148 H Lactic Acid Calcium Total Creatine Kinase Albumin Urine WBC (Auto) 08/31/18 09/01/18 09/01/18 21:35 00:14 03:15 WBC RBC Hgb Hct MCH RDW Lymph % (Auto) Seg Neutrophils % Seg Neuts % (Manual) Lymphocytes % (Manual) Seg Neutrophils # Lymphocytes # (Manual) PT 16.6 H INR 1.30 H APTT Sodium Potassium Chloride Carbon Dioxide BUN Creatinine Glucose POC Glucose 134 H 177 H Lactic Acid Calcium Total Creatine Kinase Albumin Urine WBC (Auto) 09/01/18 09/01/18 09/01/18 04:44 09:00 09:00 WBC RBC 3.42 L Hgb 9.6 L Hct MCH RDW 20.4 H Lymph % (Auto) Seg Neutrophils % Seg Neuts % (Manual) 84.0 H Lymphocytes % (Manual) 13.0 L Seg Neutrophils # Lymphocytes # (Manual) 1.1 L PT INR APTT Sodium Potassium Chloride 113.3 H Carbon Dioxide 19 L BUN Creatinine Glucose 112 H POC Glucose 161 H Lactic Acid Calcium 7.6 L Total Creatine Kinase Albumin Urine WBC (Auto) 09/01/18 09/01/18 09/02/18 11:33 18:53 01:22 WBC RBC Hgb Hct MCH RDW Lymph % (Auto) Seg Neutrophils % Seg Neuts % (Manual) Lymphocytes % (Manual) Seg Neutrophils # Lymphocytes # (Manual) PT INR APTT Sodium Potassium Chloride Carbon Dioxide BUN Creatinine Glucose POC Glucose 190 H 163 H 132 H Lactic Acid Calcium Total Creatine Kinase Albumin Urine WBC (Auto) 09/02/18 09/02/18 09/02/18 08:55 12:26 17:13 WBC RBC Hgb Hct MCH RDW Lymph % (Auto) Seg Neutrophils % Seg Neuts % (Manual) Lymphocytes % (Manual) Seg Neutrophils # Lymphocytes # (Manual) PT 15.9 H INR 1.23 H APTT Sodium Potassium Chloride Carbon Dioxide BUN Creatinine Glucose POC Glucose 137 H 131 H Lactic Acid Calcium Total Creatine Kinase Albumin Urine WBC (Auto) 09/03/18 09/03/18 09/03/18 06:16 06:16 08:02 WBC RBC 2.60 L Hgb 7.3 L Hct 23.7 L D MCH RDW 20.4 H Lymph % (Auto) Seg Neutrophils % Seg Neuts % (Manual) 87.0 H Lymphocytes % (Manual) 10.0 L Seg Neutrophils # Lymphocytes # (Manual) 0.9 L PT 16.4 H INR 1.28 H APTT Sodium 146 H Potassium 3.5 L Chloride 113.4 H Carbon Dioxide BUN 5 L Creatinine 0.6 L Glucose POC Glucose Lactic Acid Calcium 7.8 L Total Creatine Kinase Albumin Urine WBC (Auto) Allied health notes reviewed: nursing
[2018-09-03] MEDS: COUMADIN PO SCH (17:36)
[2018-09-03] MEDS: NIZORAL TP SCH (18:48)
[2018-09-03] MEDS: ARICEPT PO SCH (22:26)
[2018-09-04] MEDS: PROAMATINE PO SCH ×2 (05:51→21:01)
[2018-09-04 06:16] LABS: Hematocrit 24.6 % (30.3-42.9); Hemoglobin 7.7 gm/dl (10.1-14.3); Mean Corpuscular HGB Conc 31 % (30-34); Mean Corpuscular Volume 91 fl (79-97); Platelet Count 372 K/mm3 (140-440)
[2018-09-04 06:19] LABS: Red Cell Distribution Width 21.1 % (13.2-15.2)
[2018-09-04] MEDS: HumuLIN R SUB-Q SCH ×3 (06:20→12:00)
[2018-09-04 06:27] LABS: INR 1.33 (0.87-1.13)
[2018-09-04 07:00] LABS: BUN/Creatinine Ratio 7; Blood Urea Nitrogen 5 mg/dL (7-17); Hemolysis Index 0
--- NOTE | 2018-09-04 10:35 | Progress Note ---
Addendum entered and electronically signed by NELSON MURRAY NP 09/04/18 16:54: f/u ID office - 09/25/18 Original Note: Assessment and Plan Cultures: 09/13/2017 sacral wound culture: Proteus mirabilis. 08/27/2018 urine culture: No growth 08/27/2018 blood culture: No growth 08/29/2018 Debridement culture: in process, no growth thus far A/P: 48-year-old female who is a detention resident with Down syndrome, dementia, debility, sacral decubitus ulcer, spinal stenosis, paraplegia, admitted with: #1 Septic shock: Likely secondary to infected sacral decubitus ulcer, stage IV and possible UTI: Status post debridement which was all the way down to the bone on 08/29/2018 by general surgery. Hence, eventually will plan to treat as acute osteomyelitis. #2 UTI: UA on admission showed significant pyuria. Patient cannot provide any history. Urine culture so far with no growth. Has received adequate antibiotics. #3 Acute encephalopathy: On background of Down syndrome and dementia. #4 Penicillin allergy: Per review of her chart in detail, it seems patient received IV Ceftriaxone during a prior admission in 08/2017, hence Cephalosporins should be safe and she has been tolerating it well. #5 Right hip effusion noted on CT: likely inflammatory. Watch for now. Recs: Continue IV Ceftriaxone 2 gm q24 hrs while inpatient Discharge on Ceftriaxone 2gms q 24 hours for 4 weeks from date of debridement 09/26/18 Order placed with case management F/u in ID office Nelson Murray NP [facility] M: [phone] O:[phone] Subjective Date of service: 09/04/18 Principal diagnosis: Severe sepsis with septic shock; Sacral decubitus ulcer (infected POA) Interval history: Patient seen and examined. Nonverbal at baseline. No acute distress observed. Nurses notes, labs and reports reviewed. No family at bedside. Objective - Exam Narrative Exam: Constitutional: awake, non verbal. No distress Head, Ears, Nose: Normocephalic, atraumatic. External ears, nose normal Eyes: Conjunctivae/corneas clear. No icterus. No ptosis. Neck: Supple, no meningeal signs Oral: unable to examine. Cardiovascular: S1, S2 normal. Respiratory: Good air entry, clear to auscultation bilaterally GI: Soft, non-tender; bowel sounds normal. No peritoneal signs Musculoskeletal: contractures +, no pedal edema. Sacral wound + with dressing Skin: No rash. Hem/Lymphatic: No palpable cervical or supraclavicular nodes. No lymphangitis Psych: no agitation Neurological: Awake, alert, non verbal. - Constitutional Vitals: Vital Signs Temp Pulse Resp BP Pulse Ox 98.0 F 75 18 112/60 99 09/04/18 06:36 09/04/18 06:36 09/04/18 06:36 09/04/18 06:36 09/04/18 06:36 Temperature -Last 24 Hours Temperature 98.0 F Temperature 98.6 F Temperature 98.8 F Temperature 99.1 F - Labs CBC & Chem 7: 09/04/18 05:57 09/04/18 05:57 Labs: Abnormal lab results 09/03/18 09/03/18 09/03/18 Range/Units 06:16 18:58 19:15 RBC (3.65-5.03) M/mm3 Hgb (10.1-14.3) gm/dl Hct (30.3-42.9) % RDW (13.2-15.2) % Seg Neuts % (Manual) 87.0 H (40.0-70.0) % Lymphocytes % (Manual) 10.0 L (13.4-35.0) % Lymphocytes # (Manual) 0.9 L (1.2-5.4) K/mm3 PT (12.2-14.9) Sec. INR (0.87-1.13) POC ABG pO2 120 H (80-105) Sodium (137-145) mmol/L Potassium (3.6-5.0) mmol/L Chloride (98-107) mmol/L BUN (7-17) mg/dL Glucose (65-100) mg/dL POC Glucose 121 H (70-105) Calcium (8.4-10.2) mg/dL 09/03/18 09/04/18 09/04/18 Range/Units 21:39 05:57 05:57 RBC 2.70 L (3.65-5.03) M/mm3 Hgb 7.7 L (10.1-14.3) gm/dl Hct 24.6 L (30.3-42.9) % RDW 21.1 H (13.2-15.2) % Seg Neuts % (Manual) (40.0-70.0) % Lymphocytes % (Manual) (13.4-35.0) % Lymphocytes # (Manual) (1.2-5.4) K/mm3 PT (12.2-14.9) Sec. INR (0.87-1.13) POC ABG pO2 (80-105) Sodium 149 H (137-145) mmol/L Potassium 3.3 L (3.6-5.0) mmol/L Chloride 114.3 H (98-107) mmol/L BUN 5 L (7-17) mg/dL Glucose 101 H (65-100) mg/dL POC Glucose 109 H (70-105) Calcium 8.0 L (8.4-10.2) mg/dL 09/04/18 Range/Units 05:57 RBC (3.65-5.03) M/mm3 Hgb (10.1-14.3) gm/dl Hct (30.3-42.9) % RDW (13.2-15.2) % Seg Neuts % (Manual) (40.0-70.0) % Lymphocytes % (Manual) (13.4-35.0) % Lymphocytes # (Manual) (1.2-5.4) K/mm3 PT 16.9 H (12.2-14.9) Sec. INR 1.33 H (0.87-1.13) POC ABG pO2 (80-105) Sodium (137-145) mmol/L Potassium (3.6-5.0) mmol/L Chloride (98-107) mmol/L BUN (7-17) mg/dL Glucose (65-100) mg/dL POC Glucose (70-105) Calcium (8.4-10.2) mg/dL
[2018-09-04] MEDS: KEPPRA 750 MG in NACL 0.9% 100 ML IV SCH (11:17)
[2018-09-04] MEDS: ROCEPHIN/NS 2 GM/100 ML 2 GM/100 ML BAG IV SCH (11:17)
[2018-09-04] MEDS: FEOSOL PO SCH (11:23)
[2018-09-04] MEDS: FOLVITE PO SCH (11:23)
[2018-09-04] MEDS: LOVENOX SUB-Q SCH (11:23)
[2018-09-04] MEDS: PEPCID PO SCH (11:23)
--- NOTE | 2018-09-04 11:58 | Discharge Summary ---
Providers - Providers Date of Admission: 08/27/18 15:22 Attending physician: EL SHLUTZ MD 08/27/18 12:34 Consult to Physician [CONS] Stat Comment: DR FAM NOTIFIED Consulting Provider: MAURIZIO FAM Physician Instructions: Reason For Exam: infected wound 08/27/18 14:57 Consult to Wound/ET Nurse [CONS] Routine Reason For Exam: wound eval 08/27/18 18:43 Consult to Physician [CONS] Urgent Comment: Consulting Provider: GWEN HURD Physician Instructions: Reason For Exam: sepsis 08/28/18 18:17 Consult to Physician [CONS] Routine Comment: Consulting Provider: DINORAH GAVIN Physician Instructions: Reason For Exam: infected sacral decub 08/29/18 04:16 Consult to Dietitian/Nutrition [CONS] Routine Physician Instructions: Reason For Exam: Reason for Consult: Malnutrition 08/29/18 04:26 Speech Therapy Evaluation and Treat [CONS] Routine Reason For Exam: evlaution of swallow function 08/30/18 11:38 Consult to PICC Line RN [CONS] Routine Reason For Exam: vasopressors Type Line:: PICC Primary care physician: UNDERGRADUATE INTERN Hospitalization Reason for admission: septic shock Condition: Fair Hospital course: 48 YO Female Group Home Facility Resident with Downs Syndrome, Dementia, Debility, Sacral Decubitus Ulcer, HTN, GERD, Spinal Stenosis, Depression, Paraplegia presents to ED for evaluation. As per ID staff, the patient was found to have foul smelling discharge in the area of her sacral decubitus ulcer, as well as fever to 101.2 , and hypotension, was also less responsive. On admission the patient was diagnosed with septic shock secondary to infected decubitus ulcer was started on empiric antibiotic coverage with also consult to surgery for excisional debridement which was done on 08/29/2018. Culture results as noted below Past Medical History: hx of pulmonary embolism, other (downs syndrome, GERD, dementia) Cultures: 09/03/2017 sacral wound culture: Proteus mirabilis. 08/27/2018 urine culture: No growth 08/27/2018 blood culture: No growth 08/29/2018 Debridement culture: in process, no growth thus far Her hospital course was complicated with onset of acute seizure. Imaging study including CT of the head only showed, some chronic attenuation concerning for chronic microvascular disease but no acute pathology noted. Patient was given a dose of ativan on 09/02/18. Patient remained lethargic with possible post ictal state and recommended for further management at the LTAC. wafrain was restarted and also Doubhoff was place. ABG did not show any hypercabia. Plan at ltac is to complete antibiotics and continue with mental status management. patient was admitted to our facility from [facility] ID recommended Recs: Continue IV Ceftriaxone 2 gm q24 hrs, plan for 4 weeks from date of debridement DX Sepsis Infected decubitus ulcer POA septic shock Acute Cystitis Bilat feet ulcers POA- not infected septic shock acute metabolic Encephalopathy hx of PE Lactic acidosis Hyperglycemia Hypernatremia Acute on chronic encephalopathy( toxic, metabolic) h/o CAD, unknown EF Perihilar infiltrates on CXR Anemia History of PE, subtherapeutic INR Right hip effusion noted on CT: likely inflammatory. Watch for now. Disposition: [id number] MEDICARE CERT LT[facility] Time spent for discharge: 35 mins Core Measure Documentation - Palliative Care Palliative Care/ Comfort Measures: Not Applicable - Core Measures Any of the following diagnoses?: none Exam - Physical Exam Narrative exam: General appearance: Present: mild distress, other (remains encephalopathic) - EENT Eyes: Present: PERRL, EOM intact ENT: clear oral mucosa, poor dentition, no dentition normal, no thrush, no ulcerations - Neck Neck: Present: supple, normal ROM - Respiratory Respiratory effort: normal Respiratory: negative: diminished Details: She did not have any accessory muscle use. She did have deep inspirations consistent with being post ictal. Encephalopathic consistent with both ictal. - Extremities Extremities: pulses intact Extremity abnormal: edema, ulceration, other (debility) Peripheral Pulses: within normal limits - Abdominal General gastrointestinal: non-tender, non-distended, hypoactive bowel sounds, other (obese) - Psychiatric Psychiatric: other (remains encephalopathic appears to have multi-infarct dementia.) - Constitutional Vitals: Temp Pulse Resp BP Pulse Ox 98.0 F 75 18 112/60 99 09/04/18 06:36 09/04/18 06:36 09/04/18 06:36 09/04/18 06:36 09/04/18 06:36 Plan Follow up with: PRIMARY CAREMD [Primary Care Provider] - 3-5 Days Forms: Warfarin Discharge Instruction Prescriptions: levETIRAcetam 500 MG/NS 0.75% [Keppra 500 mg/Ns 0.75% 50 ml] 500 mg IV Q12HR #60 bag
[2018-09-04] MEDS ORDERED: AFLURIA QUAD 2018-2019 SYRINGE IM ONE (12:00)
[2018-09-04] MEDS ORDERED: PNEUMOVAX 23 IM ONE (12:00)
[2018-09-04] MEDS: NIZORAL TP SCH (12:22)
[2018-09-04] MEDS: SODIUM CHLORIDE FLUSH SYRINGE 10 ML IV SCH (12:22)
--- NOTE | 2018-09-04 15:15 | XRay Report ---
AP ABDOMEN: HISTORY: Tube placement. A feeding tube has been inserted which terminates in the antrum of the stomach. The abdominal gas pattern is unremarkable. No masses or organomegaly is identified and there is no gross evidence of free air or fluid. No significant soft tissue calcifications are noted. IVC filter is in place at the L4 level. IMPRESSION: Feeding tube as described. Unremarkable abdomen.
[2018-09-04 16:56] VITALS: BP 136/83
[2018-09-04] MEDS ORDERED: KEPPRA PO SCH (22:00)
== END 2018-09-04 17:30 | DRG 853 ==
LOC: ED 12:16 → IMCU 15:22 → CC1 08-28 00:41 → 3A 08-28 18:33 → CC1 08-28 20:56 → 3A 09-01 20:00
PROVIDERS: ADMIT Internal Medicine; ATTEND Internal Medicine
PROC: 0JB70ZZ Excision of Back Subcutaneous Tissue and Fascia, Open Approach (ICD-10-PCS; principal; 2018-08-29)
PROC: 02HV33Z Insertion of Infusion Device into Superior Vena Cava, Percutaneous Approach (ICD-10-PCS; 2018-08-30)
PROC: 4A033R1 Measurement of Arterial Saturation, Peripheral, Percutaneous Approach (ICD-10-PCS; 2018-09-03)
PROC: 3E0234Z Introduction of Serum, Toxoid and Vaccine into Muscle, Percutaneous Approach (ICD-10-PCS; 2018-09-04)
DX: A41.9 Sepsis, unspecified organism (principal); L89.154 Pressure ulcer of sacral region, stage 4; R65.21 Severe sepsis with septic shock; G92 Toxic encephalopathy; E87.0 Hyperosmolality and hypernatremia; N39.0 Urinary tract infection, site not specified; N17.9 Acute kidney failure, unspecified; D68.59 Other primary thrombophilia; K21.9 Gastro-esophageal reflux disease without esophagitis; I10 Essential (primary) hypertension; F32.9 Major depressive disorder, single episode, unspecified; F44.4 Conversion disorder with motor symptom or deficit; I25.10 Atherosclerotic heart disease of native coronary artery without angina pectoris; M25.451 Effusion, right hip; L97.529 Non-pressure chronic ulcer of other part of left foot with unspecified severity; L97.519 Non-pressure chronic ulcer of other part of right foot with unspecified severity; G40.909 Epilepsy, unspecified, not intractable, without status epilepticus; G30.9 Alzheimer's disease, unspecified; F02.80 Dementia in other diseases classified elsewhere, unspecified severity, without behavioral disturbance, psychotic disturbance, mood disturbance, and anxiety; D64.9 Anemia, unspecified; Q90.9 Down syndrome, unspecified; Z95.1 Presence of aortocoronary bypass graft; Z86.711 Personal history of pulmonary embolism; Z88.6 Allergy status to analgesic agent; Z88.0 Allergy status to penicillin; Z79.899 Other long term (current) drug therapy; Z79.01 Long term (current) use of anticoagulants; Z74.01 Bed confinement status; Z79.51 Long term (current) use of inhaled steroids; Z95.828 Presence of other vascular implants and grafts; Z23 Encounter for immunization
CPT/HCPCS: 36415; 36600; 70450; 71045; 72192; 74018; 80048; 80053; 80202; 81001; 82140; 82550; 82803; 82962; 85007; 85025; 85027; 85610; 85730; 86850; 86900; 86901; 87040; 87076; 87086; 87116; 87186; 90471; 90686; 90732; 93005; 93010; 94760; 96365; 96367; G0378; A6260; G0008; G0009; J0696; J1650; J1815; J1953; J2060; J3370; J7030; J7040